=== PATIENT | male | born 1980 | race African-American/Black ===

== ENCOUNTER 2018-12-25 06:13 | Inpatient (IN) | payer OTHER ==
[~2018-12-25] VITALS: Ht 182.9 cm; Wt 93.4 kg
[2018-12-25] VITALS (14 sets, daily range): BP systolic 110–154; BP diastolic 66–96
--- NOTE | 2018-12-25 05:49 | Anethesia Preoperative Eval ---
Anesthesia Pre-op PMH/ROS General Date of Evaluation: Dec 25, 2018 Anesthesiologist: Jay ASA Score: ASA 1 Mallampati Score Class I : Soft palate, uvula, fauces, pillars visible Class II: Soft palate, uvula, fauces visible Class III: Soft palate, base of uvula visible Class IV: Only hard plate visible Mallampati Classification: Class I Surgeon: Sara Diagnosis: Lumbar radiculopathy Surgical Procedure: Left microdiscectomy L5-S1 Anesthesia History: none Family History: no anesthesia problems Allergies: Coded Allergies: CODEINE (Verified Allergy, Intermediate, hives, 12/24/18) Medications: see eMAR Patient NPO?: Yes NPO Date: Dec 24, 2018 NPO Time: 22:00 Past Medical History Cardiovascular: Denies: HTN, CAD, [place], valve dz, arrhythmia, other Pulmonary: Denies: asthma, COPD, GUTIERREZ, other Gastrointestinal/Genitourinary: Denies: GERD, CRI, ESRD, other Neurologic/Psychiatric: Denies: dementia, CVA, depression/anxiety, TIA, other Endocrine: Denies: DM, hypothyroidism, steroids, other HEENT: Denies: cataract (L), cataract (R), glaucoma, [place] (L), [place] (R), other Hematology/Immune: Denies: anemia, DVT, bleeding disorder, other Musculoskeletal/Integumentary: Denies: OA, RA, DJD, DDD, edema, other PSxH Narrative: Denies Anesthesia Pre-op Phys. Exam Physician Exam see chart Constitutional: NAD Cardiovascular: RRR Respiratory: CTA Airway Exam Mallampati Score: Class II MO: full ROM: full Anesthesia Pre-op A/P Labs see chart Studies Pre-op Studies: EKG - sr Risk Assessment & Plan Assessment: ASA II Plan: GA Status Change Before Surgery: No Pre-Antibiotics Drug: Sulma Mills MD Dec 25, 2018 05:49
[~2018-12-25 06:13] MED LIST: DiphenhydrAMINE 50mg/ml Inj IVP PRN; LORazepam Inj 2mg/ml 1ml IV PRN; LR 1000ml 1,000 ML IVLG SCH; Midazolam 2mg/2ml Inj IVP PRN; ceFAZolin sod 2 GM in D5W 55 ML IVPB ONE; fentaNYL 100 mcg/2 mL IV PRN
[2018-12-25] MEDS ORDERED: Midazolam 2mg/2ml Inj ONE (06:16)
[2018-12-25] MEDS ORDERED: fentaNYL 100 mcg/2 mL IV ONE (06:16)
[2018-12-25] MEDS ORDERED: Propofol 200mg/20ml IV ONE (06:16)
[2018-12-25] MEDS ORDERED: Lidocaine 1% MPF 10mg/ml 5ml ONE (06:16)
[2018-12-25] MEDS ORDERED: Gelfoam Size TOPIC ONE (06:28)
[2018-12-25] MEDS ORDERED: Thrombin 5000 units TOPIC ONE ×2 (06:28→08:08)
[2018-12-25] MEDS ORDERED: Bacitracin 50000 Units Vial ONE (06:28)
[2018-12-25] MEDS ORDERED: Bupivacaine w/Epi 0.5% 30ml Vial INJ ONE (06:28)
--- NOTE | 2018-12-25 06:41 | Pre-Procedure Note/Attestation ---
Pre-Procedure Note/Attestation Complete Prior to Procedure Planned Procedure: left Procedure Narrative: left l5s1 microdiscectomy hemilaminotomy foraminotomy Indications for Procedure Pre-Operative Diagnosis: Left L5S1 herniation Attestation I attest that I discussed the nature of the procedure; its benefits; risks and complications; and alternatives (and the risks and benefits of such alternatives ), prior to the procedure, with the patient (or the patient's legal account retention representative). I attest that, if there was a reasonable possibility of needing a blood transfusion, the patient (or the patient's legal account retention representative) was given the [facility] standardized written summary, pursuant to the Alexandre Gardi Blood Safety Act ([place] Health and Safety Code # 1645, as amended). I attest that I re-evaluated the patient just prior to the surgery and that there has been no change in the patient's H&P, except as documented below: Renny Ruiz MD Dec 25, 2018 06:41
--- NOTE | 2018-12-25 06:42 | Brief Operative Note ---
Immediate Post Operative Note Operative Note Chief Complaint: back pain and radiculopathy Pre-op Diagnosis: Left L5S1 herniation Procedure: left l5s1 microdiscectomy hemilaminotomy foraminotomy Post-op Diagnosis: same as pre-op Findings: consistent w/pre-op dx studies Surgeon: Sara Technical Support Coordinator: Glen Anesthesia: general Specimen: none Complications: none Condition: stable Fluids: IVF Estimated Blood Loss: minimal Drains: none Implant(s) used?: Renny Dang MD Dec 25, 2018 06:42
[2018-12-25] MEDS ORDERED: Norco 5mg/325mg tab ORAL PRN (06:45)
[2018-12-25] MEDS ORDERED: Milk of Magnesia 30ml Ud ORAL PRN (06:45)
[2018-12-25] MEDS ORDERED: Morphine Sulfate 2mg/ml Inj(IV/IM USE ONLY) IV PRN (06:45)
[2018-12-25] MEDS ORDERED: Chloraseptic Spray 20mL Bottle ORAL PRN (06:45)
[2018-12-25] MEDS ORDERED: HYDROcodone/Acetamin 7.5/325 tab ORAL PRN (06:45)
[2018-12-25] MEDS ORDERED: Metoclopramide 10mg/2ml Inj IVP PRN (06:45)
[2018-12-25] MEDS ORDERED: Naloxone 0.4mg/ml Inj IVP PRN (06:45)
[2018-12-25] MEDS ORDERED: Morphine Sulfate 4mg/ml Inj (IV USE ONLY) IV PRN (06:45)
[2018-12-25] MEDS ORDERED: Propofol 1,000mg/ 100ml btl IV ONE (07:00)
[2018-12-25] MEDS ORDERED: LR 1000ml ONE (07:00)
[2018-12-25] MEDS ORDERED: Sterile Water Irrig 1000ml IRRIG ONE (07:00)
[2018-12-25] MEDS ORDERED: CEPHALEXIN500 MG ORAL (07:38)
[2018-12-25] MEDS ORDERED: MULTIVITAMINS1 EAC2 ORAL (07:39)
[2018-12-25] MEDS ORDERED: Vancomycin 1gm vial IVPB ONE (07:59)
[2018-12-25] MEDS ORDERED: NS Irrig 1000ml IRRIG ONE (08:07)
[2018-12-25] MEDS ORDERED: Ropivacaine 5mg/ml Vial 30ml INJ ONE (08:29)
[2018-12-25] MEDS ORDERED: Neosporin Oint Ud Pkt TOPIC ONE (08:45)
--- NOTE | 2018-12-25 09:05 | NUR ---
CASE MANAGEMENT:REVIEW 38 YR OLD MALE HERE FOR ELECTIVE SURGERY SI: BACK PAIN AND RADICULOPATHY 97.8 58 18 124/79 97% ON RA IS: TO SURGERY FOR: MICRODISCECTOMY HEMILAMINOTOMY FORAMINOTOMY IV ANCEF Q8HRS IV DECADRON Q6HRS : CURRENTLY IN SURGERY INTERQUAL CRITERIA MET
--- NOTE | 2018-12-25 09:09 | Immediate Post-Op Evaluation ---
Immediate Post-Op Evalulation Immediate Post-Op Evalulation Procedure: Left microdicectomy L5-S1 Date of Evaluation: Dec 25, 2018 Time of Evaluation: 09:10 IV Fluids: 700 Blood Products: 0 Estimated Blood Loss: 25 Urinary Output: 0 Blood Pressure Systolic: 112 Blood Pressure Diastolic: 71 Pulse Rate: 60 Respiratory Rate: 18 O2 Sat by Pulse Oximetry: 100 Temperature (Fahrenheit): 97.1 Pain Score (1-10): 0 Nausea: No Vomiting: No Complications 0 Patient Status: awake, reacts, patent, none Hydration Status: adequate Drug: Ancef 2g Given Within 1 Hr of Incision: Yes Time Given: 07:15 Sulma Goff MD Dec 25, 2018 09:09
--- NOTE | 2018-12-25 11:50 | NUR ---
NURSE NOTES: RN RECEIVED PT FROM BERNARDO VELOZ RN. STABLE CONDITION. VSS. PT URINATED USING URINAL 1,000CC. IN NO APPARENT DISTRESS AT THIS TIME. PT IS DISORIENTED BUT OPENS EYES SPONTANEOUSLY TO VOICE. ABLE TO FOLLOW COMMANDS. GIRLFRIEND AT BEDSIDE. BED IN LOWEST POSITION WITH BEDSIDE RAILS X2 RAISED. CALL LIGHT WITHIN REACH. WILL CONTINUE TO MONITOR.
--- NOTE | 2018-12-25 12:34 | Diagnostic Imaging Report ---
INDICATION: Pain, intraoperative TECHNIQUE: Intraoperative imaging Fluoroscopy time: 4.1 seconds Total dose: 0.11864 mGym2 Total number of images: One COMPARISON: None FINDINGS: Intraoperative image demonstrates surgical tool projected at the posterior aspect of what is presumably the L5-S1 disc IMPRESSION: Intraoperative imaging, as described
[2018-12-25] MEDS: Dexamethasone 4mg/ml vial IVP SCH ×2 (12:58→17:25)
[2018-12-25] MEDS: NS w/KCl 20mEq 1,000 ML IV SCH ×2 (12:58→21:15)
[2018-12-25] MEDS: Morphine Sulfate 4mg/ml Inj (IV USE ONLY) IV PRN ×2 (14:09→17:25)
[2018-12-25] MEDS: HYDROmorphone 1mg/ml Carpuject IVP PRN ×2 (15:11→19:51)
[2018-12-25] MEDS: ceFAZolin sod 1 GM in D5W 55 ML IV SCH ×2 (15:11→21:15)
[2018-12-25] MEDS: DiphenhydrAMINE 50mg/ml Inj IVP PRN ×2 (16:33→21:25)
[2018-12-25] MEDS: Docusate 100mg cap ORAL SCH (17:25)
--- NOTE | 2018-12-25 18:00 | NUR ---
NURSE NOTES: PT RE-EDUCATED ON NOT TWISTING AND TURNING BODY WHEN REPOSITIONING. NEEDS RN ASSIST WHEN DOING LOG ROLL. PT VERBALIZED UNDERSTANDING OF TEACHING. PT TOLERATING LUNCH, ASKS TO BE UPGRADED TO REGULAR DIET. PT EXPERIENCING ITCHING WITH DILAUDID IVP. DR HILL MADE AWARE AND RECEIVED ORDER FOR PRN BENADRYL 25MG IVP AND OK TO ADVANCE TO REGULAR DIET. BED IN LOWEST POSITION WITH BEDSIDE RAILS X2 RAISED. PT LYING IN SUPINE POSITION, ICE PACK APPLIED TO SURGICAL SITE. WILL CONTINUE TO MONITOR.
--- NOTE | 2018-12-25 18:53 | 48 Hour Post Anesthesia Eval ---
Post Anesthesia Evaluation Procedure: Left microdicectomy L5-S1 Date of Evaluation: Dec 25, 2018 Time of Evaluation: 18:52 Blood Pressure Systolic: 140 0: 82 Pulse Rate: 59 Respiratory Rate: 20 Temperature (Fahrenheit): 97.6 O2 Sat by Pulse Oximetry: 99 Airway: patent Nausea: No Vomiting: No Pain Intensity: 3 Hydration Status: adequate Cardiopulmonary Status: Stable Mental Status/LOC: patient returned to baseline Follow-up Care/Observations: 0 Post-Anesthesia Complications: 0 Follow-up care needed: N/A Moshe Wells MD Dec 25, 2018 18:53
--- NOTE | 2018-12-25 20:07 | NUR ---
HAND-OFF: Report given to John Paul TANG RN.
--- NOTE | 2018-12-25 21:00 | Operative Note - Dictated ---
DATE OF OPERATION: 12/25/2018 SURGEON: Renny Ruiz MD, Orthopaedic Spine Surgeon. TUBE MACHINE OPERATOR SURGEON: Gabo Carroll M.D. ANESTHESIA: General endotracheal anesthesia. PREOPERATIVE DIAGNOSES: 1. Intractable back pain. 2. Intractable leg pain. 3. Worsening radiculopathy. 4. Weakness. 5. Herniated nucleus pulposus, L5-S1 herniation. 6. Neural foraminal stenosis, L5-S1. POSTOPERATIVE DIAGNOSES: 1. Intractable back pain. 2. Intractable leg pain. 3. Worsening radiculopathy. 4. Weakness. 5. Herniated nucleus pulposus, L5-S1 herniation. 6. Neural foraminal stenosis, L5-S1. PROCEDURES PERFORMED: 1. Left-sided L5-S1 microdiscectomy. 2. L5-S1 hemilaminotomy, foraminotomy, and medial facetectomy. 3. L5-S1 neural foraminotomy 4. Use of intraoperative microscope. 5. Supervision and interpretation of intraoperative fluoroscopy. 6. Supervision and interpretation of somatosensory-evoked potential and free-running EMG monitoring. ESTIMATED BLOOD LOSS: Less than 100 mL. COMPLICATIONS: None. INDICATIONS FOR THE PROCEDURE: Jared presents for intractable back pain and radiculopathy. The patient tried and failed a prolonged course of conservative management, including but not limited to chiropractic therapy, physical therapy, nonsteroidal anti-inflammatory drugs, medication, ice packs as well as epidural injection. Despite these therapies, the patient still developed recalcitrant pain and elected for definitive management in the form of left-sided L5-S1 microdiscectomy; L5-S1 hemilaminotomy, foraminotomy, and medial facetectomy We had a long discussion with him regarding definitive surgical treatment options. Jared has two issues at hand one is the testicular pain and the other is the radicular pains and back pains. The patient's MRI demonstrated herniated nucleus pulposus, L5-S1 herniation and neural foraminal stenosis, L5-S1, and as a result, I felt this was the cause of his radiculopathy and back pains and not necessarily his testicular pains so as a stage one procedure I felt that he would benefit from the discectomy as well as neural foraminotomy at this level. He understands that he may need more procedures for his testicular pains at a later date. We had a long discussion with the patient regarding the risks, alternatives, and benefits of surgery. Our description of the risks included a discussion in person as well as a signed consent which detailed all pertinent risks and the procedure itself. Briefly, our discussion included but was not limited to infection, bleeding, pseudarthrosis, spinal cord injury, neurovascular injury, dural tear, CSF leak, neuropathy, paralysis, permanent weakness/drop foot, paresthesias blindness, palsy, and weakness. The patient understood there may be a need for revision surgery or additional procedures. Approach-related complications including dysphonia, dysphagia, blindness, permanent vocal cord and neural injury, hematoma, swallowing and breathing difficulty. Medical complications including liver, kidney, shock, and cardiopulmonary failure. Anesthesia complications including , swelling. Damage to the musculature, larynx (voice injury or loss),esophagus (throat), trachea, blood vessels and muscles (muscular sprain) and lungs (pneumothorax) during this surgical procedure. Injury to deeper structures may be temporary or permanent. The patient understood these and elected to proceed. A written and verbal consent was given. We discussed the pros and cons of all the alternatives. We discussed the uncertainties associated with the decision. Afterwards, I assessed the patient's understanding and explored their preferences. All questions were answered and no guarantees were given. Medical clearance was obtained prior to surgery. INTRAOPERATIVE FINDINGS: There was a rather large disc herniation noted on the left foraminal interspace at L5-S1 which was seen through a clear tear in the posterior longitudinal ligament. A fragment was protruding outside the PLL. This was carefully mobilized and peeled off the corresponding neural elements using a combination of arthroscopic pituitary, narrow pituitary and there was acute tear in the disc meaning that it was not calcified and/or hardened as a contrary to disc herniation. DESCRIPTION OF PROCEDURE: Under the benefit of general endotracheal anesthesia and with the assistance of the entire operative team, the patient was moved from the [facility] onto the operative table in the prone position on a Magnus frame. The head was secured and positioned appropriately. Bilateral arms were secured with Gel pads and foam and all bony prominences were padded. The bilateral lower extremity SCD and LUDY hose were placed for DVT prophylaxis. A surgical timeout was called which corroborated our planned procedure. Preoperative antibiotics were administered within 30 minutes of the incision for prophylaxis. Decadron was given for preoperative steroids. Using lateral radiography, the operative levels were delineated. An incision was marked based on our interpretation of lateral radiography and afterwards the body was prepped and draped in the usual sterile manner. The family was notified that we were ready to commence surgery and were called in the waiting room hourly for updates. An incision was based on our lateral fluoroscopic image to center the incision at the L5-S1 interspace. The wound was prepped and draped in the usual sterile fashion. Using a scalpel, a midline incision was taken down through the skin and subcutaneous tissues until the overlying hemilaminae of L5-S1 were visualized. Next, using meticulous hemostasis, hemilamotomies were dissected and retractors were placed. Using a MostLikely dental, we confirmed placement at the L5-S1 interspace. We next turned our attention to our decompression. A standard hemilaminotomy, foraminotomy, and medial facetectomy was performed at each level in standard fashion using a Midas-Arjun type AM8 drill bit, straight and angled curettage, and [place] 4 rongeurs until the lateral thecal sac margin and traversing nerve root was visualized. All remainders of the ligamentum flavum and lateral bony margins were resected in total with angled curettage and [place] 4 rongeurs until the lateral thecal sac margin and traversing nerve root was visualized and decompressed. We next turned our attention toward our L5-S1 microdiscectomy on the left side. A [place] 4 was used to gently mobilize the thecal sac medially and this was held retracted with a bayonetted nerve root retractor. It was at this point that we noted a large broad-based disc protrusion with encroachment dorsally on the thecal sac neural foraminal contents. A bayonet and nerve root retractor was then placed carefully to retract the thecal sac and a discectomy was performed using a combination of a long handled 15 blade scalpel, downgoing and straight pituitaries, and downgoing curettage. Afterward the disc space was irrigated twice with 20 mL of antibiotic-impregnated saline. All loose and free-floating disc fragments were carefully resected with a narrow pituitary. Having been satisfied with our decompression after our discectomy of all neural elements, we next turned our attention to our neural foraminoplasty/foraminotomy. This was performed with a combination of kerrison rongeurs and pituitaries which allowed for re-creation of the neural foraminal arch at L5-S1. Afterwards hemostasis was obtained with 60 mL of antibiotic-impregnated saline followed by FloSeal and Gelfoam. After sponge and needle count were found to be correct, next we turned our attention to closure. Closure consisted of 1-0 Vicryl in standard interrupted fashion. Zosyn was placed deep to the fascia and superficial to the fascia for antibiotic prophylaxis. Skin closure was performed with 2-0 Vicryl in interrupted fashion followed by a running Monocryl for the skin. Final dressings consisted of Dermabond for the superficial skin, Telfa, and Tegaderm. The patient tolerated the procedure well. The patient was extubated after the conclusion of surgery without incident. We discussed the findings of the surgery with the family upon completion of the case. At this point, the patient will be transferred to the spine floor for further observation. Renny Ruiz M.D. DR: Catalino JOB#: [id number] CC: MELONY
[2018-12-25] MEDS: HYDROcodone/Acetamin 7.5/325 tab ORAL PRN (21:25)
--- NOTE | 2018-12-25 22:17 | NUR ---
NURSE NOTES: Patient in bed awake and oriented. VSS. 08/06 surgical pain noted. PRN Dilaudid given. PRN reglan given as well. Per patient he usually starts to itch when given Dilaudid and he wants to take it with Benadryl but it was not due yet. Per patient he stated its fine. Needs attended. Due meds given. Dressing is clean and dry. In stable condition.
--- NOTE | 2018-12-25 22:23 | NUR ---
NURSE NOTES: PRN Benadryl given for itching. No hives or skin redness. Will continue to monitor.
[2018-12-26] VITALS: BP 114/63
[2018-12-26] MEDS: Dexamethasone 4mg/ml vial IVP SCH ×2 (00:04→06:00)
[2018-12-26 04:00] VITALS: BP 108/63
[2018-12-26] MEDS: HYDROcodone/Acetamin 7.5/325 tab ORAL PRN ×2 (04:00→08:44)
[2018-12-26] MEDS: ceFAZolin sod 1 GM in D5W 55 ML IV SCH (06:49)
--- NOTE | 2018-12-26 07:55 | NUR ---
NURSE NOTES: Received report from Yayo Mcclure RN. Patient a/o x4 lying on the bed. c/o 5/10 pain on back surgical site. Soma was given. Back surgical site is dry and intact. IV patent. Bed in lowest position, call light within reach. Will continue to monitor.
[2018-12-26 08:00] VITALS: BP 124/85
[2018-12-26] MEDS: Docusate 100mg cap ORAL SCH (08:43)
[2018-12-26] MEDS: HYDROmorphone 1mg/ml Carpuject IVP PRN (10:22)
[2018-12-26] MEDS: DiphenhydrAMINE 50mg/ml Inj IVP PRN (10:22)
--- NOTE | 2018-12-26 10:22 | NUR ---
REHAB MED PT NOTE CONSULT RECEIVED, CHIARA COMPLTED, PATIENT WILL BENEFIT FROM SKILLED PT DURING STAY FOR RETURN TO [facility]. RECOMEND HOME AT [place]. SPINAL PRECAUTIONS REVIEWED, LOG ROLL SHOWN. PATIENT PREFERRED USE OF CRUTCHES FOR ADDITIONAL COMFORT WITH GAIT, NO LOSS OF BALANCE, SBA FOR ALL MOBILITY. PLAN OF CARE INITIATD. EPIFANIO GALLOWAY PT DPT Addendum: 12/26/18 at 1022 by EPIFANIO GALLOWAY PT Amended: Links added.
--- NOTE | 2018-12-26 10:43 | NUR ---
CASE MANAGEMENT:REVIEW 12/26/18 SI: POD #1 S/P MICRODISCECTOMY HEMILAMINOTOMY FORAMINOTOMY 97.6 64 20 124/85 98% ON RA IS: COLACE PO BID IV BENADRYL Q4 PRN NORCO PO Q3HRS PRN IV DILAUDID Q2HRS PRN : MED/SURG STATUS 3 EAST
[2018-12-26 12:00] VITALS: BP 127/83
--- NOTE | 2018-12-26 13:20 | NUR ---
NURSE NOTES: Patient stat last BM was [address] Ruiz notified. ordered ducolax suppository one time. Noted and carried out.
--- NOTE | 2018-12-26 14:00 | NUR ---
NURSE NOTES: Patient refused suppository and have BM right now.
--- NOTE | 2018-12-26 15:45 | Discharge Summary ---
DATE OF ADMISSION: 12/25/2018 DATE OF DISCHARGE: 12/26/2018 DATE OF ADMISSION: 12/25/2018 DATE OF DISCHARGE: 12/26/2018 PROCEDURE PERFORMED DURING ADMISSION: Microdiskectomy, lumbar 5-sacral 1, left sided. REASON FOR ADMISSION: Herniation, lumbar 5-sacral 1. HOSPITAL COURSE/TREATMENT RENDERED: DISCHARGE PHYSICAL EXAM: 1. Patient was ambulating with and without the assistance of physical therapy. 2. Prior to discharge home incision was clean and dry with minimal swelling. 3. Follows commands. 4. Alert and oriented. 5. Weber discontinued, voiding. 6. Incentive spirometer at bedside. 7. IVF hep locked. MOTOR: Demonstrates expected postoperative bulk and tone. Moves biceps, triceps, and deltoid musculature on command. Moves hip flexors, quadriceps, tibialis anterior, EHL, gastrocsoleus musculature on command as well. TREATMENT RENDERED: 1. Daily nursing care. 2. Physical Therapy. 3. Occupational Therapy. 4. Intravenous medications. 5. Oral medications. 6. Daily postoperative examinations by Spine surgery team. CONDITION OF PATIENT ON DISCHARGE: The condition on discharge is stable for discharge to home. DISCHARGE INSTRUCTIONS: Our specific instructions relating to physical activity, medications diet and follow-up care are detailed in our standard operative folder and were given to this patient prior to surgery. We will however summarize these briefly as stated below. Regarding physical activity we would like the patient to limit their flexion, extension and rotation. We also require a limitation on their bending lifting and twisting. All medication has been called in prior to surgery to their pharmacy of choice. They can resume their regular diet once tolerated. We would like them to shower and limit soaking the wound in a tub/Jacuzzi/the ocean for a period of one month or until the incision is completely healed. We will have them follow up in our office in three weeks time for their regularly scheduled appointment. They understand to call our office tomorrow to schedule the time for their three week followup appointment. The patient will notify us should they experience any increase in the severity of pain, redness/swelling/ or drainage from their incision. Renny Ruiz M.D. DR: DES JOB#: [id number] CC:
[2018-12-26 16:00] VITALS: BP 111/61
--- NOTE | 2018-12-26 16:30 | NUR ---
NURSE NOTES: Discharge instruction was given. Belongings checked with the patient. Removed IV line. Patient discharged accompanied by his girl friend in stable condition.
[2018-12-26] MEDS ORDERED: NS 275ml ONE (16:59)
[2018-12-26] MEDS ORDERED: NS Irrig 1000ml ONE (16:59)
== END 2018-12-26 17:00 | disposition home or self-care (01) | DRG 520 ==
LOC: SDSOVERFLO 06:13 → 3E 11:03
PROC: 01NB0ZZ Release Lumbar Nerve, Open Approach (ICD-10-PCS; principal; 2018-12-25 06:30)
PROC: 0SB40ZZ Excision of Lumbosacral Disc, Open Approach (ICD-10-PCS; principal; 2018-12-25 06:30)
DX: M51.17 Intervertebral disc disorders with radiculopathy, lumbosacral region (principal); M48.07 Spinal stenosis, lumbosacral region; E66.9 Obesity, unspecified
CPT/HCPCS: 36415; 72020; 76000; 86850; 86900; 86901; 87081; 94003; 94150; J2250; J2405; J2765

== ENCOUNTER 2019-02-05 11:00 | Emergency (ER) | payer SELFPAY ==
[~2019-02-05] VITALS: Ht 182.9 cm; Wt 93.0 kg
[~2019-02-05 11:00] MED LIST changes: +CEPHALEXIN500 MG ORAL; -DiphenhydrAMINE 50mg/ml Inj IVP PRN; -LORazepam Inj 2mg/ml 1ml IV PRN; -LR 1000ml 1,000 ML IVLG SCH; +MULTIVITAMINS1 EAC2 ORAL; -Midazolam 2mg/2ml Inj IVP PRN; -ceFAZolin sod 2 GM in D5W 55 ML IVPB ONE; -fentaNYL 100 mcg/2 mL IV PRN
--- NOTE | 2019-02-05 11:23 | NUR ---
ED Nurse Note: PT WALKED IN TO ER TODAY FROM HOME. AOX4. PT C/O HEADACHE, PAIN 10/10, LOWER BACK PAIN RADIATING TO BILATERAL HIPS, AND LEFT LEG PAIN X 6 DAYS AGO. PT ALSO C/O NUMBNES OF LEFT LEG X HAVING BACK SURGERY 11/2018. PT STATES HE WAS DRIVING LONG DISTANCE X 6 DAYS AGO AND THAT PAIN HAS BEEN BAD SINCE THEN. GAIT STEADY. PT DENIES DIZZINESS.
[2019-02-05 11:27] VITALS: BP 125/83
[2019-02-05] MEDS ORDERED: Metoclopramide 10mg/2ml Inj IVP ONE (11:30)
[2019-02-05] MEDS ORDERED: Gadavist 7.5mMol/7.5ml vial IV PRN (11:45)
[2019-02-05 11:59] LABS: EOSINOPHILS % (AUTO) 3.6 % (0.0-3.0); HEMATOCRIT 44.5 % (42.0-52.0); HEMOGLOBIN 15.6 G/DL (14.2-18.0); LYMPHOCYTES % (AUTO) 19.7 % (20.0-45.0); MEAN CORPUSCULAR VOLUME 92 FL (80-99); MONOCYTES % (AUTO) 10.4 % (1.0-10.0); NEUTROPHILS % (AUTO) 65.3 % (45.0-75.0); PLATELET COUNT 117 K/UL (150-450); RED BLOOD COUNT 4.84 M/UL (4.70-6.10); RED CELL DISTRIBUTION WIDTH 11.7 % (11.6-14.8); WHITE BLOOD COUNT 5.1 K/UL (4.8-10.8)
[2019-02-05 11:59] LABS: APPEARANCE,URINE CLEAR; BILIRUBIN, URINE NEGATIVE (NEGATIVE); GLUCOSE, URINE (UA) NEGATIVE (NEGATIVE); KETONES,URINE NEGATIVE (NEGATIVE); LEUKOCYTE ESTERASE ,URINE 1+ (NEGATIVE); NITRITE,URINE NEGATIVE (NEGATIVE); PH,URINE 7 (4.5-8.0); PROTEIN,URINE 1+ (NEGATIVE); UROBILINOGEN,URINE 1 MG/DL (0.0-1.0)
[2019-02-05] MEDS ORDERED: Solu-MEDROL 125mg Inj IVP ONE (12:00)
[2019-02-05] MEDS ORDERED: Morphine Sulfate 4mg/ml Inj (IV USE ONLY) IVP ONE ×2 (12:00→15:45)
[2019-02-05] MEDS ORDERED: DiphenhydrAMINE 50mg/ml Inj IVP ONE (12:00)
[2019-02-05 12:04] LABS: COLOR,URINE YELLOW
[2019-02-05 12:12] LABS: ANION GAP 9 mmol/L (5-15); BLOOD UREA NITROGEN 12 mg/dL (7-18); CALCIUM 9.1 MG/DL (8.5-10.1); CARBON DIOXIDE 28 MMOL/L (21-32); CHLORIDE 105 MMOL/L (98-107); SODIUM 142 MMOL/L (136-145)
[2019-02-05 12:16] LABS: ALANINE AMINOTRANSFERASE 73 U/L (12-78); ALBUMIN 3.8 G/DL (3.4-5.0); ALBUMIN/GLOBULIN RATIO 0.9 (1.0-2.7); ALKALINE PHOSPHATASE 73 U/L (46-116); ASPARTATE AMINO TRANSFERASE 32 U/L (15-37); BILIRUBIN,TOTAL 0.5 MG/DL (0.2-1.0)
--- NOTE | 2019-02-05 12:22 | NUR ---
ED Nurse Note: PT TO MRI VIA ANDREW.
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
--- NOTE | 2019-02-05 16:02 | Diagnostic Imaging Report ---
Indication: Severe headache, history of recent lumbar spine surgery Technique: sagittal T1 fast spin echo, axial T1 and T2 FLAIR PROPELLER,, sagittal T2 FLAIR PROPELLER, axial T2 FS PROPELLER, T2* GRE, axial diffusion weighted images, post contrast axial and coronal T1 FLAIR PROPELLER images. ADC and exponential ADC maps generated Comparison: none Findings: . No abnormal areas of restricted diffusion to suggest acute infarction. No acute hemorrhage or edema. No mass effect nor midline shift. No abnormal contrast enhancement. Normal size ventricles and extra axial CSF spaces. There is a left maxillary sinus mucous retention cyst incidentally noted. . Impression: Negative Incidental finding of left maxillary sinus mucous retention cyst
--- NOTE | 2019-02-05 16:09 | Diagnostic Imaging Report ---
Indication: Headache, whole-body pain, status post recent spine surgery Technique: Sagittal T1 FLAIR, sagittal T2 FRFSE, sagittal STIR, axial T2 FRFSE, axial 3-D COSMIC ASPIR, pre and postcontrast axial and sagittal T1 FSE images of the cervical spine Comparison: none Findings: There is some image degradation due to motion artifact. Bony alignment is normal. Vertebral marrow signal is normal. The vertebral body heights are preserved. The disc heights are preserved. The intrinsic cord signal is normal. No significant disc bulge or protrusion, spinal stenosis, or neural foraminal stenosis is demonstrated. No unusual contrast enhancement is demonstrated The included extraspinal soft tissues are unremarkable Impression: Negative
--- NOTE | 2019-02-05 16:17 | Diagnostic Imaging Report ---
Indication: Headache, back and body pain status post spinal surgery Technique: Sagittal T1 FLAIR PROPELLER, sagittal T2 PROPELLER, sagittal STIR, axial T1 FLAIR PROPELLER, axial T2 PROPELLER, pre and postcontrast axial and sagittal T1 fat-saturated images of the thoracic spine Comparison: none Findings: The bony alignment is normal. Vertebral body heights are preserved. The disc spaces are preserved. Vertebral marrow signal is normal. Vertebral disc signal is normal. Intrinsic cord signal is normal. There is prominent posterior epidural fat. No significant disc bulge or protrusion, spinal stenosis, or neural foraminal stenosis is demonstrated. No unusual contrast enhancement is demonstrated. There is incidental finding of multiple left renal cysts. The remaining extraspinal soft tissues are unremarkable. Impression: Essentially unremarkable exam Incidental finding of left renal cysts
--- NOTE | 2019-02-05 16:39 | Diagnostic Imaging Report ---
Indication: Back pain and headache, status post recent spinal surgery Technique: Sagittal T1, sagittal T2 PROPELLER, sagittal STIR PROPELLER, axial T2 FRFSE, axial T1, axial T2 PROPELLER with disc cuts,. Pre and postcontrast fat saturated sagittal and axial T1-weighted images Comparison: none Findings: Posterior to L5, there is enhancement of the subcutaneous fat and of the musculature surrounding the L5 spinous process, particularly to the left of midline. The enhancement extends through what appears to be a left-sided L5 laminotomy defect, and into the left side of the epidural space at and below the level of the L5-S1 disc. The enhancing epidural fat is only mildly thickened and only minimally if at all compresses or displaces the spinal canal. The enhancement does surround the left S1 nerve root. No focal nonenhancing area to suggest abscess is demonstrated. The T2 images also do not show any focal fluid collections, either epidural or paraspinal. No abnormal psoas muscle enhancement is demonstrated. There is posterior disc protrusion at L5-S1, with the disc protruding approximately 5 mm beyond the posterior border of the vertebral body. There is minimal narrowing of the disc at this level, and the disc demonstrate loss of STIR signal, unlike the other lumbar discs. No evidence of intradiscal fluid. There is no evidence of disc enhancement or enhancement of the adjacent vertebral bodies. There is a small high intensity zone within the protruding disc. The disc abnormality does not result in any evidence of spinal canal stenosis and there is no neural foraminal compromise. There is minimal increased T1 and T2, decreased STIR signal at the L5 inferior endplate, presumably reflecting mild Modic type 2 degenerative changes. The bony alignment is normal. The vertebral body heights are preserved. The disc spaces are otherwise preserved. The vertebral marrow signal is normal other than the inferior L5 changes described above. The conus medullaris terminates at the L1 level. Normal distribution of the nerve roots. At the other levels, no significant disc bulge or protrusion, spinal stenosis, or neural foraminal stenosis. The included extra spinal soft tissues are remarkable for the presence of left renal cysts. Impression: There is evidence of prior surgery, with a laminotomy defect involving the left L5 lamina. There is soft tissue edema and enhancement along an incision posterior to L5, along the paraspinous musculature at and below L5, with enhancement extending into the laminectomy defect and occupying the left lateral and anterior epidural space at and just below the L5-S1 disc. Whether edema and enhancement is due to routine post surgical inflammatory changes or represents an element of infection is uncertain. However, there is no evidence of any organized fluid collection to suggest abscess, either epidural or within the paraspinous musculature. There is also no evidence of psoas inflammation. The inflammation surrounds the left S1 nerve root, but there is no evidence of spinal canal or nerve root compression related to this. No evidence of discitis or osteomyelitis Mild L5 disc degeneration, with posterior central protrusion of the disc, small high intensity zone, and adjacent L5 inferior endplate Modic type II changes Incidental finding left renal cysts
[2019-02-05] MEDS ORDERED: Ketorolac 30mg Inj IV ONE (16:45)
--- NOTE | 2019-02-05 17:45 | NUR ---
ED Nurse Note: PT PROVIDED WITH DINNER TRAY.
--- NOTE | 2019-02-05 18:05 | NUR ---
ED Nurse Note: US AT BEDSIDE.
[2019-02-05 19:06] VITALS: BP 120/80
--- NOTE | 2019-02-05 19:07 | NUR ---
ED Nurse Note: PT LAYING PEACEFULLY IN BED IN NAD. AOX4. DISCHARGE PAPERWORK EXPLAINED TO PT. PT VERBALIZES UNDERSTANDING AND ALL QUESTIONS ANSWERED. DISCHARGE PAPERWORK GIVEN TO PT, IV AND ID WRISTBAND REMOVED. PT WALKED OUT OF ER WITH STEADY GAIT AND ALL BELONGINGS.
--- NOTE | 2019-02-06 02:45 | History and Physical Report ---
DATE OF ADMISSION: 02/05/2019 NOTE: "POOR AUDIO QUALITY" CHIEF COMPLAINT: Lower left-sided testicle pain and headaches with neck pain. HISTORY OF PRESENT ILLNESS: The patient is a 38-year-old male who has a history of prior lumbar hemilaminotomy and microdiscectomy performed at [facility] on December 25, 2018, at L5-S1, left-sided. He currently reports noted pain that is significant, increase of his pain, and presents to emergency room for workup and previously postsurgical and noted a complete resolution of his back pain, resolution of his lower extremity radicular symptoms, however, he described persistent left-sided testicular pain. Now, he describes pains which have returned. He also noted abnormal sensation of his hands with numbness and tingling in all of his fingers. Upon further discussion, the patient has recently traveled by a long airplane drive to [place] and after he [place], he of the pain. Upon further discussion, while in [place], for four days in a row, he traveled 6 hours each day together with his son, who recently celebrated birthday. After the multiple-day stress, he developed a resurgence of present in his early postoperative stage. He currently describes the following symptoms. Headaches from the posterior aspect of the skull into the posterior orbit and posterior eye. Difficulty with vision in regard to wearing glasses and/or contacts, which gave him trouble with his vision and the headache began. Neck pain which he describes the pain . He also describes resolution of the low back pain still which was present in early postoperative stage, however, severe after the surgery. He has also noted an aggravation of his left-sided lower extremity radiculopathy. He also noted an aggravation of his left-sided testicular pain which before had resolved with the epidural injection, however, now it is more of a constant nature. He also described pain along the S1 distribution in his posterior thigh, posterior calf, his buttocks, and plantar aspect of his foot. He also noticed a definitive significant increase of his sensitivity to certain foods and appetite. He has had some nausea of note lately and has been vomiting three times . PAST MEDICAL HISTORY: Recent lumbar microdiscectomy at L5-S1 in November. PAST SURGICAL HISTORY: Microdiscectomy done by Dr. Ruiz at L5-S1, left-sided. PHYSICAL EXAMINATION: He has of vision in the hospital bed. He has just completed the ultrasound of his lower extremities. He has sensation fairly intact in almost of the along the anterior, medial, posterior aspect of the thighs and dorsum and plantar surface of the foot. Motor strength 5/5 throughout the extensor hallucis longus, peroneus musculature, tibialis anterior, gastrocsoleus, hamstring musculature as well as quadriceps. He was noted to have no pain with straight leg raise, elevation. Negative Homans sign and again no pain with plantar or dorsiflexion of the foot. He is completely comfortable at rest and no pain in or around his lower extremity and nontender incision, which is clean, dry, and intact with no swelling. Motor intact of the upper extremities with biceps, triceps, deltoid rated 5/5, throughout the lower extremities, sensation intact to . IMPRESSION AND PLAN: This is a 38-year-old male with prior microdiscectomy in November of L5-S1, who presents with new-onset resurgence of radicular symptoms following a recent trip and long distance travel. Today, the patient had an MRI of the cervical spine, thoracic spine, brain, and lumbar spine. The MRI report is stated by Radiology, however, my impression of the MRI of the brain, there is question of some plaque formation near the ventricle of the axial scans, however, I do not see any tracking along the ventricles perpendicular off the limbs, which is concerned at times for multiple sclerosis. On the cervical MRI, the MRI is of poor quality and there may be evidence of some scratchy artifact the cord itself with of the multiple sclerosis. I discussed this with the patient that I think at this point that symptoms of the upper extremity and lower extremity may be related to neurologic condition. With that, I would recommend a neurologist. He will try to help accommodate this with recommendation. His MRI of lumbar spine demonstrates postsurgical changes with an L5-S1 herniation in comparison with a prior MRI, which was significantly smaller in size. The disk itself has decreased in height. There is a small area of the disk protruding posteriorly and along the left neural foramina. I discussed this with the patient it may be attributable to reherniation versus postsurgical changes only after surgery which have been underlying. His left testicular pain at this time is decreased with medication given in the emergency room. I would recommend an epidural injection which was given by Dr. Paulino Whiteside again at the upper lumbar level of L1-L2, which in the past had significantly decreased his testicular pain. He is currently comfortable. He has no headaches, has no , has no leg radiculopathy whatsoever. He was therefore cleared to be discharged home and follow up after therapy appointment later this month on the . I gave him a prescription for Percocet 5/325 to be taken as needed. He . He has been instructed to take Benadryl while on Percocet to avoid any allergic reaction. Renny Ruiz M.D. DR: Catalino JOB#: [id number] CC:
--- NOTE | 2019-02-06 17:27 | Cardiology Report ---
APPROVED REPORT EKG Measurement Heart [id number] Normal sinus rhythm Normal ECG
== END 2019-02-05 19:08 | disposition home or self-care (01) ==
LOC: EMR 11:50
DX: R51 Headache (principal); N28.1 Cyst of kidney, acquired; M54.9 Dorsalgia, unspecified; Z98.890 Other specified postprocedural states; Z88.6 Allergy status to analgesic agent; Z88.5 Allergy status to narcotic agent
CPT/HCPCS: 36415; 70553; 72156; 72157; 72158; 80053; 81003; 85025; 85610; 85730; 86850; 86900; 86901; 93005; 93970; 96361; 96374; 96375; 96376; 99284; A9585; J1200; J1885; J2270; J2765; J2930

== ENCOUNTER 2020-07-22 08:25 | Day surgery (SDC) | payer OTHER ==
[~2020-07-22] VITALS: Ht 182.9 cm; Wt 86.6 kg
[2020-07-22] VITALS (8 sets, daily range): BP systolic 98–116; BP diastolic 58–74
--- NOTE | 2020-07-22 07:37 | Pre-Procedure Note/Attestation ---
Pre-Procedure Note/Attestation Complete Prior to Procedure Planned Procedure: right Procedure Narrative: knee diagnostic arthroscpy, possible menisectomy, synovectomy Indications for Procedure Pre-Operative Diagnosis: right knee internal derangment Attestation I attest that I discussed the nature of the procedure; its benefits; risks and complications; and alternatives (and the risks and benefits of such alternatives), prior to the procedure, with the patient (or the patient's legal manufacturers service representative). I attest that, if there was a reasonable possibility of needing a blood transfusion, the patient (or the patient's legal manufacturers service representative) was given the [facility] standardized written summary, pursuant to the Alexandre Josué Blood Safety Act ([place] Health and Safety Code # 1645, as amended). I attest that I re-evaluated the patient just prior to the surgery and that there has been no change in the patient's H&P, except as documented below: Gabo Carroll MD Jul 22, 2020 07:37
--- NOTE | 2020-07-22 07:37 | Operative Note - PDOC ---
Operative Note Operative Note Pre-op Diagnosis: right knee internal derangment Procedure: see op report Post-op Diagnosis: same as pre-op plus Operative Findings: consistent w/pre-op dx studies Anesthesia: MAC Specimen: none Complications: none Condition: stable Estimated Blood Loss: none Implant(s) used?: No Gabo Carroll MD Jul 22, 2020 07:37
[~2020-07-22 08:25] MED LIST changes: +CYCLOBENZAPRINE10 MG ORAL; +GABAPENTIN100 MG ORAL; +MELOXICAM15 MG PO; +ceFAZolin 1gm IVPB IVPB ONE; +celeBREX 200mg Cap **SURGERY PATIENTS ONLY ORAL ONE; +oxyCONTIN 20mg tab ORAL ONE
[2020-07-22] MEDS ORDERED: oxyCONTIN 20mg tab ORAL ONE (08:37)
[2020-07-22] MEDS ORDERED: celeBREX 200mg Cap **SURGERY PATIENTS ONLY ORAL ONE (08:37)
[2020-07-22] MEDS ORDERED: fentaNYL 100 mcg/2 mL IV ONE (09:41)
[2020-07-22] MEDS ORDERED: Midazolam 2mg/2ml Inj ONE (09:41)
[2020-07-22] MEDS ORDERED: Lidocaine 1% MPF 10mg/ml 5ml ONE (09:44)
[2020-07-22] MEDS ORDERED: Ketorolac 30mg Inj ONE ×2 (10:10→12:32)
[2020-07-22] MEDS ORDERED: Kenalog-40 1ml Vial ONE (10:10)
[2020-07-22] MEDS ORDERED: Duramorph PF 5mg/10ml amp ONE (10:10)
[2020-07-22] MEDS ORDERED: Bupivacaine 0.25% Inj 30ml INJ ONE (10:10)
[2020-07-22] MEDS ORDERED: Lidocaine 1% 10mg/ml/Epi 0.005mg/ml 30ml vial INJ ONE (10:11)
--- NOTE | 2020-07-22 10:39 | Anethesia Preoperative Eval ---
Anesthesia Pre-op PMH/ROS General Date of Evaluation: Jul 22, 2020 Time of Evaluation: 10:36 Anesthesiologist: Elizabeth ASA Score: ASA 2 Mallampati Score Class I : Soft palate, uvula, fauces, pillars visible Class II: Soft palate, uvula, fauces visible Class III: Soft palate, base of uvula visible Class IV: Only hard plate visible Mallampati Classification: Class II Surgeon: Glen Diagnosis: R knee pain Surgical Procedure: R knee cope Anesthesia History: none Family History: no anesthesia problems Allergies: Coded Allergies: CODEINE (Verified Allergy, Intermediate, hives, 12/24/18) Uncoded Allergies: RED MEAT (Adverse Reaction, Unknown, ANAPHYLACTIC SHOCK, 12/25/18) Medications: see eMAR Patient NPO?: Yes Past Medical History Cardiovascular: Denies: HTN, CAD, DC, valve dz, arrhythmia, other Pulmonary: Denies: asthma, COPD, GUTIERREZ, other Gastrointestinal/Genitourinary: Reports: GERD; Denies: CRI, ESRD, other Neurologic/Psychiatric: Reports: other - chronic pain; Denies: dementia, CVA, depression/anxiety, TIA Endocrine: Denies: DM, hypothyroidism, steroids, other HEENT: Denies: cataract (L), cataract (R), glaucoma, [place] (L), [place] (R), other Hematology/Immune: Denies: anemia, DVT, bleeding disorder, other Musculoskeletal/Integumentary: Denies: OA, RA, DJD, DDD, edema, other PMH Narrative: as above PSxH Narrative: Lumbar discectomy Anesthesia Pre-op Phys. Exam Physician Exam Last Vital Signs Date Time Temp Pulse Resp B/P (MAP) Pulse Ox O2 Delivery O2 Flow Rate FiO2 07/22/20 08:55 97.2 46 18 113/74 99 Room Air Constitutional: NAD Neurologic: CN 2-12 intact Cardiovascular: RRR, no M/R/G Respiratory: CTA Gastrointestinal: S/NT/ND Airway Exam Mallampati Score: Class II MO: full Neck: flexible ROM: full Teeth: intact Dentures: no upper, no lower Anesthesia Pre-op A/P Labs see leroy Studies Pre-op Studies: EKG - SR Risk Assessment & Plan Assessment: ASA 2 Plan: GA with LMA Status Change Before Surgery: No Pre-Antibiotics Drug: Ancef 2gr Given Within 1 Hr of Incision: Yes Time Given: 10:56 Yinka Johnson MD Jul 22, 2020 10:39
[2020-07-22] MEDS ORDERED: DiphenhydrAMINE 50mg/ml Inj IVP PRN (10:45)
[2020-07-22] MEDS ORDERED: Meperidine 25mg/0.5ml Inj (FOR RIGORS ONLY) IV PRN (10:45)
[2020-07-22] MEDS ORDERED: LR 1000ml 1,000 ML IVLG SCH (10:45)
[2020-07-22] MEDS ORDERED: Ketorolac 30mg Inj IV PRN (10:45)
[2020-07-22] MEDS ORDERED: NS Irrig 4000ml IRRIG ONE (11:30)
[2020-07-22] MEDS ORDERED: NS 275ml ONE (11:30)
[2020-07-22] MEDS ORDERED: LR 1000ml ONE (11:30)
--- NOTE | 2020-07-22 12:49 | Immediate Post-Op Evaluation ---
Immediate Post-Op Evalulation Immediate Post-Op Evalulation Procedure: R knee arthroscopy, meniscectomy Date of Evaluation: Jul 22, 2020 Time of Evaluation: 12:48 IV Fluids: 800 Blood Products: none4 Estimated Blood Loss: min Urinary Output: none Blood Pressure Systolic: 118 Blood Pressure Diastolic: 76 Pulse Rate: 58 Respiratory Rate: 18 O2 Sat by Pulse Oximetry: 99 Temperature (Fahrenheit): 97.6 Pain Score (1-10): 1 Nausea: No Vomiting: No Complications none Patient Status: awake, patent, none Hydration Status: adequate Yinka Johnson MD Jul 22, 2020 12:49
--- NOTE | 2020-07-22 13:25 | 48 Hour Post Anesthesia Eval ---
Post Anesthesia Evaluation Procedure: R knee arthroscopy, meniscectomy Date of Evaluation: Jul 22, 2020 Time of Evaluation: 13:23 Blood Pressure Systolic: 118 0: 77 Pulse Rate: 62 Respiratory Rate: 18 Temperature (Fahrenheit): 97.6 O2 Sat by Pulse Oximetry: 99 Airway: patent Nausea: No Vomiting: No Pain Intensity: 1 Hydration Status: adequate Cardiopulmonary Status: stable Mental Status/LOC: patient returned to baseline Follow-up Care/Observations: n/a Post-Anesthesia Complications: none Follow-up care needed: ready to discharge Yinka Johnson MD Jul 22, 2020 13:25
[2020-07-22] MEDS ORDERED: D5 1/2NS 1,000 ML IV SCH (15:00)
--- NOTE | 2020-07-22 16:44 | Operative Note - Dictated ---
DATE OF OPERATION: 07/22/2020 PREOPERATIVE DIAGNOSIS: Right knee MCL sprain with secondary internal derangement. POSTOPERATIVE DIAGNOSES: 1. Right knee MCL sprain. 2. Right knee hypertrophic fat pad/ligamentum mucosum. PROCEDURES: 1. Right knee diagnostic arthroscopy. 2. Synovectomy of the medial, lateral, and patellofemoral compartment. SURGEON: Gabo Carroll MD. ANESTHESIA: general. INDICATION FOR PROCEDURE: The patient is a pleasant gentleman, who has had significant direct trauma to the knee. He had evidence of MCL sprain, continued to have anterior knee pain and mechanical symptoms, elected to undergo right knee arthroscopy, possible synovectomy, chondroplasty. Risks, limitations, expectations, and complications were discussed in detail. All questions addressed. DESCRIPTION OF PROCEDURE: After informed consent was obtained, the patient was brought to the operating room. The patient was placed under anesthesia. Right leg was prepped and draped in a sterile manner. Time-out performed. Inferolateral stab incision was then made. Trocar was introduced into the knee joint. Systematic tour of the knee was performed. There was hypertrophic synovial tissue in the patellofemoral compartment. No chondral damage in the patellofemoral compartment. Medial gutter was free from the loose bodies. Medial compartment was entered. Medial working portal was established. The meniscus was probed, noted to be intact. No chondral damage in medial compartment, the ligamentum mucosum as well as fat pad hypertrophic and therefore synovectomy and excision of the ligamentum mucosum was performed to better visualize the ACL and lateral compartment. The ACL was probed, noted to be intact. Lateral compartment was entered, freed from meniscal chondral damage. At this point, the camera was repositioned in the patellofemoral compartment. Excision of the fat pad was completed. At this point, the instruments were removed. Portal sites were closed with 3-0 Monocryl sutures. Steri-Strips and a sterile dressing were applied. ESTIMATED BLOOD LOSS: Minimal. COMPLICATIONS: None. SPECIMENS: None. IMPLANTS: None. Gabo Carroll M.D. DR: KIRTI JOB#: [id number] CC: MELONY
== END 2020-07-22 14:35 | disposition home or self-care (01) ==
LOC: SUR 08:25
DX: S83.411A Sprain of medial collateral ligament of right knee, initial encounter (principal); M79.4 Hypertrophy of (infrapatellar) fat pad; Z88.6 Allergy status to analgesic agent; K21.9 Gastro-esophageal reflux disease without esophagitis; X58.XXXA Exposure to other specified factors, initial encounter; Y92.9 Unspecified place or not applicable
CPT/HCPCS: 29876; 94003; J0690; J1885; J2250; J2704; J3010; J3301; J3490; J7050; J7120; U0002; 94150

== ENCOUNTER 2020-08-09 21:32 | Emergency (ER) | payer OTHER ==
[~2020-08-09] VITALS: Ht 182.9 cm; Wt 81.6 kg
[~2020-08-09 21:32] MED LIST changes: -ceFAZolin 1gm IVPB IVPB ONE; -celeBREX 200mg Cap **SURGERY PATIENTS ONLY ORAL ONE; -oxyCONTIN 20mg tab ORAL ONE
--- NOTE | 2020-08-09 21:45 | NUR ---
ED Nurse Note: Patient walked into the ED from home with crutches with c/o right knee pain. Patient had knee surgery 07/[address] Carroll. Pain is 9/10 and post op site is swollen. No discharge/bleeding noted. Patient denies fever and chills, N&V, CP/SOB/. Patient is AAOx4. Patient is taking oral steroids and pain meds at home.
--- NOTE | 2020-08-09 21:54 | NUR ---
ED Nurse Note: ERMD at bedside
--- NOTE | 2020-08-09 22:09 | Emergency Room Report ---
History of Present Illness General Chief Complaint: Lower Extremity Injury Source: Patient Present Illness HPI Patient is a 39-year-old male presents after increased knee swelling. Reports having increased pain to the left knee. Had gradual onset of swelling. Had recent arthroscopic surgery. Denies any fever. No recent trauma. Denies any calf pain. Had some recent travel but denies any fever or cough. Had not been having any other locations of pain. Denies other symptoms. Allergies: Coded Allergies: CODEINE (Verified Allergy, Intermediate, hives, 12/24/18) Uncoded Allergies: RED MEAT (Adverse Reaction, Unknown, ANAPHYLACTIC SHOCK, 12/25/18) COVID-19 Screening Contact w/high risk pt: No Experienced COVID-19 symptoms?: No COVID-19 Testing performed LIABILITY CLAIMS REPRESENTATIVE: Yes COVID-19 Screening: Negative COVID-19 COVID-19 Testing Source: prior to sx on 07/22 Patient History Past Medical History: see triage record Reviewed Nursing Documentation: PMH: Agreed; PSxH: Agreed Nursing Documentation-PMH Past Medical History: No Stated History Hx Cardiac Problems: No Hx Cancer: No Hx Gastrointestinal Problems: No Hx Neurological Problems: No Review of Systems All Other Systems: negative except mentioned in HPI Physical Exam Vital Signs Date Time Temp Pulse Resp B/P (MAP) Pulse Ox O2 Delivery O2 Flow Rate FiO2 08/09/20 21:33 98.8 88 18 138/90 (106) 99 Room Air Sp02 EP Interpretation: reviewed, normal General Appearance: normal inspection, well appearing, no apparent distress, alert Head: atraumatic ENT: normal ENT inspection, hearing grossly normal, normal voice Neck: normal inspection, full range of motion, supple, no bony tend Respiratory: normal inspection, lungs clear, normal breath sounds, no respiratory distress, no retraction, no wheezing Cardiovascular #1: regular rate, rhythm, no edema Gastrointestinal: normal inspection, normal bowel sounds, non tender, soft, no guarding, no hernia Genitourinary: no CVA tenderness Musculoskeletal: normal inspection, back normal, other - decreased ROM to right knee with effusion Neurologic: alert, oriented x3, responsive, speech normal, normal inspection Psychiatric: normal inspection, judgement/insight normal, mood/affect normal Medical Decision Making Diagnostic Impression: Primary Impression: Synovitis ER Course Patient presented for Right knee pain and swelling. Differential diagnosis include but not limited to septic joint, hemarthrosis, synovitis, gouty arthritis among others. Because of complexity of patient's case laboratory tests were ordered. Patient was noted to have recent orthopedic procedure and had recent ER visit at another hospital where he had a DVT ultrasound performed. Knee appears to be swollen with some effusion. Patient's knee was noted to have limited range of motion. Dr. Evgeny Carroll was contacted and he recommended joint aspiration for possible septic joint. Patient was consented. Patient was explained the risk benefits alternatives of procedure he indicated understanding and all questions were answered. Patient was to proceed with procedure. Patient's knee was aspirated with an 18-gauge needle after sterile prep and drape. Anesthesia with 5 cc of 0.5% Marcaine. Prepped with Betadine. Aspirated approximately 60 cc of initially bloody thin fluid. Patient tolerated this well, estimated blood loss less than 5 cc. Sterile dressing was applied.Patient cell count of synovial fluid showed less than 100,000 nucleated cells. Gram stain showed no organisms. After discussion with Dr. Carroll patient will be discharged home. Patient was to follow-up with Dr. Carroll for recheck. He is to return if worse. This medical record is generated with [employer] roundhouse supervisor software. There may be some roundhouse supervisor discrepancies related to use of this software Labs Test 08/09/20 22:10 08/09/20 23:20 White Blood Count 6.8 K/UL (4.8-10.8) Red Blood Count 4.94 M/UL (4.70-6.10) Hemoglobin 16.3 G/DL (14.2-18.0) Hematocrit 47.5 % (42.0-52.0) Mean Corpuscular Volume 96 FL (80-99) Mean Corpuscular Hemoglobin 32.9 PG (27.0-31.0) Mean Corpuscular Hemoglobin Concent 34.2 G/DL (32.0-36.0) Red Cell Distribution Width 11.6 % (11.6-14.8) Platelet Count 219 K/UL (150-450) Mean Platelet Volume 7.6 FL (6.5-10.1) Neutrophils (%) (Auto) 89.7 % (45.0-75.0) Lymphocytes (%) (Auto) 7.0 % (20.0-45.0) Monocytes (%) (Auto) 2.2 % (1.0-10.0) Eosinophils (%) (Auto) 0.1 % (0.0-3.0) Basophils (%) (Auto) 0.9 % (0.0-2.0) Prothrombin Time 11.4 SEC (9.30-11.50) Prothromb Time International Ratio 1.0 (0.9-1.1) Activated Partial Thromboplast Time 29 SEC (23-33) Sodium Level 135 MMOL/L (136-145) Potassium Level 4.5 MMOL/L (3.5-5.1) Chloride Level 99 MMOL/L (98-107) Carbon Dioxide Level 30 MMOL/L (21-32) Anion Gap 6 mmol/L (5-15) Blood Urea Nitrogen 18 mg/dL (7-18) Creatinine 1.3 MG/DL (0.55-1.30) Estimat Glomerular Filtration Rate > 60 mL/min (>60) Glucose Level 106 MG/DL (74-106) Uric Acid 4.7 MG/DL (2.6-7.2) Calcium Level 9.0 MG/DL (8.5-10.1) Total Bilirubin 0.4 MG/DL (0.2-1.0) Aspartate Amino Transf (AST/SGOT) 52 U/L (15-37) Alanine Aminotransferase (ALT/SGPT) 80 U/L (12-78) Alkaline Phosphatase 98 U/L (46-116) C-Reactive Protein, Quantitative 8.3 mg/dL (0.00-0.90) Total Protein 8.3 G/DL (6.4-8.2) Albumin 3.7 G/DL (3.4-5.0) Globulin 4.6 g/dL Albumin/Globulin Ratio 0.8 (1.0-2.7) Last Vital Signs Date Time Temp Pulse Resp B/P (MAP) Pulse Ox O2 Delivery O2 Flow Rate FiO2 08/09/20 21:33 98.8 88 18 138/90 (106) 99 Room Air Status: improved Disposition: HOME, SELF-CARE Condition: Stable Scripts Hydrocodone Bit/Acetaminophen 5-325* (NORCO 5-325 TABLET*) 1 Each Tablet 1 TAB ORAL Q6H PRN for FOR PAIN, #12 TAB 0 Refills Prov: Narayan Bowman MD 08/10/20 Referrals: Gabo Carroll MD (PCP) Narayan Bowman MD Aug 09, 2020 22:09
[2020-08-09] MEDS ORDERED: Bupivacaine 0.5% Inj 30 ml vial INJ ONE (22:15)
--- NOTE | 2020-08-09 22:16 | NUR ---
ED Nurse Note: Blood sent to lab
[2020-08-09 22:30] LABS: HEMATOCRIT 47.5 % (42.0-52.0); HEMOGLOBIN 16.3 G/DL (14.2-18.0); MEAN CORPUSCULAR VOLUME 96 FL (80-99); PLATELET COUNT 219 K/UL (150-450); RED BLOOD COUNT 4.94 M/UL (4.70-6.10); RED CELL DISTRIBUTION WIDTH 11.6 % (11.6-14.8); WHITE BLOOD COUNT 6.8 K/UL (4.8-10.8)
[2020-08-09 22:31] LABS: NEUTROPHILS % (AUTO) 89.7 % (45.0-75.0)
[2020-08-09 22:32] LABS: BASOPHILS % (AUTO) 0.9 % (0.0-2.0); EOSINOPHILS % (AUTO) 0.1 % (0.0-3.0); MONOCYTES % (AUTO) 2.2 % (1.0-10.0)
[2020-08-09 22:35] LABS: ANION GAP 6 mmol/L (5-15); BLOOD UREA NITROGEN 18 mg/dL (7-18); CARBON DIOXIDE 30 MMOL/L (21-32); CHLORIDE 99 MMOL/L (98-107); CREATININE 1.3 MG/DL (0.55-1.30); POTASSIUM 4.5 MMOL/L (3.5-5.1); SODIUM 135 MMOL/L (136-145)
[2020-08-09 22:39] LABS: ALANINE AMINOTRANSFERASE 80 U/L (12-78); ALBUMIN 3.7 G/DL (3.4-5.0); ALBUMIN/GLOBULIN RATIO 0.8 (1.0-2.7); ALKALINE PHOSPHATASE 98 U/L (46-116); ASPARTATE AMINO TRANSFERASE 52 U/L (15-37); BILIRUBIN,TOTAL 0.4 MG/DL (0.2-1.0)
[2020-08-09] MEDS ORDERED: Morphine Sulfate 4mg/ml Inj (IV USE ONLY) ONE (22:43)
[2020-08-09] MEDS ORDERED: DiphenhydrAMINE 50mg/ml Inj ONE (22:44)
[2020-08-09] MEDS ORDERED: DiphenhydrAMINE 50mg/ml Inj IVP ONE (22:45)
[2020-08-09] MEDS ORDERED: Morphine Sulfate 4mg/ml Inj (IV USE ONLY) IVP ONE (22:45)
--- NOTE | 2020-08-09 23:15 | NUR ---
ED Nurse Note: Right knee aspiration done by ERMD at bedside with consent. Specimen sent to lab for analysis.
[2020-08-10] MEDS ORDERED: Ketorolac 30mg Inj IV ONE (00:30)
[2020-08-10] MEDS ORDERED: NORCO 5-325 TA1 EAC1 ORAL (01:04)
[2020-08-10] MEDS ORDERED: DiphenhydrAMINE 50mg/ml Inj IVP ONE (01:15)
--- NOTE | 2020-08-10 01:27 | NUR ---
ER DISCHARGE NOTE: Patient is cleared to be discharged per ERMD, pt is aox4, on room air, with stable vital signs. pt was given dc and prescription instructions, pt was able to verbalize understanding, pt id band and iv site removed without complications. pt is able to ambulate with crutches and was assisted to private vehicle accompanied by girlfriend. pt took all belongings.
[2020-08-10 01:33] VITALS: BP 138/90
== END 2020-08-10 01:35 | disposition home or self-care (01) ==
LOC: EMR 22:00
DX: M65.9 Synovitis and tenosynovitis, unspecified (principal); Z88.6 Allergy status to analgesic agent; Z91.018 Allergy to other foods
CPT/HCPCS: 10160; 36415; 80053; 84550; 85025; 85610; 85651; 85730; 86140; 87070; 87075; 87205; 89050; 96374; 96375; 96376; J1200; J1885; J2270; S0020; Z7502; 99284

== ENCOUNTER 2020-08-17 21:06 | Emergency (ER) | payer OTHER ==
[~2020-08-17] VITALS: Ht 182.9 cm; Wt 84.8 kg
[~2020-08-17 21:06] MED LIST changes: +NORCO 5-325 TA1 EAC1 ORAL
[2020-08-17 22:50] VITALS: BP 126/77
--- NOTE | 2020-08-17 23:06 | Emergency Room Report ---
History of Present Illness General Chief Complaint: Lower Extremity Injury Source: Patient (Fide Zaidi DO) Present Illness HPI Patient states that a couple months ago he underwent arthroscopy of his knee right knee. He has had recurrent joint effusions since that time. He is being followed by Dr. Carroll in orthopedics. He was sent in by Dr. Carroll because he has pain in his right leg and it is being requested to rule out a DVT. The patient is swelling again in the knee and has severe pain. He is also requesting drainage of the knee. The knee was last drained by Dr. Carroll 1 week ago. He denies fever or chills. He has no other complaints. (Fide Zaidi DO) Allergies: Coded Allergies: CODEINE (Verified Allergy, Intermediate, hives, 12/24/18) Uncoded Allergies: RED MEAT (Adverse Reaction, Unknown, ANAPHYLACTIC SHOCK, 12/25/18) COVID-19 Screening Contact w/high risk pt: No Experienced COVID-19 symptoms?: No COVID-19 Testing performed MANAGER BAR: Yes - 3 weeks ago COVID-19 Screening: Negative COVID-19 COVID-19 Testing Source[place] [facility] [place] (Fide Zaidi DO) Patient History Past Medical History: none, see triage record Past Surgical History: other - Back surgery, arthroscopy Social History: Denies: smoking, alcohol use, drug use Reviewed Nursing Documentation: PMH: Agreed; PSxH: Agreed (Fide Zaidi DO) Nursing Documentation-PMH Past Medical History: No Stated History Hx Cardiac Problems: No Hx Cancer: No Hx Gastrointestinal Problems: No Hx Neurological Problems: No (Fide Zaidi DO) Review of Systems All Other Systems: negative except mentioned in HPI (Fide Zaidi ) Physical Exam Vital Signs Date Time Temp Pulse Resp B/P (MAP) Pulse Ox O2 Delivery O2 Flow Rate FiO2 08/17/20 21:09 98.6 79 20 117/78 (91) 96 Room Air Sp02 EP Interpretation: reviewed, normal General Appearance: no apparent distress, alert, GCS 15, non-toxic Head: normocephalic, atraumatic Eyes: bilateral eye normal inspection ENT: hearing grossly normal, normal voice Neck: normal inspection Respiratory: no respiratory distress, no retraction, no accessory muscle use, speaking full sentences Rectal: deferred Musculoskeletal: back normal, normal range of motion, calf tenderness, gait/station normal, tender, swelling - +joint effusion of R. knee joint. Neurologic: alert, motor strength/tone normal, oriented x3, sensory intact, responsive, speech normal Psychiatric: judgement/insight normal, memory normal, mood/affect normal, no suicidal/homicidal ideation Skin: no rash, normal color (Fide Zaidi DO) Procedures Additional Procedure Procedure Narrative Procedure: Arthrocentesis Indication: Knee effusion Description: I Guido wrap the thigh to the proximal knee. I placed the knee and of 35 degree position with blanket underneath the knee. Area cleaned with Betadine. Local acetic and 1% lidocaine. I did a medial approach with an 18- gauge needle. I aspirated about 75 cc of synovial fluid. Patient tolerated procedure without any problem. No complication. (Rakesh Vargas MD) Medical Decision Making Diagnostic Impression: Primary Impression: Effusion of knee joint right ER Course This patient has a joint effusion of the right knee. This appears to be a postoperative recurrent effusion. There is no evidence of infection based on physical exam. There is no warmth or erythema. The patient underwent aspiration of the joint [address] Carroll of orthopedics. He presents to rule out DVT. Ultrasound of the right lower extremity shows no evidence of DVT. I will have the patient follow-up with Dr. Carroll for treatment of his joint effusion of the right knee. Patient was instructed to use the compression and brace that he already has from Dr. Carroll. No emergency medical conditions identified. This patient is turned over to Dr. Vargas who will do an arthrocentesis as requested by Dr. Carroll. Anticipate follow-up with Dr. Carroll for further evaluation and treatment. (Fide Zaidi DO) ER Course Signed out to me. He presents with effusion of the knee joint with pain. Ultrasound negative for DVT. Will discharge home. (Rakesh Vargas MD) CT/MRI/US Diagnostic Results CT/MRI/US Diagnostic Results : Imaging Test Ordered: RLE US Impression No DVT (Fide Zaidi DO) Last Vital Signs Date Time Temp Pulse Resp B/P (MAP) Pulse Ox O2 Delivery O2 Flow Rate FiO2 08/17/20 21:09 98.6 79 20 117/78 (91) 96 Room Air Status: improved (Fide Zaidi DO) Status: improved (Rakesh Vargas MD) Disposition: HOME, SELF-CARE Condition: Improved Referrals: [facility],REFERRING (PCP) Additional Instructions: Ice pack to the area. Elevate knee. Follow-up with Dr. Carroll as scheduled. Return if symptoms worsen. Fide Zaidi DO Aug 17, 2020 23:06 Rakesh Vargas MD Aug 18, 2020 00:00
--- NOTE | 2020-08-17 23:10 | Diagnostic Imaging Report ---
EXAM: US Duplex Right Lower Extremity Veins CLINICAL HISTORY: DVT TECHNIQUE: Real-time duplex ultrasound scan of the right lower extremity veins integrating B-mode two-dimensional vascular structure, Doppler spectral analysis, color flow Doppler imaging and compression. COMPARISON: No relevant prior studies available. FINDINGS: Deep veins: Unremarkable. No DVT in the visualized common femoral, femoral, proximal deep femoral or popliteal veins. The veins demonstrate normal color flow, are normally compressible, with normal phasic flow and/or augmentation response. Soft tissues: No acute findings. No popliteal cyst. IMPRESSION: No evidence of deep venous thrombosis.
[2020-08-17] MEDS ORDERED: Ketorolac 60mg Inj IM ONE (23:15)
[2020-08-17] MEDS ORDERED: HYDROcodone/Acetamin 5/325 tab ORAL ONE (23:15)
[2020-08-17] MEDS ORDERED: Lidocaine 1% Plain 30 ml INJ ONE ×2 (23:26→23:30)
[2020-08-18] MEDS ORDERED: Morphine Sulfate 10mg/ml Inj IM ONE (00:15)
[2020-08-18 00:34] VITALS: BP 117/78
== END 2020-08-18 00:34 | disposition home or self-care (01) ==
LOC: EMR 21:36
DX: M25.461 Effusion, right knee (principal); Z88.5 Allergy status to narcotic agent; Z91.018 Allergy to other foods
CPT/HCPCS: 20610; 87070; 87205; 93971; 96372; J2001; J2270; Z7502; 99284

== ENCOUNTER 2020-08-19 21:27 | Emergency (ER) | payer OTHER ==
[~2020-08-19] VITALS: Ht 182.9 cm; Wt 84.4 kg
--- NOTE | 2020-08-19 21:35 | NUR ---
ED Nurse Note: Pt ambulated to ED from home c/o R knee swelling s/p surgery on 07/25. Pt was seen 3 days ago for the same reason and had a tap done by [facility]. Pt states that it swelled back up 12 hrs later. reports 10/10 pain unrelieved by pain medication. R knee is visibly swollen, skin is warm to touch, denies fever at home.
--- NOTE | 2020-08-19 22:29 | NUR ---
ED Nurse Note: xray at bedside
[2020-08-19] MEDS ORDERED: fentaNYL 100 mcg/2 mL IV ONE (22:30)
[2020-08-19] MEDS ORDERED: DiphenhydrAMINE 50mg/ml Inj IVP ONE (22:30)
--- NOTE | 2020-08-19 22:41 | Emergency Room Report ---
History of Present Illness General Chief Complaint: Lower Extremity Injury Source: Patient Present Illness HPI Patient is a 39-year-old male status postRight knee diagnostic arthroscopy and Synovectomy of the medial, lateral, and patellofemoral compartment on 07/22/2020 who presents to the ER complaining of right knee swelling. Patient has been seen here on August 09 and again 2 days ago and by his orthopedist and has had his knee effusion drained for same complaint. Patient states that he has pain and swelling. He denies any fever or chills. He denies any nausea or vomiting. He denies any redness to the skin. Latest arthroscopy from 2 days ago demonstrates WBCs with no organisms. Patient has had elevated ESR and CRP. Patient spoke with his orthopedist who said that he needs to come to the emergency room. Patient denies any new trauma.. 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 COVID-19 Screening: Negative COVID-19 COVID-19 [place] [facility] [place] Reviewed Nursing Documentation: PMH: Agreed; PSxH: Agreed Nursing Documentation-PMH Hx Cardiac Problems: No Hx Cancer: No Hx Gastrointestinal Problems: No Hx Neurological Problems: No Review of Systems All Other Systems: negative except mentioned in HPI Physical Exam Vital Signs Date Time Temp Pulse Resp B/P (MAP) Pulse Ox O2 Delivery O2 Flow Rate FiO2 08/19/20 21:31 98.2 88 19 118/78 (91) 98 Room Air Sp02 EP Interpretation: reviewed, normal General Appearance: no apparent distress, alert, GCS 15, non-toxic Head: normocephalic, atraumatic Eyes: bilateral eye normal inspection, bilateral eye PERRL ENT: hearing grossly normal, normal pharynx, no angioedema, normal voice Neck: full range of motion, supple/symm/no masses Respiratory: chest non-tender, lungs clear, normal breath sounds, speaking full sentences Cardiovascular #1: regular rate, rhythm, no edema Gastrointestinal: normal bowel sounds, non tender, soft, non-distended, no guarding, no rebound Rectal: deferred Genitourinary: normal inspection, no CVA tenderness Musculoskeletal: other - Right knee diffuse edema with no erythema and minimal warmth to touch. 2+ pedal pulses. Range of motion limited secondary to swelling and pain but patient able to move his extremity. He is ambulating with a crutch. Neurologic: cost recorder III-XII nml as tested, oriented x3 Psychiatric: no suicidal/homicidal ideation Skin: no rash Medical Decision Making Diagnostic Impression: Primary Impression: Effusion of knee joint right Additional Impression: Synovitis ER Course Upon arrival I spoke with Dr. Simon the patient's orthopedist. We reviewed his arthrocentesis results from 2 days ago. He states that he believes the patient needs a washout. Patient will be preop. Patient states that every time he has had an arthrocentesis performed that the swelling comes back 12 hours later this is occurred the past 3 times. I do not believe that another arthrocentesis is indicated at this time as the 1 from 2 days ago demonstrated no organisms and I believe the risk of constant arthrocentesis would be harmful to the patient as it can introduce infections. Patient has no elevated white blood cell count. Patient's afebrile. Patient had arthrocentesis 2 days which demonstrated no organisms. Will hold on antibiotics. Patient has mildly elevated CRP which is unchanged. 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 Patient admitted for further treatment and evaluation and washout. Laboratory Tests Test 08/19/20 22:15 08/19/20 22:30 White Blood Count 7.8 K/UL (4.8-10.8) Red Blood Count 4.41 M/UL (4.70-6.10) L Hemoglobin 14.6 G/DL (14.2-18.0) Hematocrit 42.1 % (42.0-52.0) Mean Corpuscular Volume 95 FL (80-99) Mean Corpuscular Hemoglobin 33.1 PG (27.0-31.0) H Mean Corpuscular Hemoglobin Concent 34.6 G/DL (32.0-36.0) Red Cell Distribution Width 11.4 % (11.6-14.8) L Platelet Count 232 K/UL (150-450) Mean Platelet Volume 8.4 FL (6.5-10.1) Neutrophils (%) (Auto) 73.3 % (45.0-75.0) Lymphocytes (%) (Auto) 15.7 % (20.0-45.0) L Monocytes (%) (Auto) 8.6 % (1.0-10.0) Eosinophils (%) (Auto) 1.1 % (0.0-3.0) Basophils (%) (Auto) 1.3 % (0.0-2.0) Erythrocyte Sedimentation Rate Pending Prothrombin Time 11.3 SEC (9.30-11.50) Prothrombin Time INR 1.0 (0.9-1.1) Activated Partial Thromboplast Time 29 SEC (23-33) Sodium Level 137 MMOL/L (136-145) Potassium Level 3.5 MMOL/L (3.5-5.1) Chloride Level 100 MMOL/L (98-107) Carbon Dioxide Level 31 MMOL/L (21-32) Anion Gap 6 mmol/L (5-15) Blood Urea Nitrogen 13 mg/dL (7-18) Creatinine 1.1 MG/DL (0.55-1.30) Estimated Glomerular Filtration Rate > 60 mL/min (>60) Glucose Level 85 MG/DL (74-106) Lactic Acid Level 1.50 mmol/L (0.4-2.0) Calcium Level 8.3 MG/DL (8.5-10.1) L Magnesium Level 1.9 MG/DL (1.8-2.4) Total Bilirubin 0.3 MG/DL (0.2-1.0) Aspartate Amino Transferase (AST) 51 U/L (15-37) H Alanine Aminotransferase (ALT) 77 U/L (12-78) Alkaline Phosphatase 94 U/L (46-116) Total Creatine Kinase 109 U/L (26-308) C-Reactive Protein, Quantitative 16.3 mg/dL (0.00-0.90) H Total Protein 6.8 G/DL (6.4-8.2) Albumin 3.0 G/DL (3.4-5.0) L Globulin 3.8 g/dL Albumin/Globulin Ratio 0.8 (1.0-2.7) L Microbiology Date/Time Source Procedure Growth Status 08/19/20 22:30 Nasopharynx SARS-CoV-2 RdRp Gene Assay - Final Complete EKG Diagnostic Results Troponin ordered: No - EKG ordered for preop EKG Time: 22:22 EP Interpretation: Chana Shane MD Rate: normal Rhythm: NSR - [address] Segments: no acute changes ASA given to the pt in ED: No Chest X-Ray Diagnostic Results Chest X-Ray Diagnostic Results : Chest X-Ray Ordered: Yes # of Views/Limited/Complete: 1 View Indication: Other - Preop EP Interpretation: Yes Interpretation: no consolidation, no effusion, no pneumothorax, no acute cardiopulmonary disease Impression: No acute disease Electronically Signed by: Chana Shane MD Last Vital Signs Date Time Temp Pulse Resp B/P (MAP) Pulse Ox O2 Delivery O2 Flow Rate FiO2 08/19/20 21:31 98.2 88 19 118/78 (91) 98 Room Air Disposition: ADMITTED INPATIENT Condition: Critical Physician Consult: Dr. Austin at 1155 am Referrals: Gabo Carroll MD (PCP) Additional Instructions: Please note that this report is being documented using [employer] technology. This can lead to erroneous entry secondary to incorrect interpretation by the dictating instrument. Chnaa Shane M.D. Aug 19, 2020 22:41
--- NOTE | 2020-08-19 22:51 | Diagnostic Imaging Report ---
EXAM: XR Chest, 1 View CLINICAL HISTORY: PREOP TECHNIQUE: Frontal view of the chest. COMPARISON: No relevant prior studies available. FINDINGS: Lungs: Unremarkable. No consolidation. Pleural space: Unremarkable. No pneumothorax. Heart: Unremarkable. No cardiomegaly. Mediastinum: 2.5 cm partially calcified nodule overlying the right hilar region. Otherwise unremarkable. Bones/joints: Unremarkable. IMPRESSION: 1. No acute cardiopulmonary disease. 2. 2.5 cm partially calcified right hilar nodule.
--- NOTE | 2020-08-19 22:55 | NUR ---
ED Nurse Note: US at bedside
[2020-08-19 23:00] VITALS: BP 121/81
[2020-08-19 23:04] LABS: BASOPHILS % (AUTO) 1.3 % (0.0-2.0); EOSINOPHILS % (AUTO) 1.1 % (0.0-3.0); HEMATOCRIT 42.1 % (42.0-52.0); HEMOGLOBIN 14.6 G/DL (14.2-18.0); LYMPHOCYTES % (AUTO) 15.7 % (20.0-45.0); MEAN CORPUSCULAR VOLUME 95 FL (80-99); MONOCYTES % (AUTO) 8.6 % (1.0-10.0); NEUTROPHILS % (AUTO) 73.3 % (45.0-75.0); PLATELET COUNT 232 K/UL (150-450); RED BLOOD COUNT 4.41 M/UL (4.70-6.10); RED CELL DISTRIBUTION WIDTH 11.4 % (11.6-14.8); WHITE BLOOD COUNT 7.8 K/UL (4.8-10.8)
[2020-08-19 23:13] LABS: ANION GAP 6 mmol/L (5-15); BLOOD UREA NITROGEN 13 mg/dL (7-18); CALCIUM 8.3 MG/DL (8.5-10.1); CARBON DIOXIDE 31 MMOL/L (21-32); CHLORIDE 100 MMOL/L (98-107); CREATININE 1.1 MG/DL (0.55-1.30); POTASSIUM 3.5 MMOL/L (3.5-5.1); SODIUM 137 MMOL/L (136-145)
[2020-08-19 23:17] LABS: ALANINE AMINOTRANSFERASE 77 U/L (12-78); ALBUMIN/GLOBULIN RATIO 0.8 (1.0-2.7); ALKALINE PHOSPHATASE 94 U/L (46-116); ASPARTATE AMINO TRANSFERASE 51 U/L (15-37); BILIRUBIN,TOTAL 0.3 MG/DL (0.2-1.0); CREATINE KINASE 109 U/L (26-308)
[2020-08-19] MEDS ORDERED: Ketorolac 30mg Inj IV ONE (23:30)
--- NOTE | 2020-08-19 23:30 | NUR ---
ED Nurse Note: Pt resting in bed with eyes closed, non-labored breathing. IV fluids infusing per order. will continue to monitor.
--- NOTE | 2020-08-19 23:43 | Diagnostic Imaging Report ---
EXAM: US Duplex Right Lower Extremity Veins CLINICAL HISTORY: PAIN TECHNIQUE: Real-time duplex ultrasound scan of the right lower extremity veins integrating B-mode two-dimensional vascular structure, Doppler spectral analysis, color flow Doppler imaging and compression. COMPARISON: No relevant prior studies available. FINDINGS: Deep veins: Unremarkable. No DVT in the visualized common femoral, femoral, proximal deep femoral or popliteal veins. The veins demonstrate normal color flow, are normally compressible, with normal phasic flow and/or augmentation response. Superficial veins: Unremarkable. No thrombus in the visualized great saphenous vein. Soft tissues: No acute findings. No popliteal cyst. Other findings: Cystic structure within the right popliteal fossa, measuring up to 4.7 cm. Internal debris is present. IMPRESSION: 1. No deep venous thrombosis. 2. 4.7 cm popliteal fossa cyst.
[2020-08-20 01:00] VITALS: BP 121/70
--- NOTE | 2020-08-20 01:30 | NUR ---
AMA: SEE AMA FORM.
[2020-08-20] MEDS ORDERED: TRAMADOL HCL50 MG ORAL (12:59)
--- NOTE | 2020-08-21 13:13 | NUR ---
CASE MANAGEMENT: Faxed clinical info (face sheet / ER MD notes / lab and imaging reports) to [employer] @ [phone] / [phone].
== END 2020-08-20 01:24 | disposition left against medical advice (07) ==
LOC: EMR 21:49 → UNDOADMIN 23:15 → 3E 23:15 → EDBEDREQ 08-20 00:45 → EMR 08-20 01:24 → UNDODISIN 08-20 01:30
DX: M65.9 Synovitis and tenosynovitis, unspecified (principal); M25.461 Effusion, right knee; Z88.6 Allergy status to analgesic agent; Z91.018 Allergy to other foods; Z98.890 Other specified postprocedural states; R91.1 Solitary pulmonary nodule
CPT/HCPCS: 36415; 71045; 80053; 82550; 83605; 83735; 85025; 85610; 85651; 85730; 86140; 86850; 86900; 86901; 87040; 93005; 93971; 96361; 96374; 96375; J1200; J1885; J2405; J3010; U0002; Z7502; 99285

== ENCOUNTER 2020-08-20 11:17 | Inpatient (IN) | payer OTHER ==
[2020-08-20] VITALS (12 sets, daily range): BP systolic 107–137; BP diastolic 65–104
[~2020-08-20] VITALS: Ht 182.9 cm; Wt 84.7 kg
--- NOTE | 2020-08-20 11:24 | Emergency Room Report ---
History of Present Illness General Chief Complaint: Knee swelling Source: Patient Present Illness HPI Disclaimer: Please note that this report is being documented using [employer] technology. This can lead to erroneous entry secondary to incorrect interpretation by the dictating instrument. HPI: 39-year-old male with recent right knee arthroscopy and synovectomy on 07/22/2020 presents to the ED complaining of right knee swelling. Seen in the emergency department multiple times with recurrent right knee effusion. Recent arthrocentesis have shown increased white cells but no organisms. Patient presents for admission and knee washout by his surgeon, Dr. Carroll. Denies new injury. No other symptoms reported. PMH: Reviewed PSH: Arthroscopic synovectomy Allergies: Reviewed Social Hx: Reviewed Allergies: Coded Allergies: CODEINE (Verified Allergy, Intermediate, hives, 12/24/18) Uncoded Allergies: RED MEAT (Adverse Reaction, Unknown, ANAPHYLACTIC SHOCK, 12/25/18) COVID-19 Screening Contact w/high risk pt: No Experienced COVID-19 symptoms?: No Nursing Documentation-PMH Hx Cardiac Problems: No Hx Cancer: No Hx Gastrointestinal Problems: No Hx Neurological Problems: No Review of Systems All Other Systems: negative except mentioned in HPI Physical Exam Vital Signs Date Time Temp Pulse Resp B/P (MAP) Pulse Ox O2 Delivery O2 Flow Rate FiO2 08/20/20 11:29 99.1 78 22 124/84 (97) 95 Room Air General: Awake and alert, no acute distress HEENT: NC/AT. EOMI. Resp: Normal work of breathing Skin: Intact. No abrasions, laceration or rash over the exposed skin MSK: Normal tone and bulk. Moving all extremities. Swelling over the right knee more centered around the medial aspect. Kept an Guido bandage. No significant overlying cellulitis warmth or bleeding or discharge. Ambulating with the use of the crutches. Neuro: Awake and alert. Mentating appropriately Medical Decision Making Diagnostic Impression: Primary Impression: Effusion of knee joint right ER Course 39-year-old male presents for evaluation of right knee effusion. Recent arthrocentesis shows increased white cells but no organisms. His surgeon, Dr. Carroll will take him for knee washout today. Labs obtained last night show normal white count of 7.8, hemoglobin 14.6 chemistry within normal limits coag studies with INR 1.0 Covid from last night was negative. Patient be kept n.p.o. and transferred to the OR once it is ready. He will be admitted to panel physician, Dr. Gatito Nieves 08/19/20 22:15 08/19/20 22:30 White Blood Count 7.8 K/UL (4.8-10.8) Red Blood Count 4.41 M/UL (4.70-6.10) L Hemoglobin 14.6 G/DL (14.2-18.0) Hematocrit 42.1 % (42.0-52.0) Mean Corpuscular Volume 95 FL (80-99) Mean Corpuscular Hemoglobin 33.1 PG (27.0-31.0) H Mean Corpuscular Hemoglobin Concent 34.6 G/DL (32.0-36.0) Red Cell Distribution Width 11.4 % (11.6-14.8) L Platelet Count 232 K/UL (150-450) Mean Platelet Volume 8.4 FL (6.5-10.1) Neutrophils (%) (Auto) 73.3 % (45.0-75.0) Lymphocytes (%) (Auto) 15.7 % (20.0-45.0) L Monocytes (%) (Auto) 8.6 % (1.0-10.0) Eosinophils (%) (Auto) 1.1 % (0.0-3.0) Basophils (%) (Auto) 1.3 % (0.0-2.0) Erythrocyte Sedimentation Rate Pending Prothrombin Time 11.3 SEC (9.30-11.50) Prothrombin Time INR 1.0 (0.9-1.1) Activated Partial Thromboplast Time 29 SEC (23-33) Sodium Level 137 MMOL/L (136-145) Potassium Level 3.5 MMOL/L (3.5-5.1) Chloride Level 100 MMOL/L (98-107) Carbon Dioxide Level 31 MMOL/L (21-32) Anion Gap 6 mmol/L (5-15) Blood Urea Nitrogen 13 mg/dL (7-18) Creatinine 1.1 MG/DL (0.55-1.30) Estimated Glomerular Filtration Rate > 60 mL/min (>60) Glucose Level 85 MG/DL (74-106) Lactic Acid Level 1.50 mmol/L (0.4-2.0) Calcium Level 8.3 MG/DL (8.5-10.1) L Magnesium Level 1.9 MG/DL (1.8-2.4) Total Bilirubin 0.3 MG/DL (0.2-1.0) Aspartate Amino Transferase (AST) 51 U/L (15-37) H Alanine Aminotransferase (ALT) 77 U/L (12-78) Alkaline Phosphatase 94 U/L (46-116) Total Creatine Kinase 109 U/L (26-308) C-Reactive Protein, Quantitative 16.3 mg/dL (0.00-0.90) H Total Protein 6.8 G/DL (6.4-8.2) Albumin 3.0 G/DL (3.4-5.0) L Globulin 3.8 g/dL Albumin/Globulin Ratio 0.8 (1.0-2.7) L Microbiology Date/Time Source Procedure Growth Status 08/19/20 22:30 Nasopharynx SARS-CoV-2 RdRp Gene Assay - Final Complete Disposition: ADMITTED INPATIENT Condition: Stable Jalen Jacome MD Aug 20, 2020 11:24
[2020-08-20] MEDS ORDERED: Morphine Sulfate 4mg/ml Inj (IV USE ONLY) IVP ONE (11:45)
[2020-08-20] MEDS ORDERED: TRAMADOL HCL50 MG ORAL (12:59)
[2020-08-20] MEDS ORDERED: DiphenhydrAMINE 50mg/ml Inj IVP ONE (13:45)
[2020-08-20] MEDS ORDERED: Lidocaine 1% 10mg/ml/EPI 0.01mg/ml 30ml INJ ONE (13:52)
[2020-08-20] MEDS ORDERED: Kenalog-40 1ml Vial ONE (13:52)
[2020-08-20] MEDS ORDERED: Bupivacaine 0.25% Inj 30ml INJ ONE (13:52)
[2020-08-20] MEDS ORDERED: Ketorolac 30mg Inj ONE (13:52)
[2020-08-20] MEDS ORDERED: NeoSporin Gu Irrig 1ml Amp IRRIG ONE (13:53)
[2020-08-20] MEDS ORDERED: Bacitracin 50000 Units Vial ONE (13:53)
[2020-08-20] MEDS ORDERED: LR 1000ml ONE (14:00)
[2020-08-20] MEDS ORDERED: Sodium Chloride 10ml vial INJ ONE (14:12)
[2020-08-20] MEDS ORDERED: Lidocaine 1% MPF 10mg/ml 5ml ONE (14:12)
[2020-08-20] MEDS ORDERED: fentaNYL 100 mcg/2 mL IV ONE (14:15)
--- NOTE | 2020-08-20 14:15 | Pre-Procedure Note/Attestation ---
Pre-Procedure Note/Attestation Complete Prior to Procedure Planned Procedure: right Procedure Narrative: arthroscopic knee incision and drainage Indications for Procedure Pre-Operative Diagnosis: right knee septic joint Attestation I attest that I discussed the nature of the procedure; its benefits; risks and complications; and alternatives (and the risks and benefits of such alternatives ), prior to the procedure, with the patient (or the patient's legal inventory representative). I attest that, if there was a reasonable possibility of needing a blood transfusion, the patient (or the patient's legal inventory representative) was given the [facility] standardized written summary, pursuant to the Alexandre Goodridge Blood Safety Act ([place] Health and Safety Code # 1645, as amended). I attest that I re-evaluated the patient just prior to the surgery and that there has been no change in the patient's H&P, except as documented below: Gabo Carroll MD Aug 20, 2020 14:15
--- NOTE | 2020-08-20 14:16 | Operative Note - PDOC ---
Operative Note Operative Note Pre-op Diagnosis: right knee septic joint Procedure: see op report Post-op Diagnosis: same as pre-op plus Operative Findings: consistent w/pre-op dx studies Anesthesia: MAC Specimen: none Complications: none Condition: stable Estimated Blood Loss: none Implant(s) used?: No Gabo Carroll MD Aug 20, 2020 14:16
--- NOTE | 2020-08-20 14:24 | Anethesia Preoperative Eval ---
Anesthesia Pre-op PMH/ROS General Date of Evaluation: Aug 20, 2020 Time of Evaluation: 13:51 Anesthesiologist: Russell ASA Score: ASA 2 - Emergency Mallampati Score Class I : Soft palate, uvula, fauces, pillars visible Class II: Soft palate, uvula, fauces visible Class III: Soft palate, base of uvula visible Class IV: Only hard plate visible Mallampati Classification: Class I Surgeon: Carroll Diagnosis: R Knee Cellulitis Surgical Procedure: R Knee I&D Anesthesia History: none Family History: no anesthesia problems Allergies: Coded Allergies: CODEINE (Verified Allergy, Intermediate, hives, 12/24/18) Uncoded Allergies: RED MEAT (Adverse Reaction, Unknown, ANAPHYLACTIC SHOCK, 12/25/18) Medications: see eMAR Patient NPO?: Yes Past Medical History PSxH Narrative: Back SX Anesthesia Pre-op Phys. Exam Physician Exam Last Vital Signs Date Time Temp Pulse Resp B/P (MAP) Pulse Ox O2 Delivery O2 Flow Rate FiO2 08/20/20 12:27 99.1 08/20/20 12:17 22 124/84 95 Room Air 08/20/20 11:29 78 Constitutional: NAD Neurologic: CN 2-12 intact Cardiovascular: RRR Respiratory: CTA Gastrointestinal: S/NT/ND Airway Exam Mallampati Score: Class I MO: full ROM: full Teeth: missing, intact Anesthesia Pre-op A/P Risk Assessment & Plan Assessment: ASA 2E Plan: GA, SED Status Change Before Surgery: No Pre-Antibiotics Dru Grams Ancef IV Given Within 1 Hr of Incision: Yes Time Given: 14:31 Moshe Wells MD Aug 20, 2020 14:24
[2020-08-20] MEDS ORDERED: Metoclopramide 10mg/2ml Inj IVP PRN (14:30)
[2020-08-20] MEDS ORDERED: Midazolam 2mg/2ml Inj IVP PRN (14:30)
[2020-08-20] MEDS ORDERED: fentaNYL 100 mcg/2 mL IV PRN (14:30)
[2020-08-20] MEDS ORDERED: Ketorolac 30mg Inj IV PRN ×2 (14:30)
[2020-08-20] MEDS ORDERED: Hydromorphone 0.5mg/0.5ml inj SUBQ PRN (14:30)
[2020-08-20] MEDS ORDERED: Labetalol 5mg/ml 20ml vial IV PRN (14:30)
[2020-08-20] MEDS ORDERED: Atropine Sulfate 0.4mg/ml inj IVP PRN (14:30)
[2020-08-20] MEDS ORDERED: DiphenhydrAMINE 50mg/ml Inj IVP PRN (14:30)
[2020-08-20] MEDS ORDERED: LR 1000ml 1,000 ML IVLG SCH (14:30)
[2020-08-20] MEDS ORDERED: Meperidine 25mg/1ml Inj (FOR RIGORS ONLY) IV PRN (14:30)
[2020-08-20] MEDS ORDERED: LORazepam Inj 2mg/ml 1ml IV PRN (14:30)
--- NOTE | 2020-08-20 14:34 | 48 Hour Post Anesthesia Eval ---
Post Anesthesia Evaluation Procedure: R Knee Arthroscopy, I&D Date of Evaluation: Aug 20, 2020 Time of Evaluation: 17:46 Blood Pressure Systolic: 123 0: 72 Pulse Rate: 64 Respiratory Rate: 18 Temperature (Fahrenheit): 98 O2 Sat by Pulse Oximetry: 100 Airway: patent Nausea: No Vomiting: No Pain Intensity: 2 Hydration Status: adequate Cardiopulmonary Status: Stable Mental Status/LOC: patient returned to baseline Follow-up Care/Observations: 0 Post-Anesthesia Complications: 0 Follow-up care needed: N/A Moshe Wells MD Aug 20, 2020 14:34
--- NOTE | 2020-08-20 14:34 | Immediate Post-Op Evaluation ---
Immediate Post-Op Evalulation Immediate Post-Op Evalulation Procedure: R Knee Arthroscopy, I&D Date of Evaluation: Aug 20, 2020 Time of Evaluation: 15:40 IV Fluids: 800 LR Blood Products: 0 Estimated Blood Loss: 25 Urinary Output: 0 Blood Pressure Systolic: 127 Blood Pressure Diastolic: 104 Pulse Rate: 88 Respiratory Rate: 16 O2 Sat by Pulse Oximetry: 100 Temperature (Fahrenheit): 97.4 Pain Score (1-10): 2 Nausea: No Vomiting: No Complications 0 Patient Status: awake, reacts, patent, extubated, none Hydration Status: adequate Dru Grams Ancef IV Given Within 1 Hr of Incision: Yes Time Given: 14:31 Moshe Wells MD Aug 20, 2020 14:34
[2020-08-20] MEDS ORDERED: Acetaminophen (Non formulary) 100 ML IV ONE (15:00)
[2020-08-20] MEDS ORDERED: NS Irrig 4000ml IRRIG ONE (15:35)
[2020-08-20] MEDS: HYDROmorphone 1mg/ml Carpuject SUBQ PRN ×2 (17:31→21:41)
[2020-08-20] MEDS: Docusate 100mg cap ORAL SCH (17:36)
--- NOTE | 2020-08-20 18:30 | Consultation ---
DATE OF CONSULTATION: 08/20/2020 CHIEF COMPLAINT: Right knee pain. HISTORY OF PRESENT ILLNESS: The patient has had recurrent effusions, subsequently had a tap approximately 48 hours ago, which did not grow back anything, however, had significant wbc's. The patient had a recurrent effusion and pain. Given his recurrent effusions, it was felt that the patient may have a septic joint; and therefore, he was contacted to come back into the hospital to undergo incision and drainage. PAST MEDICAL HISTORY: Per intake chart. SURGICAL HISTORY: Per intake chart. MEDICATIONS: Per intake chart. ASSESSMENT: Right knee possible septic joint. DISCUSSION: At this point, his clinical course is concerning for recurrent effusions. He has had several taps. The most recent one did show elevated wbc's. Interestingly enough, none of the cultures are growing back anything. However, clinically, it behaves like a septic joint. Therefore, I think it is reasonable to consider incision and drainage. We will obtain an infectious disease consult postop. We will maintain him on vancomycin postoperatively. We are going to send off STD titers to see if this may be either gonorrhea or syphilis. Gabo Carroll M.D. DR: MAREK JOB#: [id number] CC:
[2020-08-20] MEDS ORDERED: Vancomycin 1.5 GM in NS 275 ML IVPB ONE (20:00)
[2020-08-20] MEDS: HYDROcodone/Acetamin 5/325 tab ORAL PRN (20:09)
[2020-08-20] MEDS: DiphenhydrAMINE 50mg/ml Inj IVP PRN (20:09)
--- NOTE | 2020-08-20 21:00 | Operative Note - Dictated ---
DATE OF OPERATION: 08/20/2020 PREOPERATIVE DIAGNOSIS: Right knee septic joint. POSTOPERATIVE DIAGNOSIS: Right knee septic joint. PROCEDURE: 1. Right knee arthroscopy and synovectomy, medial and lateral patellofemoral compartment. 2. Irrigation and debridement, right knee, 18 liters. SURGEON: Gbao Carroll M.D. ANESTHESIA: MAC. INDICATION FOR PROCEDURE: The patient is a pleasant gentleman who has had right knee arthroscopic procedure, subsequently developed recurrent effusions. There was concern that he may have a septic joint; therefore, elected to undergo right knee arthroscopy, synovectomy, and irrigation and debridement. He understood that he may require additional surgery if the infection is not cleared. He also understands the risk of further infection. DESCRIPTION OF PROCEDURE: After informed consent was obtained, the patient was brought to the operating room. The patient was placed under general anesthesia. Right knee was prepped and draped in a sterile manner. At this point, 18-gauge needle was then placed into the pouch and 40 mL of cloudy fluid was aspirated. At this point, the previous arthrotomy site was marked out. Camera was placed in the patellofemoral compartment. Complete synovectomy was performed. At this point, a combination of synovectomy of the medial compartment, intercondylar notch, lateral compartment, and patellofemoral compartment was performed along with irrigation and debridement with 12 liters. Once irrigation and debridement was completed, systematic tour of the knee was performed. Medial compartment was entered, no meniscal chondral damage. The ACL was intact. Lateral compartment was free of any meniscal chondral damage. At this point, complete synovectomy was confirmed again. At this point, the instruments were removed. Portal sites were closed with 3-0 Monocryl sutures. Steri-Strips and a sterile dressing were applied. ESTIMATED BLOOD LOSS: None. COMPLICATIONS: None. SPECIMENS: Right knee aspirate. Gabo Carroll M.D. DR: CALVIN JOB#: [id number] CC: MELONY
[2020-08-20] MEDS ORDERED: Albuterol 90mcg Inhaler 8gm INH PRN (23:30)
[2020-08-21] VITALS: BP 129/83
--- NOTE | 2020-08-21 02:30 | History and Physical Report ---
DATE OF ADMISSION: 08/20/2020 This is a 39-year-old male who came to the emergency room for having infected right knee. The patient had 2 surgeries about couple of years ago and also had a back surgery. The patient had irrigation of right knee joint and doing okay. He is still complaining of pain, has mild shortness of breath. The patient claims he has been smoking marijuana. PAST MEDICAL HISTORY: Back pain and knee surgery. ALLERGIES: NKA. MEDICATIONS: He is taking Tylenol, Flexeril, gabapentin, meloxicam, tramadol. PHYSICAL EXAMINATION: GENERAL: This is a male, currently comfortable in the bed. VITAL SIGNS: Blood pressure is 107/66, pulse 64, respirations 16, temperature 99.2. HEENT: AT/NC. EOMI, JACI. NECK: Supple. No JVD. CHEST: Bilateral decreased breath sounds. CARDIOVASCULAR: Regular rhythm. ABDOMEN: Soft. EXTREMITIES: Right knee swelling and mild tenderness on palpation. GENITOURINARY: Deferred. LABORATORY DATA: Pending. ASSESSMENT AND PLAN: Right knee infection, status post debridement, surgery, and irrigation. Continue antibiotic. Continue pain medication. Added Benadryl and DuoNeb. Evgeny Mederos M.D. DR: MAREK JOB#: [id number] CC:
[2020-08-21] MEDS: DiphenhydrAMINE 50mg/ml Inj IVP PRN ×3 (02:45→21:40)
[2020-08-21] MEDS: HYDROmorphone 1mg/ml Carpuject SUBQ PRN (02:45)
[2020-08-21 04:00] VITALS: BP 121/73
[2020-08-21] MEDS: HYDROcodone/Acetamin 5/325 tab ORAL PRN ×2 (04:05→14:15)
[2020-08-21 08:00] VITALS: BP 124/73
[2020-08-21] MEDS: Vancomycin 1gm/D5W 275ml IVPB SCH ×4 (08:28→20:51)
[2020-08-21] MEDS: Docusate 100mg cap ORAL SCH ×3 (08:29→18:18)
[2020-08-21] MEDS: HYDROmorphone 1mg/ml Carpuject IVP PRN ×2 (11:13→21:40)
--- NOTE | 2020-08-21 11:41 | General Progress Note ---
Subjective Date patient seen: Aug 21, 2020 Constitutional: Reports: no symptoms HEENT: Reports: no symptoms Cardiovascular: Reports: no symptoms Respiratory: Reports: wheezing Gastrointestinal/Abdominal: Reports: no symptoms Genitourinary: Reports: no symptoms Neurologic/Psychiatric: Reports: no symptoms Endocrine: Reports: no symptoms Hematologic/Lymphatic: Reports: no symptoms, anemia, easy bleeding, easy bruising, other Allergies: Coded Allergies: CODEINE (Verified Allergy, Intermediate, hives, 12/24/18) Uncoded Allergies: RED MEAT (Adverse Reaction, Unknown, ANAPHYLACTIC SHOCK, 12/25/18) Objective Last 24 Hour Vital Signs Date Time Temp Pulse Resp B/P (MAP) Pulse Ox O2 Delivery O2 Flow Rate FiO2 08/21/20 08:00 98.3 68 18 124/73 (90) 96 08/21/20 04:00 97.6 63 18 121/73 (89) 96 08/21/20 00:00 97.9 67 18 129/83 (98) 95 08/20/20 21:00 Room Air 08/20/20 20:00 97.5 68 17 131/75 (93) 98 08/20/20 18:10 99.2 64 16 107/66 (80) 98 08/20/20 17:19 Room Air 08/20/20 17:10 97.4 61 20 121/77 (92) 99 08/20/20 16:40 98.2 70 20 120/70 (87) 96 08/20/20 16:38 97.5 08/20/20 16:25 97.5 71 20 124/65 99 Room Air 08/20/20 16:10 67 16 122/71 99 Room Air 08/20/20 15:55 66 12 119/73 100 Simple Mask 6 08/20/20 15:45 65 12 120/73 100 Simple Mask 6 08/20/20 15:35 67 16 124/76 100 Simple Mask 6 08/20/20 15:30 68 13 117/74 100 Simple Mask 6 08/20/20 15:25 64 18 100 08/20/20 15:24 97.4 76 15 137/104 100 Simple Mask 6 08/20/20 14:00 99.1 84 21 126/86 99 Room Air 08/20/20 12:27 99.1 08/20/20 12:17 99.1 22 124/84 95 Room Air Intake and Output 08/20/20 08/21/20 19:00 07:00 Intake Total 1600 ml 700 ml Output Total 425 ml 1200 ml Balance 1175 ml -500 ml Intake Oral 600 ml 700 ml IV Total 1000 ml Output Urine Total 400 ml 1200 ml Estimated Blood Loss 25 ml # Voids 4 Laboratory Tests 08/20/20 14:32: Miscellaneous Test [Pending] Height (Feet): 6 Height (Inches): 0.00 Weight (Pounds): 185 Assessment/Plan Status: stable Assessment/Plan: 1 infected knee 2 sob [address] loco is on the case id eval cont abx cont pt/ot Alvin Mederos MD Aug 21, 2020 11:41
[2020-08-21 11:48] VITALS: BP 123/67
[2020-08-21 16:00] VITALS: BP 121/72
[2020-08-21] MEDS: Ketorolac 30mg Inj IV SCH (18:18)
[2020-08-21 20:00] VITALS: BP 115/69
[2020-08-22] MEDS: Ketorolac 30mg Inj IV SCH ×2 (01:28→08:34)
[2020-08-22 04:00] VITALS: BP 109/54
[2020-08-22 07:33] LABS: ANION GAP 5 mmol/L (5-15); BLOOD UREA NITROGEN 13 mg/dL (7-18); CALCIUM 8.5 MG/DL (8.5-10.1); CARBON DIOXIDE 32 MMOL/L (21-32); CHLORIDE 104 MMOL/L (98-107); CREATININE 1.2 MG/DL (0.55-1.30); SODIUM 141 MMOL/L (136-145)
[2020-08-22 07:52] LABS: EOSINOPHILS % (AUTO) 1.5 % (0.0-3.0); HEMATOCRIT 37.4 % (42.0-52.0); HEMOGLOBIN 13.2 G/DL (14.2-18.0); LYMPHOCYTES % (AUTO) 24.5 % (20.0-45.0); MEAN CORPUSCULAR VOLUME 94 FL (80-99); MONOCYTES % (AUTO) 11.9 % (1.0-10.0); NEUTROPHILS % (AUTO) 61.1 % (45.0-75.0); PLATELET COUNT 200 K/UL (150-450); RED BLOOD COUNT 3.97 M/UL (4.70-6.10); RED CELL DISTRIBUTION WIDTH 11.4 % (11.6-14.8); WHITE BLOOD COUNT 5.1 K/UL (4.8-10.8)
[2020-08-22] MEDS: Vancomycin 1gm/D5W 275ml IVPB SCH ×2 (08:21)
[2020-08-22] MEDS: Docusate 100mg cap ORAL SCH ×3 (08:33→16:51)
[2020-08-22] MEDS: HYDROcodone/Acetamin 5/325 tab ORAL PRN ×2 (10:35→19:59)
[2020-08-22 12:00] VITALS: BP 120/71
--- NOTE | 2020-08-22 12:00 | Consultation ---
DATE OF CONSULTATION: 08/22/2020 INFECTIOUS DISEASES CONSULTATION CONSULTING PHYSICIAN: Cheryl Guerra MD. REFERRING PHYSICIAN: Evgeny Mederos MD. REASON FOR CONSULTATION: Right knee infection. HISTORY OF PRESENTING ILLNESS: This is a 39-year-old gentleman, who had a fall from the stairs and had injury to the right knee that subsequently got infected. Now, he comes in with pain. He underwent irrigation of the right knee joint and an Infectious Diseases consultation has been obtained for antibiotics. He underwent right knee arthroscopy, synovectomy, irrigation and debridement. PAST MEDICAL HISTORY: He had a fall from the stairs and subsequently underwent surgery. SOCIAL HISTORY: He smokes marijuana. He drinks alcohol. No history of smoking cigarettes. FAMILY HISTORY: Noncontributory. REVIEW OF SYSTEMS: RESPIRATORY: No fever, chills, cough, shortness of breath or chest pain. CARDIAC: No chest pain. No palpitation. No dizziness. No syncope. GASTROINTESTINAL: No nausea. No vomiting. No abdominal pain. No diarrhea. MUSCULOSKELETAL: He complains of right knee pain. MEDICATIONS: As an inpatient, he is on Restoril, Dilaudid, IV vancomycin, albuterol, Benadryl, docusate, Zofran, [place], Dilaudid. ALLERGIES: 1. Codeine. 2. Red meat. PHYSICAL EXAMINATION: VITAL SIGNS: Temperature of 98, T-max of 99.2, pulse of 60, respiratory rate 19, blood pressure 109/54, O2 saturation of 96%. HEENT: Pupils equally reactive to light and accommodation. Mouth appears clean without thrush. NECK: Supple. No adenopathy. No JVD. CARDIOVASCULAR: Regular rate and rhythm. No murmurs. LUNGS: Clear to auscultation bilaterally. No crackles. No wheezes. ABDOMEN: Soft, nontender. No organomegaly EXTREMITIES: No cyanosis, no clubbing, no edema. Right leg is in dressing. LABORATORY AND DIAGNOSTIC DATA: White count 5.9, hemoglobin 13.2, hematocrit 37.4, MCV 94, platelet count of 200, neutrophils of 61%. Sodium 141, potassium 4, chloride 104, bicarb 32, BUN 13, creatinine 1.2, glucose 88, calcium 8.5. RPR pending. Right knee cultures are negative. A 08/19/2020 chest x-ray was unremarkable. ASSESSMENT: This is a 39-year-old gentleman, who sustained a fall and subsequently had a right knee infection and now has, 1. Right knee septic arthritis. He has undergone arthroscopy with synovectomy and debridement. Cultures are pending. 2. Status post fall down a flight of stairs. PLAN: 1. Continue IV vancomycin for now. 2. We will follow up cultures and adjust antibiotics accordingly I would like to thank, Dr. Mederos for this consultation. Cheryl Guerra M.D. DR: CALLY JOB#: [id number] CC: Evgeny Mederos MD.; Fax#: [phone]
[2020-08-22 16:00] VITALS: BP 123/77
[2020-08-22] MEDS: DiphenhydrAMINE 50mg/ml Inj IVP PRN ×2 (16:51→22:44)
[2020-08-22] MEDS: HYDROmorphone 1mg/ml Carpuject IVP PRN ×2 (16:52→22:44)
--- NOTE | 2020-08-22 17:36 | General Progress Note ---
Subjective Date patient seen: Aug 22, 2020 Allergies: Coded Allergies: CODEINE (Verified Allergy, Intermediate, hives, 12/24/18) Uncoded Allergies: RED MEAT (Adverse Reaction, Unknown, ANAPHYLACTIC SHOCK, 12/25/18) Subjective doing better Objective Last 24 Hour Vital Signs Date Time Temp Pulse Resp B/P (MAP) Pulse Ox O2 Delivery O2 Flow Rate FiO2 08/22/20 16:00 98.1 64 16 123/77 (92) 97 08/22/20 12:00 97.8 72 16 120/71 (87) 98 08/22/20 09:00 Room Air 08/22/20 04:00 98.0 60 19 109/54 (72) 96 08/21/20 21:00 Room Air 08/21/20 20:00 98.0 68 18 115/69 (84) 98 Intake and Output 08/21/20 08/22/20 19:00 07:00 Intake Total 2200 ml 600 ml Output Total 700 ml Balance 2200 ml -100 ml Intake Oral 2200 ml 600 ml Output Urine Total 700 ml # Voids 4 3 Laboratory Tests 08/22/20 06:55: White Blood Count 5.1, Red Blood Count 3.97L, Hemoglobin 13.2L, Hematocrit 37.4L , Mean Corpuscular Volume 94, Mean Corpuscular Hemoglobin 33.1H, Mean Corpuscular Hemoglobin Concent 35.1, Red Cell Distribution Width 11.4L, Platelet Count 200, Mean Platelet Volume 6.5, Neutrophils (%) (Auto) 61.1, Lymphocytes (%) (Auto) 24.5, Monocytes (%) (Auto) 11.9H, Eosinophils (%) (Auto) 1.5, Basophils (%) (Auto) 1.0, Sodium Level 141, Potassium Level 4.0, Chloride Level 104, Carbon Dioxide Level 32, Anion Gap 5, Blood Urea Nitrogen 13, Creatinine 1.2, Estimat Glomerular Filtration Rate > 60, Glucose Level 88, Calcium Level 8.5, Vancomycin Level Trough 9.5 Height (Feet): 6 Height (Inches): 0.00 Weight (Pounds): 185 General Appearance: alert EENT: normal ENT inspection Neck: normal alignment Cardiovascular: normal rate Respiratory/Chest: lungs clear Abdomen: non tender, soft Extremities: other - rt knee swelling better , decrease rom Assessment/Plan Status: stable Assessment/Plan: 1 infected knee 2 sob [address] loco is on the case id eval cont abx cont pt/ot Alvin Mederos MD Aug 22, 2020 17:36
[2020-08-22] MEDS: Vancomycin 1.25gm Premix q24h IVPB SCH (19:30)
[2020-08-22 19:42] VITALS: BP 118/73
[2020-08-22 23:02] VITALS: BP 118/73
[2020-08-23] MEDS: DiphenhydrAMINE 50mg/ml Inj IVP PRN ×2 (06:16→18:22)
[2020-08-23] MEDS: HYDROmorphone 1mg/ml Carpuject IVP PRN ×3 (06:17→23:00)
[2020-08-23 08:00] VITALS: BP 116/68
[2020-08-23] MEDS: Vancomycin 1.25gm Premix q24h IVPB SCH ×2 (09:26→20:46)
[2020-08-23] MEDS: Docusate 100mg cap ORAL SCH ×3 (09:27→17:26)
[2020-08-23] MEDS: HYDROcodone/Acetamin 5/325 tab ORAL PRN ×2 (09:36→20:47)
[2020-08-23] MEDS ORDERED: Heparin1,000 units/500ml Premix(Conc:2 units/ml) IV PRN (10:45)
[2020-08-23] MEDS ORDERED: Lidocaine 1% Plain 30 ml INJ PRN (10:45)
--- NOTE | 2020-08-23 11:21 | Infectious Diseases Prog Note ---
Assessment/Plan Assessment/Plan antibiotics : vancomycin iv A 1. right knee septic arthritis with gram negative rods patient went into swimming pool after last surgery 2. s/p arthroscopy, synovectomy, i and d 3. s/p fall down a flight of stairs P 1. continue iv vancomycin 2. start cefepime 3. PICC line 4. will follow up cultures Subjective Constitutional: Denies: fever, chills Respiratory: Denies: shortness of breath, dry cough Gastrointestinal/Abdominal: Denies: nausea, vomiting, diarrhea Musculoskeletal: Reports: pain - decreased in right knee Allergies: Coded Allergies: CODEINE (Verified Allergy, Intermediate, hives, 12/24/18) Uncoded Allergies: RED MEAT (Adverse Reaction, Unknown, ANAPHYLACTIC SHOCK, 12/25/18) Objective Last 24 Hour Vital Signs Date Time Temp Pulse Resp B/P (MAP) Pulse Ox O2 Delivery O2 Flow Rate FiO2 08/23/20 10:06 97.2 08/22/20 23:02 97.2 71 16 118/73 (88) 98 08/22/20 21:00 Room Air 08/22/20 20:29 98.4 08/22/20 19:42 98.4 68 18 118/73 (88) 98 08/22/20 16:00 98.1 64 16 123/77 (92) 97 08/22/20 12:00 97.8 72 16 120/71 (87) 98 Height (Feet): 6 Height (Inches): 0.00 Weight (Pounds): 185 Respiratory/Chest: lungs clear Cardiovascular: normal rate, regular rhythm, no gallop/murmur Abdomen: soft, non tender Extremities: no edema, other - right knee in bandages Microbiology Date/Time Source Procedure Growth Status 08/20/20 14:32 Knee Right Gram Stain - Final Resulted 08/20/20 14:32 Aerobic Culture - Preliminary Gram Negative Bacillus 1 Resulted 08/20/20 14:32 Knee Right Anaerobic Culture - Preliminary NO GROWTH AFTER 24 HOURS Resulted Current Medications Medications (Trade) Dose Ordered Sig/Annabel Route PRN Reason Start Time Stop Time Status Last Admin Dose Admin Acetaminophen/ Hydrocodone Bitart ([place] 5/325) 1 tab Q4H PRN ORAL For Pain 08/20/20 14:30 08/27/20 14:29 08/23/20 09:36 Albuterol Sulfate (Proventil MDI) 2 puff Q4H PRN INH Shortness of Breath 08/20/20 23:30 11/18/20 23:29 Chlorhexidine Gluconate (Lisa-Hex 2%) 1 applic DAILY@2000 TOPIC 08/24/20 20:00 08/24/20 23:59 Diphenhydramine HCl (Benadryl) 25 mg Q6H PRN IVP Itching- lesser 08/20/20 23:30 09/19/20 23:29 08/23/20 06:16 Diphenhydramine HCl (Benadryl) 50 mg Q6H PRN IVP Itching 08/20/20 18:30 09/19/20 18:29 08/22/20 16:51 Docusate Sodium (Colace) 100 mg THREE TIMES A DAY ORAL 08/20/20 18:00 09/19/20 17:59 08/23/20 09:27 Heparin Sodium/ Sodium Chloride (Heparin 1000 units/500ml Premix) 1,000 unit PRN PRN IV Radiology Procedure 08/23/20 10:45 08/24/20 23:59 Hydromorphone HCl (Dilaudid) 0.5 mg Q4H PRN SUBQ Mild Pain (Pain Scale 1-3) 08/20/20 14:30 08/27/20 14:29 Hydromorphone HCl (Dilaudid) 1 mg Q3H PRN IVP Moderate Pain (Pain Scale 4-6) 08/21/20 10:45 08/27/20 14:29 08/23/20 06:17 Lidocaine HCl (Xylocaine 1% 30ml) 30 ml PRN PRN INJ Radiology Procedure 08/23/20 10:45 08/24/20 23:59 Ondansetron HCl (Zofran) 4 mg Q6H PRN IVP Nausea & Vomiting 08/20/20 14:30 09/19/20 14:29 08/22/20 19:29 Temazepam (RestoriL) 15 mg HSPRN PRN ORAL Insomnia 08/21/20 21:00 08/27/20 20:59 08/23/20 01:02 Vancomycin HCl 250 ml @ 166.667 mls/hr Q12H IVPB 08/22/20 20:00 08/27/20 19:59 08/23/20 09:26 Vancomycin HCl (Vanco pharmacy to dose) 1 ea DAILY PRN MISC Per rx protocol 08/20/20 14:30 09/19/20 14:29 Cheryl Guerra MD Aug 23, 2020 11:20
[2020-08-23 12:00] VITALS: BP 111/76
[2020-08-23] MEDS: Cefepime HCl 2 GM in D5W 55 ML IVPB SCH ×2 (13:56→20:47)
--- NOTE | 2020-08-23 15:55 | General Progress Note ---
Subjective Allergies: Coded Allergies: CODEINE (Verified Allergy, Intermediate, hives, 12/24/18) Uncoded Allergies: RED MEAT (Adverse Reaction, Unknown, ANAPHYLACTIC SHOCK, 12/25/18) Subjective doing better Objective Last 24 Hour Vital Signs Date Time Temp Pulse Resp B/P (MAP) Pulse Ox O2 Delivery O2 Flow Rate FiO2 08/23/20 12:00 98.4 85 16 111/76 (88) 99 08/23/20 10:06 97.2 08/23/20 09:00 Room Air 08/23/20 08:00 98.2 80 16 116/68 (84) 98 08/22/20 23:02 97.2 71 16 118/73 (88) 98 08/22/20 21:00 Room Air 08/22/20 20:29 98.4 08/22/20 19:42 98.4 68 18 118/73 (88) 98 08/22/20 16:00 98.1 64 16 123/77 (92) 97 Intake and Output 08/22/20 08/23/20 19:00 07:00 Intake Total 1275 ml 1600 ml Balance 1275 ml 1600 ml Intake Oral 1000 ml 1600 ml IV Total 275 ml # Voids 2 4 # Bowel Movements 1 Height (Feet): 6 Height (Inches): 0.00 Weight (Pounds): 185 General Appearance: alert Neck: supple Cardiovascular: regular rhythm, regularly irregular Respiratory/Chest: lungs clear Abdomen: non tender, soft Extremities: other - rt knee srgery Assessment/Plan Status: stable Assessment/Plan: 1 infected knee 2 sob [address] loco is on the case id eval cont abx cont pt/ot Alvin Mederos MD Aug 23, 2020 15:55
--- NOTE | 2020-08-23 15:56 | General Progress Note ---
Subjective Allergies: Coded Allergies: CODEINE (Verified Allergy, Intermediate, hives, 12/24/18) Uncoded Allergies: RED MEAT (Adverse Reaction, Unknown, ANAPHYLACTIC SHOCK, 12/25/18) Subjective doing better Objective Last 24 Hour Vital Signs Date Time Temp Pulse Resp B/P (MAP) Pulse Ox O2 Delivery O2 Flow Rate FiO2 08/23/20 12:00 98.4 85 16 111/76 (88) 99 08/23/20 10:06 97.2 08/23/20 09:00 Room Air 08/23/20 08:00 98.2 80 16 116/68 (84) 98 08/22/20 23:02 97.2 71 16 118/73 (88) 98 08/22/20 21:00 Room Air 08/22/20 20:29 98.4 08/22/20 19:42 98.4 68 18 118/73 (88) 98 08/22/20 16:00 98.1 64 16 123/77 (92) 97 Intake and Output 08/22/20 08/23/20 19:00 07:00 Intake Total 1275 ml 1600 ml Balance 1275 ml 1600 ml Intake Oral 1000 ml 1600 ml IV Total 275 ml # Voids 2 4 # Bowel Movements 1 Height (Feet): 6 Height (Inches): 0.00 Weight (Pounds): 185 Assessment/Plan Status: stable Assessment/Plan: 1 infected knee 2 sob 3 marijuna consumption bert loco is on the case id eval cont abx cont pt/ot dc plan tomorrow with iv abx per id fu with Alvin Hernández MD Aug 23, 2020 15:56
[2020-08-23 16:00] VITALS: BP 119/71
[2020-08-23] MEDS ORDERED: MEN'S ONE DAIL1 EACH PO (19:06)
[2020-08-23] MEDS ORDERED: LORATADINE10 M1 PO (19:06)
[2020-08-23] MEDS ORDERED: GLUCOSAMINE1000 M1 PO (19:06)
[2020-08-23] MEDS ORDERED: MELATONIN 5 MG1 EAC1 ORAL (19:06)
[2020-08-23] MEDS ORDERED: TURMERIC 500 M1 EAC1 PO (19:06)
[2020-08-23 21:00] VITALS: BP 110/62
[2020-08-24 04:00] VITALS: BP 117/69
[2020-08-24] MEDS: DiphenhydrAMINE 50mg/ml Inj IVP PRN ×3 (06:16→21:35)
[2020-08-24] MEDS: HYDROcodone/Acetamin 5/325 tab ORAL PRN (06:16)
[2020-08-24 08:00] VITALS: BP 113/63
[2020-08-24] MEDS: Docusate 100mg cap ORAL SCH ×3 (08:13→17:28)
[2020-08-24] MEDS: HYDROmorphone 1mg/ml Carpuject IVP PRN ×4 (08:14→20:05)
--- NOTE | 2020-08-24 08:39 | Consultation ---
History of Present Illness General Date patient seen: Aug 24, 2020 Chief Complaint: Present Illness Allergies: Coded Allergies: CODEINE (Verified Allergy, Intermediate, hives, 12/24/18) Uncoded Allergies: RED MEAT (Adverse Reaction, Unknown, ANAPHYLACTIC SHOCK, 12/25/18) Medication History Scheduled Meloxicam* (Meloxicam*), 15 MG PO DAILY, (Reported) Multivitamin With Minerals (Men's One Daily), 1 EACH PO DAILY, (Reported) Scheduled PRN Loratadine (Claritin*), 10 MG PO DAILY PRN for allergies, (Reported) Melatonin (Melatonin 5 Mg Tablet), 1 TAB ORAL BEDTIME PRN for Insomnia, (Reported) Miscellaneous Medications Glucosamine Sulfate 2KCL (Glucosamine), 1,000 MG PO, (Reported) Turmeric/Turmeric Root Extract (Turmeric 500 mg Capsule), 1 EACH PO, (Reported) Discontinued Medications Cyclobenzaprine Hcl* (Flexeril*), 5 MG ORAL DAILY, (Reported) Discontinued Reason: Therapy completed Gabapentin* (Gabapentin*), 100 MG ORAL BID, (Reported) Discontinued Reason: Therapy completed Hydrocodone Bit/Acetaminophen 5-325* (Corbin 5-325 Tablet*), 1 TAB ORAL Q6H PRN for FOR PAIN Discontinued Reason: Therapy completed Tramadol Hcl* (Ultram*), 50 MG ORAL Q6H PRN for For Pain, (Reported) Discontinued Reason: Therapy completed Patient History Healthcare decision maker Resuscitation status Advanced Directive on File Physical Exam Last 24 Hour Vital Signs Date Time Temp Pulse Resp B/P (MAP) Pulse Ox O2 Delivery O2 Flow Rate FiO2 08/24/20 04:00 98.7 79 17 117/69 (85) 100 08/23/20 21:00 Room Air 08/23/20 21:00 99.3 78 18 110/62 (78) 96 08/23/20 17:56 99.3 08/23/20 16:00 99.3 74 16 119/71 (87) 97 08/23/20 12:00 98.4 85 16 111/76 (88) 99 08/23/20 10:06 97.2 08/23/20 09:00 Room Air Intake and Output 08/23/20 08/24/20 19:00 07:00 Intake Total 1800 ml 700 ml Output Total 2200 ml 1200 ml Balance -400 ml -500 ml Intake Oral 1800 ml 700 ml Output Urine Total 2200 ml 1200 ml # Voids 5 5 # Bowel Movements 1 Laboratory Tests Test 08/24/20 06:54 Vancomycin Level Trough 10.5 ug/mL (5.0-12.0) Height (Feet): 6 Height (Inches): 0.00 Weight (Pounds): 185 Medications Current Medications Medications (Trade) Dose Ordered Sig/Annabel Route PRN Reason Start Time Stop Time Status Last Admin Dose Admin Acetaminophen/ Hydrocodone Bitart ([place]bin 5/325) 1 tab Q4H PRN ORAL For Pain 08/20/20 14:30 08/27/20 14:29 08/24/20 06:16 Albuterol Sulfate (Proventil MDI) 2 puff Q4H PRN INH Shortness of Breath 08/20/20 23:30 11/18/20 23:29 Cefepime HCl 2 gm/ Dextrose 55 ml @ 110 mls/hr EVERY 12 HOURS IVPB 08/23/20 13:00 08/30/20 12:59 08/23/20 20:47 Chlorhexidine Gluconate (Lisa-Hex 2%) 1 applic DAILY@2000 TOPIC 08/24/20 20:00 08/24/20 23:59 Diphenhydramine HCl (Benadryl) 25 mg Q6H PRN IVP Itching- lesser 08/20/20 23:30 09/19/20 23:29 08/24/20 06:16 Diphenhydramine HCl (Benadryl) 50 mg Q6H PRN IVP Itching 08/20/20 18:30 09/19/20 18:29 08/22/20 16:51 Docusate Sodium (Colace) 100 mg THREE TIMES A DAY ORAL 08/20/20 18:00 09/19/20 17:59 08/24/20 08:13 Heparin Sodium/ Sodium Chloride (Heparin 1000 units/500ml Premix) 1,000 unit PRN PRN IV Radiology Procedure 08/23/20 10:45 08/24/20 23:59 Hydromorphone HCl (Dilaudid) 0.5 mg Q4H PRN SUBQ Mild Pain (Pain Scale 1-3) 08/20/20 14:30 08/27/20 14:29 Hydromorphone HCl (Dilaudid) 1 mg Q3H PRN IVP Moderate Pain (Pain Scale 4-6) 08/21/20 10:45 08/27/20 14:29 08/24/20 08:14 Lidocaine HCl (Xylocaine 1% 30ml) 30 ml PRN PRN INJ Radiology Procedure 08/23/20 10:45 08/24/20 23:59 Ondansetron HCl (Zofran) 4 mg Q6H PRN IVP Nausea & Vomiting 08/20/20 14:30 09/19/20 14:29 08/22/20 19:29 Temazepam (RestoriL) 15 mg HSPRN PRN ORAL Insomnia 08/21/20 21:00 08/27/20 20:59 08/23/20 01:02 Vancomycin HCl 250 ml @ 166.667 mls/hr Q12H IVPB 08/22/20 20:00 08/27/20 19:59 08/23/20 20:46 Vancomycin HCl (Vanco pharmacy to dose) 1 ea DAILY PRN MISC Per rx protocol 08/20/20 14:30 09/19/20 14:29 Assessment/Plan Assessment/Plan: (1) Right knee pain (2) Septic joint s/p arthroscopy and I+D seen dictated Unruly Matias Aug 24, 2020 08:39
[2020-08-24] MEDS: Vancomycin 1.25gm Premix q24h IVPB SCH (08:52)
--- NOTE | 2020-08-24 09:28 | General Progress Note ---
Subjective Allergies: Coded Allergies: CODEINE (Verified Allergy, Intermediate, hives, 12/24/18) Uncoded Allergies: RED MEAT (Adverse Reaction, Unknown, ANAPHYLACTIC SHOCK, 12/25/18) Subjective doing better Objective Last 24 Hour Vital Signs Date Time Temp Pulse Resp B/P (MAP) Pulse Ox O2 Delivery O2 Flow Rate FiO2 08/24/20 08:00 98.2 77 20 113/63 (80) 97 08/24/20 04:00 98.7 79 17 117/69 (85) 100 08/23/20 21:00 Room Air 08/23/20 21:00 99.3 78 18 110/62 (78) 96 08/23/20 17:56 99.3 08/23/20 16:00 99.3 74 16 119/71 (87) 97 08/23/20 12:00 98.4 85 16 111/76 (88) 99 08/23/20 10:06 97.2 Intake and Output 08/23/20 08/24/20 19:00 07:00 Intake Total 1800 ml 700 ml Output Total 2200 ml 1200 ml Balance -400 ml -500 ml Intake Oral 1800 ml 700 ml Output Urine Total 2200 ml 1200 ml # Voids 5 5 # Bowel Movements 1 Laboratory Tests 08/24/20 06:54: Vancomycin Level Trough 10.5 Height (Feet): 6 Height (Inches): 0.00 Weight (Pounds): 185 Assessment/Plan Status: stable Assessment/Plan: 1 infected knee 2 sob 3 marijuna consumption bert loco is on the case id eval cont abx cont pt/ot dc plan tomorrow with iv abx per id fu with Alvin Hernández MD Aug 24, 2020 09:28
[2020-08-24] MEDS ORDERED: Methocarbamol 500mg tab ORAL PRN (09:30)
--- NOTE | 2020-08-24 09:30 | General Progress Note ---
Subjective Allergies: Coded Allergies: CODEINE (Verified Allergy, Intermediate, hives, 12/24/18) Uncoded Allergies: RED MEAT (Adverse Reaction, Unknown, ANAPHYLACTIC SHOCK, 12/25/18) Subjective doing better Objective Last 24 Hour Vital Signs Date Time Temp Pulse Resp B/P (MAP) Pulse Ox O2 Delivery O2 Flow Rate FiO2 08/24/20 08:00 98.2 77 20 113/63 (80) 97 08/24/20 04:00 98.7 79 17 117/69 (85) 100 08/23/20 21:00 Room Air 08/23/20 21:00 99.3 78 18 110/62 (78) 96 08/23/20 17:56 99.3 08/23/20 16:00 99.3 74 16 119/71 (87) 97 08/23/20 12:00 98.4 85 16 111/76 (88) 99 08/23/20 10:06 97.2 Intake and Output 08/23/20 08/24/20 19:00 07:00 Intake Total 1800 ml 700 ml Output Total 2200 ml 1200 ml Balance -400 ml -500 ml Intake Oral 1800 ml 700 ml Output Urine Total 2200 ml 1200 ml # Voids 5 5 # Bowel Movements 1 Laboratory Tests 08/24/20 06:54: Vancomycin Level Trough 10.5 Height (Feet): 6 Height (Inches): 0.00 Weight (Pounds): 185 Extremities: other - more swelling rt knee , wound clean Assessment/Plan Status: stable Assessment/Plan: 1 infected knee 2 sob [address] loco is on the case id eval cont abx cont pt/ot hold dc for swelling of rt knee Alvin Mederos MD Aug 24, 2020 09:30
[2020-08-24] MEDS: Cefepime HCl 2 GM in D5W 55 ML IVPB SCH ×2 (10:45→20:03)
--- NOTE | 2020-08-24 11:14 | Infectious Diseases Prog Note ---
Assessment/Plan Assessment/Plan antibiotics : vancomycin iv, cefepime A 1. right knee septic arthritis with pseudomonas patient went into swimming pool after last surgery 2. s/p arthroscopy, synovectomy, i and d 3. s/p fall down a flight of stairs P 1. d/c iv vancomycin 2. continue cefepime 26 more days 3. PICC line pending 4. will follow up cultures Subjective Constitutional: Denies: fever, chills Respiratory: Denies: shortness of breath, dry cough Gastrointestinal/Abdominal: Reports: nausea; Denies: vomiting, diarrhea Musculoskeletal: Reports: pain - in right leg Allergies: Coded Allergies: CODEINE (Verified Allergy, Intermediate, hives, 12/24/18) Uncoded Allergies: RED MEAT (Adverse Reaction, Unknown, ANAPHYLACTIC SHOCK, 12/25/18) Objective Last 24 Hour Vital Signs Date Time Temp Pulse Resp B/P (MAP) Pulse Ox O2 Delivery O2 Flow Rate FiO2 08/24/20 08:44 98.7 08/24/20 08:00 98.2 77 20 113/63 (80) 97 08/24/20 04:00 98.7 79 17 117/69 (85) 100 08/23/20 21:00 Room Air 08/23/20 21:00 99.3 78 18 110/62 (78) 96 08/23/20 17:56 99.3 08/23/20 16:00 99.3 74 16 119/71 (87) 97 08/23/20 12:00 98.4 85 16 111/76 (88) 99 Height (Feet): 6 Height (Inches): 0.00 Weight (Pounds): 185 Respiratory/Chest: lungs clear Cardiovascular: normal rate, regular rhythm, no gallop/murmur Abdomen: soft, non tender Extremities: no edema, other - right leg in bandages Laboratory Tests Test 08/24/20 06:54 Vancomycin Level Trough 10.5 ug/mL (5.0-12.0) Current Medications Medications (Trade) Dose Ordered Sig/Annabel Route PRN Reason Start Time Stop Time Status Last Admin Dose Admin Albuterol Sulfate (Proventil MDI) 2 puff Q4H PRN INH Shortness of Breath 08/20/20 23:30 11/18/20 23:29 Cefepime HCl 2 gm/ Dextrose 55 ml @ 110 mls/hr EVERY 12 HOURS IVPB 08/23/20 13:00 08/30/20 12:59 08/24/20 10:45 Chlorhexidine Gluconate (Lisa-Hex 2%) 1 applic DAILY@2000 TOPIC 08/24/20 20:00 08/24/20 23:59 Diphenhydramine HCl (Benadryl) 25 mg Q6H PRN IVP Itching- lesser 08/20/20 23:30 09/19/20 23:29 08/24/20 06:16 Diphenhydramine HCl (Benadryl) 50 mg Q6H PRN IVP Itching 08/20/20 18:30 09/19/20 18:29 08/22/20 16:51 Docusate Sodium (Colace) 100 mg THREE TIMES A DAY ORAL 08/20/20 18:00 09/19/20 17:59 08/24/20 08:13 Gabapentin (Neurontin) 300 mg TID ORAL 08/24/20 13:00 09/23/20 12:59 Heparin Sodium/ Sodium Chloride (Heparin 1000 units/500ml Premix) 1,000 unit PRN PRN IV Radiology Procedure 08/23/20 10:45 08/24/20 23:59 Hydromorphone HCl (Dilaudid) 1 mg Q3H PRN IVP Severe Pain (Pain Scale 7-10) 08/21/20 10:45 08/27/20 14:29 08/24/20 08:14 Lidocaine HCl (Xylocaine 1% 30ml) 30 ml PRN PRN INJ Radiology Procedure 08/23/20 10:45 08/24/20 23:59 Methocarbamol (Robaxin) 500 mg Q8H PRN ORAL Muscle Spasm 08/24/20 09:30 09/23/20 09:29 Ondansetron HCl (Zofran) 4 mg Q6H PRN IVP Nausea & Vomiting 08/20/20 14:30 09/19/20 14:29 08/22/20 19:29 Oxycodone/ Acetaminophen (Percocet 5-325) 1 tab Q4H PRN ORAL Moderate Pain (Pain Scale 4-6) 08/24/20 10:16 08/31/20 10:15 Temazepam (RestoriL) 15 mg HSPRN PRN ORAL Insomnia 08/21/20 21:00 08/27/20 20:59 08/23/20 01:02 Vancomycin HCl 250 ml @ 166.667 mls/hr Q12H IVPB 08/22/20 20:00 08/27/20 19:59 08/24/20 08:52 Vancomycin HCl (Vanco pharmacy to dose) 1 ea DAILY PRN MISC Per rx protocol 08/20/20 14:30 09/19/20 14:29 Cheryl Guerra MD Aug 24, 2020 11:14
[2020-08-24 12:00] VITALS: BP 113/76
--- NOTE | 2020-08-24 15:00 | Pre-Procedure Note/Attestation ---
Pre-Procedure Note/Attestation Complete Prior to Procedure Planned Procedure: not applicable Procedure Narrative: PICC Indications for Procedure Pre-Operative Diagnosis: needs IV access Attestation I attest that I discussed the nature of the procedure; its benefits; risks and complications; and alternatives (and the risks and benefits of such alternatives), prior to the procedure, with the patient (or the patient's legal desk representative). I attest that, if there was a reasonable possibility of needing a blood graves sfusion, the patient (or the patient's legal desk representative) was given the [facility] standardized written summary, pursuant to the Alexandre Josué Blood Safety Act ([place] Health and Safety Code # 1645, as amended). I attest that I re-evaluated the patient just prior to the surgery and that there has been no change in the patient's H&P, except as documented below: Anatoliy Wells MD Aug 24, 2020 15:00
--- NOTE | 2020-08-24 15:01 | Brief Operative Note ---
Immediate Post Operative Note Operative Note Pre-op Diagnosis: needs IV access Procedure: PICC Post-op Diagnosis: same as pre-op Surgeon: Harshad WELLS Specimen: none Complications: none Fluids: none Implant(s) used?: No Anatoliy Wells MD Aug 24, 2020 15:01
[2020-08-24 16:00] VITALS: BP 123/75
--- NOTE | 2020-08-24 16:47 | Diagnostic Imaging Report ---
Indications: Needs long-term IV access Technique: Ultrasound confirms patent compressible left basilic vein. Total sterile technique, including sterile probe cover and sterile gel, hat, mask, sterile gown, large sterile drape, and preparation with 2% chlorhexidine utilized. Local anesthesia with 1% lidocaine. Under real-time ultrasound guidance, puncture distal vein using 21-gauge needle, documented and archived, passage 0.018 guidewire under direct fluoroscopy, which was used to determine appropriate catheter length, exchange for 4 Angolan peel-away sheath. 4 Angolan Bard dual-lumen power PICC cut to 45 cm. It was inserted through the peel-away sheath. Peel-away sheath and guidewire removed. Catheter fixed to the skin. Both catheter ports aspirated and flushed. Patient tolerated procedure well, without immediate complication. Digital radiograph documents satisfactory catheter tip position, at the cavoatrial junction. Total fluoroscopy time 18.9 seconds. Total dose area product [id number] Total number of images: 1 Impression: Successful placement of left arm PICC under sonographic and fluoroscopic guidance, as described above.
[2020-08-24 20:00] VITALS: BP 134/79
[2020-08-24] MEDS ORDERED: Dyna-Hex 2% Top Sol 2oz TOPIC SCH (20:00)
--- NOTE | 2020-08-24 20:21 | Diagnostic Imaging Report ---
EXAM: US Duplex Bilateral Lower Extremities Veins CLINICAL HISTORY: DVT TECHNIQUE: Real-time duplex ultrasound scan of the bilateral lower extremity veins integrating B-mode two-dimensional vascular structure, Doppler spectral analysis, color flow Doppler imaging and compression. COMPARISON: 08/19/2020 FINDINGS: Right deep veins: Unremarkable. No DVT in the right common femoral, femoral, proximal deep femoral or popliteal veins. The veins demonstrate normal color flow, are normally compressible, with normal phasic flow and/or augmentation response. Right superficial veins: Unremarkable. Left deep veins: Unremarkable. No DVT in the left common femoral, femoral, proximal deep femoral or popliteal veins. The veins demonstrate normal color flow, are normally compressible, with normal phasic flow and/or augmentation response. Left superficial veins: Unremarkable. Soft tissues: No acute findings. IMPRESSION: No DVT within the lower extremities.
[2020-08-24] MEDS: oxyCODONE HCL/Acetaminophen 5/325mg ORAL PRN (23:08)
[2020-08-24 23:49] VITALS: BP 110/80
[2020-08-25] MEDS: oxyCODONE HCL/Acetaminophen 5/325mg ORAL PRN ×4 (03:59→21:57)
[2020-08-25 04:00] VITALS: BP 110/78
[2020-08-25 04:20] LABS: BASOPHILS % (AUTO) 1.3 % (0.0-2.0); EOSINOPHILS % (AUTO) 2.3 % (0.0-3.0); HEMATOCRIT 40.3 % (42.0-52.0); HEMOGLOBIN 14.4 G/DL (14.2-18.0); LYMPHOCYTES % (AUTO) 13.7 % (20.0-45.0); MEAN CORPUSCULAR VOLUME 94 FL (80-99); MONOCYTES % (AUTO) 10.6 % (1.0-10.0); NEUTROPHILS % (AUTO) 72.1 % (45.0-75.0); PLATELET COUNT 195 K/UL (150-450); RED BLOOD COUNT 4.27 M/UL (4.70-6.10); RED CELL DISTRIBUTION WIDTH 11.1 % (11.6-14.8); WHITE BLOOD COUNT 8.4 K/UL (4.8-10.8)
[2020-08-25 04:37] LABS: ANION GAP 7 mmol/L (5-15); BLOOD UREA NITROGEN 10 mg/dL (7-18); CARBON DIOXIDE 31 MMOL/L (21-32); CHLORIDE 99 MMOL/L (98-107); CREATININE 1.1 MG/DL (0.55-1.30); POTASSIUM 4.4 MMOL/L (3.5-5.1); SODIUM 136 MMOL/L (136-145)
[2020-08-25 08:00] VITALS: BP 111/77
[2020-08-25] MEDS: Cefepime HCl 2 GM in D5W 55 ML IVPB SCH ×2 (08:28→20:35)
[2020-08-25] MEDS: Docusate 100mg cap ORAL SCH ×3 (08:28→17:12)
[2020-08-25] MEDS: HYDROmorphone 1mg/ml Carpuject IVP PRN ×5 (08:33→23:50)
--- NOTE | 2020-08-25 09:00 | Consultation ---
DATE OF CONSULTATION: 08/24/2020 PAIN MANAGEMENT CONSULTATION CONSULTING PHYSICIAN: Kyler Pryor MD. REFERRING PHYSICIAN: Evgeny Mederos MD PHYSICIAN ANIMAL EVISCERATOR: DIANNA Farah CHIEF COMPLAINT: Right knee pain. HISTORY OF PRESENT ILLNESS: This is a 40-year-old man who has been seen on the Med\Surg floor of [facility] for initial pain management consultation. Patient has been having right knee pain since on off and on, which has become constant, acute on chronic pain, rating at 8/10 to 9/10 at its worst and reduced to 5/10 on current medication. Described the pain as burning, sharp pain, throbbing. Increased with movement. Reports that had an injury where he fell and was recently admitted and found to have a septic knee. Underwent arthroscopy and I and D with Dr. Carroll, the orthopedic surgeon. However, has continued swelling and pain, awaiting followup to discuss with the orthopedic surgeon. At this time, patient complained of pain. Started on Dilaudid 1 mg IV every 3 hours as needed for severe pain. Patient reports it does radiate We were consulted, so the patient will have adequate pain control while here in the hospital. PAST MEDICAL HISTORY: Denies PAST SURGICAL HISTORY: Low back surgery. SOCIAL HISTORY: Denies smoking tobacco, drinking alcohol, or IV drug abuse. Does smoke marijuana. ALLERGIES: Patient claims codeine. MEDICATIONS: Meloxicam, Claritin, melatonin, Flexeril, Neurontin, [place], tramadol. REVIEW OF SYSTEMS: Denies rash, fever, chills, sweating, dizziness, drowsiness, blurred vision, sore throat, or change in weight. No shortness of breath, chest pain, or palpitation. No nausea, vomiting, diarrhea, or blood in the stool or urine. No dysuria. PHYSICAL EXAMINATION: GENERAL: Alert, awake, and oriented. VITAL SIGNS: Blood pressure 117/69, heart rate 77, oxygen saturation 100%, respiratory rate is 18, temperature is 97 degrees Fahrenheit. HEENT: PERRLA. NECK: Range of motion is full in all directions. No tenderness to paracervical muscles. No adenopathy. LUNGS: Decreased breath sounds bilaterally. HEART: S1 and S2 regular. ABDOMEN: Soft, nontender. BACK: Range of motion is full on flexion and extension. EXTREMITIES: Upper extremity range of motion is full in all directions. No cyanosis. No clubbing. No edema. Sensory is intact. Lower extremity range of motion of the right knee is reduced. Tenderness to palpation is slightly noted. ASSESSMENT AND PLAN: This is a 40-year-old male with right knee pain, septic joint, status post arthroscopy and I and D. The patient will be continued on Dilaudid 1 mg IV every 3 hours as needed for severe pain. Start the patient on Percocet 5/325 one tablet every 4 hours as needed for moderate pain, Neurontin 300 mg tablets two tablets daily, robaxin 500mg every 8 hours as needed for muscle spasm. The patient was discussed with Dr. Pryor and he concurred. We will follow the patient. Thank you very much for the courtesy of this consultation. Kyler Pryor M.D. DIANNA Farah DR: JUAN JOB#: [id number] CC: MELONY
--- NOTE | 2020-08-25 09:13 | General Progress Note ---
Subjective Date patient seen: Aug 25, 2020 Time patient seen: 09:30 - am Allergies: Coded Allergies: CODEINE (Verified Allergy, Intermediate, hives, 12/24/18) Uncoded Allergies: RED MEAT (Adverse Reaction, Unknown, ANAPHYLACTIC SHOCK, 12/25/18) Subjective HISTORY OF PRESENT ILLNESS: This is a 40-year-old man who has been seen on the Med\Surg floor of [facility]. Patient is in bed and showing no signs of pain or distress. Pain has been better tolerated with the addition of Neurontin and robaxin. Using the Dilaudid as needed. REVIEW OF SYSTEMS: Denies rash, fever, chills, sweating, dizziness, drowsiness, blurred vision, sore throat, or change in weight. No shortness of breath, chest pain, or palpitation. No nausea, vomiting, diarrhea, or blood in the stool or urine. No dysuria. Objective Last 24 Hour Vital Signs Date Time Temp Pulse Resp B/P (MAP) Pulse Ox O2 Delivery O2 Flow Rate FiO2 08/25/20 04:00 99.0 88 16 110/78 (89) 97 08/24/20 23:49 99.6 83 17 110/80 (90) 97 08/24/20 21:00 Room Air 08/24/20 20:00 99.6 87 16 134/79 (97) 97 08/24/20 16:19 98.7 08/24/20 16:00 98.6 87 17 123/75 (91) 96 08/24/20 12:04 98.7 08/24/20 12:00 98.2 80 18 113/76 (88) 98 Intake and Output 08/24/20 08/25/20 19:00 07:00 Intake Total 1100 ml 800 ml Output Total 950 ml 1700 ml Balance 150 ml -900 ml Intake Oral 1100 ml 800 ml Output Urine Total 950 ml 1700 ml # Voids 4 4 Laboratory Tests 08/25/20 04:00: White Blood Count 8.4, Red Blood Count 4.27L, Hemoglobin 14.4, Hematocrit 40.3L, Mean Corpuscular Volume 94, Mean Corpuscular Hemoglobin 33.7H, Mean Corpuscular Hemoglobin Concent 35.8, Red Cell Distribution Width 11.1L, Platelet Count 195, Mean Platelet Volume 6.7, Neutrophils (%) (Auto) 72.1, Lymphocytes (%) (Auto) 13.7L, Monocytes (%) (Auto) 10.6H, Eosinophils (%) (Auto) 2.3, Basophils (%) (Auto) 1.3, Sodium Level 136, Potassium Level 4.4, Chloride Level 99, Carbon Dioxide Level 31, Anion Gap 7, Blood Urea Nitrogen 10, Creatinine 1.1, Estimat Glomerular Filtration Rate > 60, Glucose Level 99, Calcium Level 9.0 Height (Feet): 6 Height (Inches): 0.00 Weight (Pounds): 185 Objective PHYSICAL EXAMINATION: GENERAL: Alert, awake, and oriented. LUNGS: Decreased breath sounds bilaterally. HEART: S1 and S2 regular. ABDOMEN: Soft, nontender. EXTREMITIES: Lower extremity range of motion of the right knee is reduced. Tenderness to palpation is slightly noted. NEURO: No changes. Assessment/Plan Assessment/Plan: (1) Right knee pain (2) Septic joint s/p arthroscopy and I+D Patient will be continued on Dilaudid, Percocet, Neurontin and Robaxin. D/w Dr. Pryor and he concurred. Unruly Matias Aug 25, 2020 09:13
--- NOTE | 2020-08-25 09:33 | General Progress Note ---
Subjective Allergies: Coded Allergies: CODEINE (Verified Allergy, Intermediate, hives, 12/24/18) Uncoded Allergies: RED MEAT (Adverse Reaction, Unknown, ANAPHYLACTIC SHOCK, 12/25/18) Subjective doing better pain kneelt with swelling possible id Objective Last 24 Hour Vital Signs Date Time Temp Pulse Resp B/P (MAP) Pulse Ox O2 Delivery O2 Flow Rate FiO2 08/25/20 04:00 99.0 88 16 110/78 (89) 97 08/24/20 23:49 99.6 83 17 110/80 (90) 97 08/24/20 21:00 Room Air 08/24/20 20:00 99.6 87 16 134/79 (97) 97 08/24/20 16:19 98.7 08/24/20 16:00 98.6 87 17 123/75 (91) 96 08/24/20 12:04 98.7 08/24/20 12:00 98.2 80 18 113/76 (88) 98 Intake and Output 08/24/20 08/25/20 19:00 07:00 Intake Total 1100 ml 800 ml Output Total 950 ml 1700 ml Balance 150 ml -900 ml Intake Oral 1100 ml 800 ml Output Urine Total 950 ml 1700 ml # Voids 4 4 Laboratory Tests 08/25/20 04:00: White Blood Count 8.4, Red Blood Count 4.27L, Hemoglobin 14.4, Hematocrit 40.3L, Mean Corpuscular Volume 94, Mean Corpuscular Hemoglobin 33.7H, Mean Corpuscular Hemoglobin Concent 35.8, Red Cell Distribution Width 11.1L, Platelet Count 195, Mean Platelet Volume 6.7, Neutrophils (%) (Auto) 72.1, Lymphocytes (%) (Auto) 13.7L, Monocytes (%) (Auto) 10.6H, Eosinophils (%) (Auto) 2.3, Basophils (%) (Auto) 1.3, Sodium Level 136, Potassium Level 4.4, Chloride Level 99, Carbon Dioxide Level 31, Anion Gap 7, Blood Urea Nitrogen 10, Creatinine 1.1, Estimat Glomerular Filtration Rate > 60, Glucose Level 99, Calcium Level 9.0 Height (Feet): 6 Height (Inches): 0.00 Weight (Pounds): 185 General Appearance: alert Cardiovascular: normal rate Respiratory/Chest: lungs clear Abdomen: non tender, soft Extremities: other - synovitis rt knee Assessment/Plan Assessment/Plan: 1 infected knee 2 sob [address] loco is on the case id eval cont abx cont pt/ot hold dc for swelling of rt knee Alvin Mederos MD Aug 25, 2020 09:33
--- NOTE | 2020-08-25 09:34 | General Progress Note ---
Subjective Allergies: Coded Allergies: CODEINE (Verified Allergy, Intermediate, hives, 12/24/18) Uncoded Allergies: RED MEAT (Adverse Reaction, Unknown, ANAPHYLACTIC SHOCK, 12/25/18) Subjective doing better pain kneelt with swelling possible id Objective Last 24 Hour Vital Signs Date Time Temp Pulse Resp B/P (MAP) Pulse Ox O2 Delivery O2 Flow Rate FiO2 08/25/20 04:00 99.0 88 16 110/78 (89) 97 08/24/20 23:49 99.6 83 17 110/80 (90) 97 08/24/20 21:00 Room Air 08/24/20 20:00 99.6 87 16 134/79 (97) 97 08/24/20 16:19 98.7 08/24/20 16:00 98.6 87 17 123/75 (91) 96 08/24/20 12:04 98.7 08/24/20 12:00 98.2 80 18 113/76 (88) 98 Intake and Output 08/24/20 08/25/20 19:00 07:00 Intake Total 1100 ml 800 ml Output Total 950 ml 1700 ml Balance 150 ml -900 ml Intake Oral 1100 ml 800 ml Output Urine Total 950 ml 1700 ml # Voids 4 4 Laboratory Tests 08/25/20 04:00: White Blood Count 8.4, Red Blood Count 4.27L, Hemoglobin 14.4, Hematocrit 40.3L, Mean Corpuscular Volume 94, Mean Corpuscular Hemoglobin 33.7H, Mean Corpuscular Hemoglobin Concent 35.8, Red Cell Distribution Width 11.1L, Platelet Count 195, Mean Platelet Volume 6.7, Neutrophils (%) (Auto) 72.1, Lymphocytes (%) (Auto) 13.7L, Monocytes (%) (Auto) 10.6H, Eosinophils (%) (Auto) 2.3, Basophils (%) (Auto) 1.3, Sodium Level 136, Potassium Level 4.4, Chloride Level 99, Carbon Dioxide Level 31, Anion Gap 7, Blood Urea Nitrogen 10, Creatinine 1.1, Estimat Glomerular Filtration Rate > 60, Glucose Level 99, Calcium Level 9.0 Height (Feet): 6 Height (Inches): 0.00 Weight (Pounds): 185 Assessment/Plan Assessment/Plan: 1 infected knee 2 sob [address] loco is on the case id eval cont abx cont pt/ot possible id tomorrow dw pain management Alvin Mederos MD Aug 25, 2020 09:34
[2020-08-25 12:00] VITALS: BP 115/72
[2020-08-25] MEDS: DiphenhydrAMINE 50mg/ml Inj IVP PRN ×2 (12:51→21:47)
--- NOTE | 2020-08-25 15:10 | Diagnostic Imaging Report ---
Indication: Shortness of breath Technique: One view of the chest Comparison: 08/19/2020 Findings: Speckled calcifications are again demonstrated in the right hilar node versus perihilar nodule. The lungs and pleural spaces are clear. The heart size is normal. Impression: No acute process Right hilar node or perihilar nodule with speckled calcifications again demonstrated. While likely postinflammatory or a hamartoma, consider further evaluation with CT scanning
[2020-08-25 16:00] VITALS: BP 112/72
[2020-08-25 20:00] VITALS: BP 114/81
[2020-08-26] VITALS (15 sets, daily range): BP systolic 115–135; BP diastolic 70–95
[2020-08-26] MEDS: oxyCODONE HCL/Acetaminophen 5/325mg ORAL PRN ×2 (03:50→17:43)
[2020-08-26] MEDS: DiphenhydrAMINE 50mg/ml Inj IVP PRN ×3 (03:57→23:16)
[2020-08-26] MEDS: HYDROmorphone 1mg/ml Carpuject IVP PRN ×3 (06:45→21:32)
[2020-08-26] MEDS: Docusate 100mg cap ORAL SCH ×2 (09:00→18:00)
[2020-08-26] MEDS: Cefepime HCl 2 GM in D5W 55 ML IVPB SCH ×2 (09:21→20:16)
--- NOTE | 2020-08-26 09:25 | General Progress Note ---
Subjective Date patient seen: Aug 26, 2020 Time patient seen: 08:30 - am Allergies: Coded Allergies: CODEINE (Verified Allergy, Intermediate, hives, 12/24/18) Uncoded Allergies: RED MEAT (Adverse Reaction, Unknown, ANAPHYLACTIC SHOCK, 12/25/18) Subjective HISTORY OF PRESENT ILLNESS: This is a 40-year-old man who has been seen on the Med\Surg floor of [facility]. Patient in bed and reports that the pain has been better tolerated on the Percocet and Dilaudid. Scheduled for I+D today. REVIEW OF SYSTEMS: Denies rash, fever, chills, sweating, dizziness, drowsiness, blurred vision, sore throat, or change in weight. No shortness of breath, chest pain, or palpitation. No nausea, vomiting, diarrhea, or blood in the stool or urine. No dysuria. Objective Last 24 Hour Vital Signs Date Time Temp Pulse Resp B/P (MAP) Pulse Ox O2 Delivery O2 Flow Rate FiO2 08/26/20 04:00 98.0 91 18 129/82 (98) 96 08/26/20 00:00 98.2 85 18 115/86 (96) 98 08/25/20 21:00 Room Air 08/25/20 20:00 99.1 82 18 114/81 (92) 99 08/25/20 16:00 98.8 94 17 112/72 (85) 98 08/25/20 12:00 97.8 92 18 115/72 (86) 99 Intake and Output 08/25/20 08/26/20 19:00 07:00 Intake Total 800 ml Output Total 1500 ml Balance -700 ml Intake Oral 800 ml Output Urine Total 1500 ml # Voids 5 4 Height (Feet): 6 Height (Inches): 0.00 Weight (Pounds): 185 Objective PHYSICAL EXAMINATION: GENERAL: Alert, awake, and oriented. LUNGS: Decreased breath sounds bilaterally. HEART: S1 and S2 regular. ABDOMEN: Soft, nontender. EXTREMITIES: Lower extremity range of motion of the right knee is reduced. Tenderness to palpation is slightly noted. NEURO: No changes. Assessment/Plan Assessment/Plan: (1) Right knee pain (2) Septic joint s/p arthroscopy and I+D Patient will be continued on Dilaudid, Percocet, Neurontin and Robaxin. Rx for Percocet 7.5/325mg 20 tabs and Narcan nasal spray was written for patient in anticipation for discharge. D/w Dr. Pryor and he concurred. Unruly Matias Aug 26, 2020 09:25
--- NOTE | 2020-08-26 10:57 | Infectious Diseases Prog Note ---
Assessment/Plan Assessment/Plan antibiotics : cefepime A 1. right knee septic arthritis with pseudomonas patient went into swimming pool after last surgery 2. s/p arthroscopy, synovectomy, i and d 3. s/p fall down a flight of stairs P 1. continue cefepime 2. will follow up cultures 3. surgery planned today Subjective Constitutional: Denies: fever, chills Respiratory: Reports: shortness of breath; Denies: dry cough Gastrointestinal/Abdominal: Reports: nausea, vomiting; Denies: diarrhea Musculoskeletal: Reports: pain Allergies: Coded Allergies: CODEINE (Verified Allergy, Intermediate, hives, 12/24/18) Uncoded Allergies: RED MEAT (Adverse Reaction, Unknown, ANAPHYLACTIC SHOCK, 12/25/18) Objective Last 24 Hour Vital Signs Date Time Temp Pulse Resp B/P (MAP) Pulse Ox O2 Delivery O2 Flow Rate FiO2 08/26/20 08:00 98.2 83 18 118/74 (89) 100 08/26/20 04:00 98.0 91 18 129/82 (98) 96 08/26/20 00:00 98.2 85 18 115/86 (96) 98 08/25/20 21:00 Room Air 08/25/20 20:00 99.1 82 18 114/81 (92) 99 08/25/20 16:00 98.8 94 17 112/72 (85) 98 08/25/20 12:00 97.8 92 18 115/72 (86) 99 Height (Feet): 6 Height (Inches): 0.00 Weight (Pounds): 185 Respiratory/Chest: lungs clear Cardiovascular: normal rate, regular rhythm, no gallop/murmur Abdomen: soft, non tender Extremities: no edema, other - right knee swelling, left arm PICC Current Medications Medications (Trade) Dose Ordered Sig/Annabel Route PRN Reason Start Time Stop Time Status Last Admin Dose Admin Albuterol Sulfate (Proventil MDI) 2 puff Q4H PRN INH Shortness of Breath 08/20/20 23:30 11/18/20 23:29 Cefepime HCl 2 gm/ Dextrose 55 ml @ 110 mls/hr EVERY 12 HOURS IVPB 08/23/20 13:00 08/30/20 12:59 08/26/20 09:21 Diphenhydramine HCl (Benadryl) 25 mg Q6H PRN IVP Itching- lesser 08/20/20 23:30 09/19/20 23:29 08/24/20 21:35 Diphenhydramine HCl (Benadryl) 50 mg Q6H PRN IVP Itching 08/20/20 18:30 09/19/20 18:29 08/26/20 03:57 Docusate Sodium (Colace) 100 mg THREE TIMES A DAY ORAL 08/20/20 18:00 09/19/20 17:59 08/25/20 17:12 Gabapentin (Neurontin) 300 mg TID ORAL 08/24/20 13:00 09/23/20 12:59 08/25/20 17:12 Hydromorphone HCl (Dilaudid) 1 mg Q3H PRN IVP Severe Pain (Pain Scale 7-10) 08/21/20 10:45 08/27/20 14:29 08/26/20 10:12 Methocarbamol (Robaxin) 500 mg Q8H PRN ORAL Muscle Spasm 08/24/20 09:30 09/23/20 09:29 08/24/20 17:28 Ondansetron HCl (Zofran) 4 mg Q6H PRN IVP Nausea & Vomiting 08/20/20 14:30 09/19/20 14:29 08/26/20 03:58 Oxycodone/ Acetaminophen (Percocet 5-325) 1 tab Q4H PRN ORAL Moderate Pain (Pain Scale 4-6) 08/24/20 10:16 08/31/20 10:15 08/26/20 03:50 Temazepam (RestoriL) 15 mg HSPRN PRN ORAL Insomnia 08/21/20 21:00 08/27/20 20:59 08/26/20 01:07 Cheryl Guerra MD Aug 26, 2020 10:57
[2020-08-26] MEDS ORDERED: NeoSporin Gu Irrig 1ml Amp IRRIG ONE ×2 (13:03→13:49)
[2020-08-26] MEDS ORDERED: Bacitracin 50000 Units Vial ONE ×2 (13:03→13:49)
--- NOTE | 2020-08-26 13:38 | Operative Note - PDOC ---
Operative Note Operative Note Pre-op Diagnosis: right knee septic joint Procedure: see op report Post-op Diagnosis: same as pre-op Operative Findings: consistent w/pre-op dx studies Surgeon: Harshad OTT Anesthesia: MAC Specimen: none Complications: none Condition: stable Fluids: none Estimated Blood Loss: none Implant(s) used?: No Gabo Carroll MD Aug 26, 2020 13:38
--- NOTE | 2020-08-26 13:38 | Pre-Procedure Note/Attestation ---
Pre-Procedure Note/Attestation Complete Prior to Procedure Planned Procedure: right Procedure Narrative: knee arthrotomy and incison and drainage Indications for Procedure Pre-Operative Diagnosis: right knee septic joint Attestation I attest that I discussed the nature of the procedure; its benefits; risks and complications; and alternatives (and the risks and benefits of such alternative s), prior to the procedure, with the patient (or the patient's legal dealer compliance representative). I attest that, if there was a reasonable possibility of needing a blood transfusion, the patient (or the patient's legal dealer compliance representative) was given the [facility] standardized written summary, pursuant to the Alexandre Josué Blood Safety Act ([place] Health and Safety Code # 1645, as amended). I attest that I re-evaluated the patient just prior to the surgery and that there has been no change in the patient's H&P, except as documented below: Gabo Carroll MD Aug 26, 2020 13:38
[2020-08-26] MEDS ORDERED: Hydromorphone 0.5mg/0.5ml inj SUBQ PRN (13:45)
[2020-08-26] MEDS ORDERED: HYDROcodone/Acetamin 5/325 tab ORAL PRN (13:45)
[2020-08-26] MEDS ORDERED: Midazolam 2mg/2ml Inj ONE (13:58)
[2020-08-26] MEDS ORDERED: fentaNYL 100 mcg/2 mL IV ONE ×2 (13:58→14:26)
[2020-08-26] MEDS ORDERED: NS Irrig 3000ml IRRIG ONE ×3 (14:00→14:39)
[2020-08-26] MEDS ORDERED: Sterile Water Irrig 1000ml IRRIG ONE (14:00)
[2020-08-26] MEDS ORDERED: LR 1000ml ONE (14:00)
[2020-08-26] MEDS ORDERED: Lidocaine 1% MPF 10mg/ml 5ml ONE (14:18)
--- NOTE | 2020-08-26 14:35 | Anethesia Preoperative Eval ---
Anesthesia Pre-op PMH/ROS General Date of Evaluation: Aug 26, 2020 Time of Evaluation: 14:00 Anesthesiologist: ed ASA Score: ASA 2 Mallampati Score Class I : Soft palate, uvula, fauces, pillars visible Class II: Soft palate, uvula, fauces visible Class III: Soft palate, base of uvula visible Class IV: Only hard plate visible Mallampati Classification: Class I Surgeon: Glen Diagnosis: infected knee Surgical Procedure: Right Knee I&D Anesthesia History: none Social History: current smoker Family History: no anesthesia problems Allergies: Coded Allergies: CODEINE (Verified Allergy, Intermediate, hives, 12/24/18) Uncoded Allergies: RED MEAT (Adverse Reaction, Unknown, ANAPHYLACTIC SHOCK, 12/25/18) Medications: see eMAR Patient NPO?: Yes NPO Date: Aug 26, 2020 NPO Time: 00:01 Past Medical History Cardiovascular: Denies: HTN, CAD, [place], valve dz, arrhythmia, other Pulmonary: Denies: asthma, COPD, GUTIERREZ, other Gastrointestinal/Genitourinary: Denies: GERD, CRI, ESRD, other Neurologic/Psychiatric: Denies: dementia, CVA, depression/anxiety, TIA, other Endocrine: Denies: DM, hypothyroidism, steroids, other HEENT: Denies: cataract (L), cataract (R), glaucoma, YAVAPAI-PRESCOTT (L), YAVAPAI[place]PRESCOTT (R), other Hematology/Immune: Denies: anemia, DVT, bleeding disorder, other Musculoskeletal/Integumentary: Reports: OA; Denies: RA, DJD, DDD, edema, other Other: other - chronic pain PSxH Narrative: back sx, knee surgery Anesthesia Pre-op Phys. Exam Physician Exam Last Vital Signs Date Time Temp Pulse Resp B/P (MAP) Pulse Ox O2 Delivery O2 Flow Rate FiO2 08/26/20 08:00 98.2 83 18 118/74 (89) 100 08/25/20 21:00 Room Air 08/20/20 15:55 6 Constitutional: NAD Neurologic: CN 2-12 intact Cardiovascular: RRR Respiratory: CTA Gastrointestinal: S/NT/ND Airway Exam Mallampati Classification 2 Mallampati Score: Class II MO: full ROM: full Dentures: no upper, no lower Anesthesia Pre-op A/P Studies Pre-op Studies: EKG - sr Risk Assessment & Plan Assessment: no change Plan: general Status Change Before Surgery: No Pre-Antibiotics Drug: ancef Given Within 1 Hr of Incision: Yes Time Given: 14:15 Evangelina Bruno CRNA Aug 26, 2020 14:35
[2020-08-26] MEDS ORDERED: Ketorolac 30mg Inj ONE (14:36)
[2020-08-26] MEDS ORDERED: fentaNYL 100 mcg/2 mL IV PRN (14:45)
[2020-08-26] MEDS ORDERED: Metoclopramide 10mg/2ml Inj IVP PRN (14:45)
[2020-08-26] MEDS ORDERED: Hydromorphone 0.5mg/0.5ml inj IVP PRN (14:45)
[2020-08-26] MEDS ORDERED: DiphenhydrAMINE 50mg/ml Inj IVP PRN (14:45)
[2020-08-26] MEDS ORDERED: Hydrogen Peroxide 473ml Bottle TOPIC ONE (14:55)
--- NOTE | 2020-08-26 15:03 | General Progress Note ---
Subjective Allergies: Coded Allergies: CODEINE (Verified Allergy, Intermediate, hives, 12/24/18) Uncoded Allergies: RED MEAT (Adverse Reaction, Unknown, ANAPHYLACTIC SHOCK, 12/25/18) Subjective doing better pain kneelt with swelling incision drainge today Objective Last 24 Hour Vital Signs Date Time Temp Pulse Resp B/P (MAP) Pulse Ox O2 Delivery O2 Flow Rate FiO2 08/26/20 09:00 Room Air 08/26/20 08:00 98.2 83 18 118/74 (89) 100 08/26/20 04:00 98.0 91 18 129/82 (98) 96 08/26/20 00:00 98.2 85 18 115/86 (96) 98 08/25/20 21:00 Room Air 08/25/20 20:00 99.1 82 18 114/81 (92) 99 08/25/20 16:00 98.8 94 17 112/72 (85) 98 Intake and Output 08/25/20 08/26/20 19:00 07:00 Intake Total 800 ml Output Total 1500 ml Balance -700 ml Intake Oral 800 ml Output Urine Total 1500 ml # Voids 5 4 Height (Feet): 6 Height (Inches): 0.00 Weight (Pounds): 186 General Appearance: alert EENT: PERRL/EOMI Neck: supple Cardiovascular: regular rhythm Respiratory/Chest: normal breath sounds Abdomen: non tender, soft Assessment/Plan Assessment/Plan: 1 infected knee for id today 2 sob better [address] loco is on the case id eval cont abx cont pt/ot possible id tomorrow dw pain management Alvin Mederos MD Aug 26, 2020 15:03
--- NOTE | 2020-08-26 15:09 | Immediate Post-Op Evaluation ---
Immediate Post-Op Evalulation Immediate Post-Op Evalulation Procedure: R Knee Arthroscopy, I&D Date of Evaluation: Aug 26, 2020 Time of Evaluation: 15:08 IV Fluids: 500 Blood Pressure Systolic: 125 Blood Pressure Diastolic: 86 Pulse Rate: 87 Respiratory Rate: 14 O2 Sat by Pulse Oximetry: 98 Temperature (Fahrenheit): 97.5 Nausea: No Vomiting: No Complications none Patient Status: awake, reacts, patent Hydration Status: adequate Drug: ancef Given Within 1 Hr of Incision: Yes Time Given: 14:10 Evangelina Bruno CRNA Aug 26, 2020 15:09
[2020-08-26] MEDS ORDERED: Meperidine 25mg/1ml Inj (FOR RIGORS ONLY) IM PRN (15:15)
[2020-08-26] MEDS: Docusate Sod/Senna tab ORAL SCH (18:00)
[2020-08-26] MEDS: oxyCONTIN 20mg tab ORAL SCH (19:08)
--- NOTE | 2020-08-26 22:30 | Operative Note - Dictated ---
DATE OF OPERATION: 08/20/2020 PREOPERATIVE DIAGNOSIS: Recurrent right knee infection. POSTOPERATIVE DIAGNOSIS: Recurrent right knee infection. PROCEDURES: 1. Right knee arthrotomy, synovectomy, medial and lateral gutter. 2. Irrigation and debridement, 12 liters of bacitracin irrigation. SURGEON: Gabo Carroll M.D. ANESTHESIA: General. INDICATION: The patient is a pleasant gentleman who underwent an arthroscopic I and D on Saturday. Postoperatively, he was doing well, but then had recurrent pain and swelling. This kind of persisted over 24 to 48 hours and he was having more pain which he was not experiencing after surgery. Therefore, it was felt that we will do another incision and drainage. Therefore, the risks, limitations, expectations, complications of the procedure were discussed in detail. All questions were addressed. DESCRIPTION OF PROCEDURE: After informed consent was obtained, the patient was brought into the operating room and placed under general anesthesia. Right leg was prepped and draped in a sterile manner. Incision for medial parapatellar arthrotomy was performed. Skin was incised. Subcutaneous tissue was dissected. Medial parapatellar arthrotomy was performed. Fluid was sent off for analysis. Medial lateral synovial tissue was identified in the medial lateral gutter, which was debrided. Once the synovectomy was completed, 12 liters of bacitracin irrigation was then used to copiously irrigate the knee. Once that was completed, the arthrotomy site closed using #1 Vicryl suture, 2-0 Vicryl suture, and 3-0 Monocryl suture and Dermabond dressing. Compression dressing was applied. The patient was awoken and taken to the recovery room with stable vital signs. EBL: None. COMPLICATIONS: None. SPECIMEN: Include medial and lateral patella synovial tissue. Cultures include right knee aspirate, was sent off for aerobic and anaerobic cultures and Gram stain. Gabo Carroll M.D. DR: YINA JOB#: [id number] CC:
[2020-08-27] VITALS: BP 124/74
[2020-08-27] MEDS: HYDROmorphone 1mg/ml Carpuject IVP PRN ×5 (01:45→17:47)
[2020-08-27 04:00] VITALS: BP 135/78
[2020-08-27 08:00] VITALS: BP 134/80
[2020-08-27] MEDS: Cefepime HCl 2 GM in D5W 55 ML IVPB SCH ×2 (08:59→20:46)
[2020-08-27] MEDS: Docusate 100mg cap ORAL SCH ×3 (08:59→17:56)
[2020-08-27] MEDS: Docusate Sod/Senna tab ORAL SCH ×2 (08:59→17:56)
[2020-08-27] MEDS: oxyCONTIN 20mg tab ORAL SCH ×2 (08:59→20:45)
[2020-08-27] MEDS: celeBREX 200mg Cap **SURGERY PATIENTS ONLY ORAL SCH (08:59)
--- NOTE | 2020-08-27 09:12 | 48 Hour Post Anesthesia Eval ---
Post Anesthesia Evaluation Procedure: R knee arthrotomy I&D Date of Evaluation: Aug 27, 2020 Time of Evaluation: 09:11 Blood Pressure Systolic: 132 0: 56 Pulse Rate: 72 Respiratory Rate: 18 Temperature (Fahrenheit): 97.4 O2 Sat by Pulse Oximetry: 98 Airway: patent Nausea: No Vomiting: No Pain Intensity: 3 Hydration Status: adequate Cardiopulmonary Status: stable Mental Status/LOC: patient returned to baseline Follow-up Care/Observations: n/a Post-Anesthesia Complications: none Follow-up care needed: N/A Yinka Johnson MD Aug 27, 2020 09:12
[2020-08-27 12:00] VITALS: BP 135/80
--- NOTE | 2020-08-27 14:49 | General Progress Note ---
Subjective Allergies: Coded Allergies: CODEINE (Verified Allergy, Intermediate, hives, 12/24/18) Uncoded Allergies: RED MEAT (Adverse Reaction, Unknown, ANAPHYLACTIC SHOCK, 12/25/18) Subjective doing better pain and knee swelling better Objective Last 24 Hour Vital Signs Date Time Temp Pulse Resp B/P (MAP) Pulse Ox O2 Delivery O2 Flow Rate FiO2 08/27/20 12:00 97.5 78 18 135/80 (98) 97 08/27/20 11:48 97.4 08/27/20 09:12 72 18 98 08/27/20 09:00 Room Air 08/27/20 08:37 98.1 08/27/20 08:37 98.1 08/27/20 08:00 97.5 74 18 134/80 (98) 100 08/27/20 07:36 98.1 08/27/20 04:00 98.1 76 18 135/78 (97) 96 08/27/20 00:00 97.9 68 18 124/74 (91) 97 08/26/20 20:07 Room Air 08/26/20 20:00 98.8 80 18 117/78 (91) 97 08/26/20 17:44 98.7 79 18 115/81 (92) 100 08/26/20 17:00 98.3 78 18 133/80 (97) 100 08/26/20 16:40 97.7 86 19 121/81 98 Room Air 08/26/20 16:30 74 20 128/70 98 Room Air 08/26/20 16:15 72 19 123/79 97 Room Air 08/26/20 16:00 76 20 125/81 100 Room Air 08/26/20 15:52 97.5 08/26/20 15:52 97.5 08/26/20 15:45 89 19 121/77 100 Simple Mask 6.0 08/26/20 15:30 84 20 132/84 100 Simple Mask 6.0 08/26/20 15:15 82 19 135/92 100 Simple Mask 6.0 08/26/20 15:10 74 20 135/95 100 Simple Mask 6.0 08/26/20 15:09 87 14 98 08/26/20 15:05 97.5 83 19 133/83 99 Simple Mask 6.0 Intake and Output 08/26/20 08/27/20 19:00 07:00 Intake Total 1000 ml 1750 ml Output Total 5 ml 2000 ml Balance 995 ml -250 ml Intake Oral 300 ml 1750 ml IV Total 700 ml Output Urine Total 2000 ml Estimated Blood Loss 5 ml # Voids 4 5 Height (Feet): 6 Height (Inches): 0.00 Weight (Pounds): 186 General Appearance: alert EENT: PERRL/EOMI Neck: supple Cardiovascular: regular rhythm Respiratory/Chest: lungs clear Abdomen: non tender, soft Extremities: inflammation, swelling Assessment/Plan Assessment/Plan: 1 infected knee for id today 2 sob better [address] loco is on the case id eval cont abx cont pt/ot possible id tomorrow dw pain management Alvin Mederos MD Aug 27, 2020 14:49
--- NOTE | 2020-08-27 15:08 | Infectious Diseases Prog Note ---
Assessment/Plan Assessment/Plan A 1. right knee septic arthritis with pseudomonas patient went into swimming pool after last surgery 2. s/p arthroscopy, synovectomy, i and d 3. s/p fall down a flight of stairs P 1. continue cefepime 2. will follow up cultures Subjective ROS Limited/Unobtainable: Yes Constitutional: Reports: no symptoms Respiratory: Reports: no symptoms Gastrointestinal/Abdominal: Reports: no symptoms Genitourinary: Reports: no symptoms Musculoskeletal: Reports: pain, other - contolled Allergies: Coded Allergies: CODEINE (Verified Allergy, Intermediate, hives, 12/24/18) Uncoded Allergies: RED MEAT (Adverse Reaction, Unknown, ANAPHYLACTIC SHOCK, 12/25/18) Objective Last 24 Hour Vital Signs Date Time Temp Pulse Resp B/P (MAP) Pulse Ox O2 Delivery O2 Flow Rate FiO2 08/27/20 12:00 97.5 78 18 135/80 (98) 97 08/27/20 11:48 97.4 08/27/20 09:12 72 18 98 08/27/20 09:00 Room Air 08/27/20 08:37 98.1 08/27/20 08:37 98.1 08/27/20 08:00 97.5 74 18 134/80 (98) 100 08/27/20 07:36 98.1 08/27/20 04:00 98.1 76 18 135/78 (97) 96 08/27/20 00:00 97.9 68 18 124/74 (91) 97 08/26/20 20:07 Room Air 08/26/20 20:00 98.8 80 18 117/78 (91) 97 08/26/20 17:44 98.7 79 18 115/81 (92) 100 08/26/20 17:00 98.3 78 18 133/80 (97) 100 08/26/20 16:40 97.7 86 19 121/81 98 Room Air 08/26/20 16:30 74 20 128/70 98 Room Air 08/26/20 16:15 72 19 123/79 97 Room Air 08/26/20 16:00 76 20 125/81 100 Room Air 08/26/20 15:52 97.5 08/26/20 15:52 97.5 08/26/20 15:45 89 19 121/77 100 Simple Mask 6.0 08/26/20 15:30 84 20 132/84 100 Simple Mask 6.0 08/26/20 15:15 82 19 135/92 100 Simple Mask 6.0 08/26/20 15:10 74 20 135/95 100 Simple Mask 6.0 08/26/20 15:09 87 14 98 Height (Feet): 6 Height (Inches): 0.00 Weight (Pounds): 186 General Appearance: no acute distress HEENT: mucous membranes moist Respiratory/Chest: lungs clear Cardiovascular: normal rate, other - left arm PICC line Abdomen: soft, non tender Extremities: other - R knee effusion Neurologic/Psychiatric: alert, oriented x 3, responsive Microbiology Date/Time Source Procedure Growth Status 08/26/20 14:30 Knee Right Gram Stain - Final Resulted 08/26/20 14:30 Knee Right Surgical Biopsy Culture Pending Resulted 08/26/20 14:30 Knee Right Aerobic Culture Pending Resulted 08/26/20 14:30 Knee Right Anaerobic Culture Pending Resulted Current Medications Medications (Trade) Dose Ordered Sig/Annabel Route PRN Reason Start Time Stop Time Status Last Admin Dose Admin Acetaminophen/ Hydrocodone Bitart ([place] 5/325) 1 tab Q4H PRN ORAL moderate pain 08/26/20 13:45 09/02/20 13:44 Albuterol Sulfate (Proventil MDI) 2 puff Q4H PRN INH Shortness of Breath 08/20/20 23:30 11/18/20 23:29 Cefepime HCl 2 gm/ Dextrose 55 ml @ 110 mls/hr EVERY 12 HOURS IVPB 08/23/20 13:00 08/30/20 12:59 08/27/20 08:59 Celecoxib (CeleBREX) 200 mg DAILY ORAL 08/27/20 09:00 11/25/20 08:59 08/27/20 08:59 Chlorhexidine Gluconate (Lisa-Hex 2%) 1 applic DAILY@2000 TOPIC 08/27/20 20:00 11/25/20 19:59 Diphenhydramine HCl (Benadryl) 25 mg Q6H PRN IVP Itching- lesser 08/20/20 23:30 09/19/20 23:29 08/26/20 15:45 Diphenhydramine HCl (Benadryl) 50 mg Q6H PRN IVP Itching 08/20/20 18:30 09/19/20 18:29 08/26/20 23:16 Docusate Sodium (Colace) 100 mg THREE TIMES A DAY ORAL 08/26/20 18:00 09/25/20 17:59 08/27/20 13:00 Gabapentin (Neurontin) 300 mg TID ORAL 08/24/20 13:00 09/23/20 12:59 08/27/20 13:00 Hydromorphone HCl (Dilaudid) 0.5 mg Q4H PRN SUBQ Mild Pain (Pain Scale 1-3) 08/26/20 13:45 09/02/20 13:44 Methocarbamol (Robaxin) 500 mg Q8H PRN ORAL Muscle Spasm 08/24/20 09:30 09/23/20 09:29 08/24/20 17:28 Ondansetron HCl (Zofran) 4 mg Q6H PRN IVP Nausea & Vomiting 08/20/20 14:30 09/19/20 14:29 08/26/20 03:58 Oxycodone HCl (OxyCONTIN) 20 mg Q12HR ORAL 08/26/20 18:54 09/02/20 18:53 08/27/20 08:59 Oxycodone/ Acetaminophen (Percocet 10/325) 1 tab Q4H PRN ORAL breakthrough pain 08/26/20 18:54 09/02/20 18:53 08/27/20 07:06 Oxycodone/ Acetaminophen (Percocet 5-325) 1 tab Q4H PRN ORAL severe pain 08/24/20 10:16 08/31/20 10:15 08/26/20 17:43 Senna/Docusate Sodium (Allyson-Colace) 1 tab TWICE A DAY ORAL 08/26/20 18:00 09/25/20 17:59 08/27/20 08:59 Temazepam (RestoriL) 7.5 mg HSPRN PRN ORAL Insomnia 08/26/20 13:45 09/02/20 13:44 Isaiah Fernandes MD Aug 27, 2020 15:08
[2020-08-27 16:00] VITALS: BP 119/75
--- NOTE | 2020-08-27 16:45 | Consultation ---
DATE OF CONSULTATION: 08/27/2020 PULMONARY CONSULTATION CONSULTING PHYSICIAN: Eulogio Evans M.D. HISTORY OF PRESENT ILLNESS: This is a 40-year-old male who has undergone right knee arthroscopy, synovectomy, and debridement. He underwent the procedure on 08/24/[address] Carroll. Postoperatively, the patient has been noted to have fever, low-grade, but is not hypoxic. His x-ray chest obtained two days ago has shown a right hilar node with calcifications. No other significant pathology is noted. Currently, the patient states he is feeling well. He is saturating 98% on room air. His most recent white count is 8000. PAST MEDICAL HISTORY: Notable for chronic marijuana inhalation. No history of any other medical issues. PAST SURGICAL HISTORY: No previous surgeries. REVIEW OF SYSTEMS: Denies any headaches, hematemesis, melena, hematochezia, or weight loss. HOME MEDICATIONS: None currently. He is on IV antibiotics per ID, Zofran, [place], Dilaudid, Restoril, and Colace. ALLERGIES: Codeine. PHYSICAL EXAMINATION: GENERAL: A 40-year-old male. HEENT: Unremarkable. LUNGS: Clear breath sounds bilaterally. ABDOMEN: Soft. EXTREMITIES: There is no edema. Right lower extremity has a dressing in place NEUROLOGIC: Nonfocal. LABORATORY DATA: Lab testing discussed above with normal CBC and BMP. X-ray of the chest unremarkable. Right knee Gram stain and culture shows Pseudomonas aeruginosa, sensitive to most antibiotics except for cefazolin. IMPRESSION: 1. Postop day #3, status post right knee arthroscopy synovectomy. 2. Chronic marijuana usage. DISCUSSION: Currently, the patient is doing well from a respiratory standpoint. He does report symptoms of snoring and apneic spells at night, raising possibility of obstructive sleep apnea. Currently no tests required in the hospital. Outpatient polysomnography requested. Eulogio Evans M.D. DR: EARL JOB#: [id number] CC:
[2020-08-27] MEDS ORDERED: NS 275ml ONE (17:41)
[2020-08-27] MEDS ORDERED: D5W 275ml ONE (17:41)
[2020-08-27] MEDS: DiphenhydrAMINE 50mg/ml Inj IVP PRN (19:06)
[2020-08-27 20:30] VITALS: BP 139/85
[2020-08-27] MEDS: Dyna-Hex 2% Top Sol 2oz TOPIC SCH (20:44)
[2020-08-27] MEDS ORDERED: Milk of Magnesia 30ml Ud ORAL PRN (23:00)
[2020-08-27] MEDS ORDERED: Hydrocortisone 1% Cr TOPIC PRN (23:00)
[2020-08-28] VITALS (7 sets, daily range): BP systolic 101–152; BP diastolic 70–92
[2020-08-28] MEDS: HYDROmorphone 1mg/ml Carpuject IVP PRN ×5 (00:27→23:40)
[2020-08-28] MEDS: DiphenhydrAMINE 50mg/ml Inj IVP PRN ×3 (02:19→18:11)
--- NOTE | 2020-08-28 07:52 | General Progress Note ---
Subjective Date patient seen: Aug 28, 2020 Time patient seen: 06:30 - am Allergies: Coded Allergies: CODEINE (Verified Allergy, Intermediate, hives, 12/24/18) Uncoded Allergies: RED MEAT (Adverse Reaction, Unknown, ANAPHYLACTIC SHOCK, 12/25/18) Subjective HISTORY OF PRESENT ILLNESS: This is a 40-year-old man who has been seen on the Med\Surg floor of [facility]. Patient is s/p I+D of right knee. Continues to c/o pain which has been at a moderate level tolerated on the Dilaudid OxyContin and Percocet. Was started on OxyContin 20mg twice a day as per Dr. Carroll. No new complaints at this time. REVIEW OF SYSTEMS: Denies rash, fever, chills, sweating, dizziness, drowsiness, blurred vision, sore throat, or change in weight. No shortness of breath, chest pain, or palpitation. No nausea, vomiting, diarrhea, or blood in the stool or urine. No dysuria. Objective Last 24 Hour Vital Signs Date Time Temp Pulse Resp B/P (MAP) Pulse Ox O2 Delivery O2 Flow Rate FiO2 08/28/20 04:00 97.9 76 16 129/73 (91) 96 08/28/20 00:00 97.8 86 16 152/92 (112) 98 08/27/20 21:00 Room Air 08/27/20 20:30 98.0 76 18 139/85 (103) 99 08/27/20 18:17 97.5 08/27/20 16:32 97.5 08/27/20 16:00 98.2 78 18 119/75 (90) 98 08/27/20 12:00 97.5 78 18 135/80 (98) 97 08/27/20 11:48 97.4 08/27/20 09:12 72 18 98 08/27/20 09:00 Room Air 08/27/20 08:37 98.1 08/27/20 08:37 98.1 08/27/20 08:00 97.5 74 18 134/80 (98) 100 Intake and Output 08/27/20 08/28/20 19:00 07:00 Intake Total 1300 ml 1500 ml Output Total 1600 ml 2450 ml Balance -300 ml -950 ml Intake Oral 1300 ml 1500 ml Output Urine Total 1600 ml 2450 ml # Voids 5 3 Height (Feet): 6 Height (Inches): 0.00 Weight (Pounds): 186 Objective PHYSICAL EXAMINATION: GENERAL: Alert, awake, and oriented. LUNGS: Decreased breath sounds bilaterally. HEART: S1 and S2 regular. ABDOMEN: Soft, nontender. EXTREMITIES: Lower extremity range of motion of the right knee is reduced. Tenderness to palpation is slightly noted. NEURO: No changes. Assessment/Plan Assessment/Plan: (1) Right knee pain (2) Septic joint s/p arthroscopy and I+D Patient will be continued on OxyContin, Dilaudid, Percocet, Neurontin and Robaxin. D/w Dr. Pryor and he concurred. Unruly Matias Aug 28, 2020 07:52
--- NOTE | 2020-08-28 08:17 | Pulmonology Progress Note ---
Subjective ROS Limited/Unobtainable: Yes Interval Events: None new reported Constitutional: Reports: no symptoms HEENT: Repors: no symptoms Respiratory: Reports: no symptoms Gastrointestinal/Abdominal: Reports: no symptoms Musculoskeletal: Reports: pain, other - contolled Allergies: Coded Allergies: CODEINE (Verified Allergy, Intermediate, hives, 12/24/18) Uncoded Allergies: RED MEAT (Adverse Reaction, Unknown, ANAPHYLACTIC SHOCK, 12/25/18) Objective Last 24 Hour Vital Signs Date Time Temp Pulse Resp B/P (MAP) Pulse Ox O2 Delivery O2 Flow Rate FiO2 08/28/20 04:00 97.9 76 16 129/73 (91) 96 08/28/20 00:00 97.8 86 16 152/92 (112) 98 08/27/20 21:00 Room Air 08/27/20 20:30 98.0 76 18 139/85 (103) 99 08/27/20 18:17 97.5 08/27/20 16:32 97.5 08/27/20 16:00 98.2 78 18 119/75 (90) 98 08/27/20 12:00 97.5 78 18 135/80 (98) 97 08/27/20 11:48 97.4 08/27/20 09:12 72 18 98 08/27/20 09:00 Room Air 08/27/20 08:37 98.1 08/27/20 08:37 98.1 Intake and Output 08/27/20 08/28/20 19:00 07:00 Intake Total 1300 ml 1500 ml Output Total 1600 ml 2450 ml Balance -300 ml -950 ml Intake Oral 1300 ml 1500 ml Output Urine Total 1600 ml 2450 ml # Voids 5 3 General Appearance: no acute distress HEENT: normocephalic Respiratory: chest wall non-tender, lungs clear Cardiovascular: normal peripheral pulses Abdomen: normal bowel sounds Microbiology Date/Time Source Procedure Growth Status 08/26/20 14:30 Knee Right Gram Stain - Final Resulted 08/26/20 14:30 Knee Right Surgical Biopsy Culture - Final Resulted 08/26/20 14:30 Knee Right Aerobic Culture - Preliminary Resulted 08/26/20 14:30 Knee Right Anaerobic Culture Pending Resulted Current Medications Medications (Trade) Dose Ordered Sig/Annabel Route PRN Reason Start Time Stop Time Status Last Admin Dose Admin Albuterol Sulfate (Proventil MDI) 2 puff Q4H PRN INH Shortness of Breath 08/20/20 23:30 11/18/20 23:29 Cefepime HCl 2 gm/ Dextrose 55 ml @ 110 mls/hr EVERY 12 HOURS IVPB 08/23/20 13:00 08/30/20 12:59 08/27/20 20:46 Celecoxib (CeleBREX) 200 mg DAILY ORAL 08/27/20 09:00 11/25/20 08:59 08/27/20 08:59 Chlorhexidine Gluconate (Lisa-Hex 2%) 1 applic DAILY@2000 TOPIC 08/27/20 20:00 11/25/20 19:59 08/27/20 20:44 Diphenhydramine HCl (Benadryl) 25 mg Q6H PRN IVP Itching- lesser 08/20/20 23:30 09/19/20 23:29 08/26/20 15:45 Diphenhydramine HCl (Benadryl) 50 mg Q6H PRN IVP Itching 08/20/20 18:30 09/19/20 18:29 08/28/20 02:19 Docusate Sodium (Colace) 100 mg THREE TIMES A DAY ORAL 08/26/20 18:00 09/25/20 17:59 08/27/20 17:56 Gabapentin (Neurontin) 300 mg TID ORAL 08/24/20 13:00 09/23/20 12:59 08/27/20 17:56 Hydrocortisone (Hydrocortisone) 1 applic BIDPRN PRN TOPIC Itching 08/27/20 23:00 11/25/20 22:59 Hydromorphone HCl (Dilaudid) 1 mg Q3H PRN IVP Severe Pain (Pain Scale 7-10) 08/27/20 17:15 09/03/20 17:14 08/28/20 05:41 Magnesium Hydroxide (Mom) 30 ml PRN PRN ORAL Constipation 08/27/20 23:00 09/26/20 22:59 Methocarbamol (Robaxin) 500 mg Q8H PRN ORAL Muscle Spasm 08/24/20 09:30 09/23/20 09:29 08/24/20 17:28 Ondansetron HCl (Zofran) 4 mg Q6H PRN IVP Nausea & Vomiting 08/20/20 14:30 11/23/20 14:29 08/26/20 03:58 Oxycodone HCl (OxyCONTIN) 20 mg Q12HR ORAL 08/26/20 18:54 09/02/20 18:53 08/27/20 20:45 Oxycodone/ Acetaminophen (Percocet 10325) 1 tab Q4H PRN ORAL breakthrough pain 08/26/20 18:54 09/02/20 18:53 08/28/20 01:42 Senna/Docusate Sodium (Allyson-Colace) 1 tab TWICE A DAY ORAL 08/26/20 18:00 09/25/20 17:59 08/27/20 17:56 Temazepam (RestoriL) 7.5 mg HSPRN PRN ORAL Insomnia 08/26/20 13:45 09/02/20 13:44 Assessment/Plan Assessment/Plan IMPRESSION: 1. Postop day #4, status post right knee arthroscopy and synovectomy. 2. Chronic marijuana usage. DISCUSSION: Currently, the patient is doing well from a respiratory standpoint. He does report symptoms of snoring and apneic spells at night, raising possibility of obstructive sleep apnea. Currently no tests required in the hospital. Outpatient polysomnography requested. Eulogio Evans M.D. Eulogio Evans MD Aug 28, 2020 08:17
[2020-08-28] MEDS: Docusate Sod/Senna tab ORAL SCH ×2 (09:21→18:12)
[2020-08-28] MEDS: Docusate 100mg cap ORAL SCH ×3 (09:21→18:00)
[2020-08-28] MEDS: Cefepime HCl 2 GM in D5W 55 ML IVPB SCH ×2 (09:21→20:04)
[2020-08-28] MEDS: celeBREX 200mg Cap **SURGERY PATIENTS ONLY ORAL SCH (09:23)
[2020-08-28] MEDS: oxyCONTIN 20mg tab ORAL SCH ×2 (09:23→20:05)
[2020-08-28] MEDS ORDERED: Milk of Magnesia 30ml Ud ORAL PRN (17:30)
[2020-08-28] MEDS ORDERED: Cathflo Alteplase 2mg Inj INJ SCH (18:00)
[2020-08-28] MEDS: Dyna-Hex 2% Top Sol 2oz TOPIC SCH (20:03)
[2020-08-29] MEDS: DiphenhydrAMINE 50mg/ml Inj IVP PRN (00:40)
[2020-08-29] MEDS: HYDROmorphone 1mg/ml Carpuject IVP PRN ×2 (03:46→08:25)
[2020-08-29 04:00] VITALS: BP_SYST 120; BP_SYST 121; BP_DIAS 60; BP_DIAS 72
[2020-08-29 08:00] VITALS: BP 126/85
[2020-08-29] MEDS: Docusate Sod/Senna tab ORAL SCH ×2 (08:24→17:35)
[2020-08-29] MEDS: Docusate 100mg cap ORAL SCH (08:24)
[2020-08-29] MEDS: celeBREX 200mg Cap **SURGERY PATIENTS ONLY ORAL SCH ×2 (08:24→08:40)
[2020-08-29] MEDS: Cefepime HCl 2 GM in D5W 55 ML IVPB SCH ×2 (08:25→20:16)
--- NOTE | 2020-08-29 08:39 | General Progress Note ---
Subjective Date patient seen: Aug 29, 2020 Time patient seen: 07:15 - am Allergies: Coded Allergies: CODEINE (Verified Allergy, Intermediate, hives, 12/24/18) Uncoded Allergies: RED MEAT (Adverse Reaction, Unknown, ANAPHYLACTIC SHOCK, 12/25/18) Subjective HISTORY OF PRESENT ILLNESS: This is a 40-year-old man who has been seen on the Med\Surg floor of [facility]. Patient in bed no signs of pain or distress. Pain has been tolerated on the Dilaudid and Oxycontin. D/w patient about changing the Dilaudid to Q4H PRN and he seems to understand. Patient is c/o constipation REVIEW OF SYSTEMS: Denies rash, fever, chills, sweating, dizziness, drowsiness, blurred vision, sore throat, or change in weight. No shortness of breath, chest pain, or palpitation. No nausea, vomiting, diarrhea, or blood in the stool or urine. No dysuria. Objective Last 24 Hour Vital Signs Date Time Temp Pulse Resp B/P (MAP) Pulse Ox O2 Delivery O2 Flow Rate FiO2 08/29/20 08:00 98.1 90 16 126/85 (99) 96 08/29/20 04:00 98.6 81 14 121/72 (88) 98 08/28/20 23:50 98.6 77 15 122/73 (89) 97 08/28/20 20:35 99.2 08/28/20 19:36 Room Air 08/28/20 19:34 99.2 78 18 124/73 (90) 100 08/28/20 16:00 97.5 74 16 101/70 (80) 100 08/28/20 12:00 98.2 73 16 134/81 (98) 96 08/28/20 09:00 Room Air Intake and Output 08/28/20 08/29/20 19:00 07:00 Intake Total 1555 ml 900 ml Output Total 1700 ml 1950 ml Balance -145 ml -1050 ml Intake Oral 1500 ml 900 ml IV Total 55 ml Output Urine Total 1400 ml 1950 ml Emesis 300 ml # Voids 4 Height (Feet): 6 Height (Inches): 0.00 Weight (Pounds): 186 Objective PHYSICAL EXAMINATION: GENERAL: Alert, awake, and oriented. LUNGS: Decreased breath sounds bilaterally. HEART: S1 and S2 regular. ABDOMEN: Soft, nontender. EXTREMITIES: Lower extremity range of motion of the right knee is reduced. Tenderness to palpation is slightly noted. NEURO: No changes. Assessment/Plan Assessment/Plan: (1) Right knee pain (2) Septic joint s/p arthroscopy and I+D Patient will be continued on OxyContin, Dilaudid changed to Q4H prn, Percocet, Neurontin and Robaxin. We will start Relistor for constipation D/w Dr. Pryor and he concurred. Unruly Matias Aug 29, 2020 08:39
[2020-08-29] MEDS ORDERED: HYDROmorphone 1mg/ml Carpuject IVP PRN (09:00)
[2020-08-29] MEDS: oxyCONTIN 20mg tab ORAL SCH ×3 (09:00→20:14)
--- NOTE | 2020-08-29 09:12 | General Progress Note ---
Subjective Allergies: Coded Allergies: CODEINE (Verified Allergy, Intermediate, hives, 12/24/18) Uncoded Allergies: RED MEAT (Adverse Reaction, Unknown, ANAPHYLACTIC SHOCK, 12/25/18) Subjective doing better pain and knee swelling better c/o constipation Objective Last 24 Hour Vital Signs Date Time Temp Pulse Resp B/P (MAP) Pulse Ox O2 Delivery O2 Flow Rate FiO2 08/29/20 08:00 98.1 90 16 126/85 (99) 96 08/29/20 04:00 98.6 81 14 121/72 (88) 98 08/28/20 23:50 98.6 77 15 122/73 (89) 97 08/28/20 20:35 99.2 08/28/20 19:36 Room Air 08/28/20 19:34 99.2 78 18 124/73 (90) 100 08/28/20 16:00 97.5 74 16 101/70 (80) 100 08/28/20 12:00 98.2 73 16 134/81 (98) 96 Intake and Output 08/28/20 08/29/20 19:00 07:00 Intake Total 1555 ml 900 ml Output Total 1700 ml 1950 ml Balance -145 ml -1050 ml Intake Oral 1500 ml 900 ml IV Total 55 ml Output Urine Total 1400 ml 1950 ml Emesis 300 ml # Voids 4 Height (Feet): 6 Height (Inches): 0.00 Weight (Pounds): 186 General Appearance: alert Neck: supple Cardiovascular: regular rhythm Respiratory/Chest: normal breath sounds Abdomen: non tender, soft Extremities: other - mild rt knee swelling with fluid, mild tenderness Assessment/Plan Assessment/Plan: 1 infected knee for id today 2 sob better [address] loco is on the case id eval cont abx cont pt/ot possible id tomorrow dw pain management Alvin Mederos MD Aug 29, 2020 09:12
--- NOTE | 2020-08-29 09:13 | General Progress Note ---
Subjective Allergies: Coded Allergies: CODEINE (Verified Allergy, Intermediate, hives, 12/24/18) Uncoded Allergies: RED MEAT (Adverse Reaction, Unknown, ANAPHYLACTIC SHOCK, 12/25/18) Subjective doing better pain and knee swelling better c/o constipation Objective Last 24 Hour Vital Signs Date Time Temp Pulse Resp B/P (MAP) Pulse Ox O2 Delivery O2 Flow Rate FiO2 08/29/20 08:00 98.1 90 16 126/85 (99) 96 08/29/20 04:00 98.6 81 14 121/72 (88) 98 08/28/20 23:50 98.6 77 15 122/73 (89) 97 08/28/20 20:35 99.2 08/28/20 19:36 Room Air 08/28/20 19:34 99.2 78 18 124/73 (90) 100 08/28/20 16:00 97.5 74 16 101/70 (80) 100 08/28/20 12:00 98.2 73 16 134/81 (98) 96 Intake and Output 08/28/20 08/29/20 19:00 07:00 Intake Total 1555 ml 900 ml Output Total 1700 ml 1950 ml Balance -145 ml -1050 ml Intake Oral 1500 ml 900 ml IV Total 55 ml Output Urine Total 1400 ml 1950 ml Emesis 300 ml # Voids 4 Height (Feet): 6 Height (Inches): 0.00 Weight (Pounds): 186 Assessment/Plan Assessment/Plan: 1 infected knee better, cs negative, id on case 2 sob better [address] loco is on the case id eval cont abx cont pt/ot dc home if ok with id and ortho dw pain management Alvin Mederos MD Aug 29, 2020 09:13
--- NOTE | 2020-08-29 10:37 | Pulmonology Progress Note ---
Subjective ROS Limited/Unobtainable: Yes Interval Events: None new reported Constitutional: Reports: no symptoms HEENT: Repors: no symptoms Respiratory: Reports: no symptoms Gastrointestinal/Abdominal: Reports: no symptoms Musculoskeletal: Reports: pain, other - contolled Allergies: Coded Allergies: CODEINE (Verified Allergy, Intermediate, hives, 12/24/18) Uncoded Allergies: RED MEAT (Adverse Reaction, Unknown, ANAPHYLACTIC SHOCK, 12/25/18) Objective Last 24 Hour Vital Signs Date Time Temp Pulse Resp B/P (MAP) Pulse Ox O2 Delivery O2 Flow Rate FiO2 08/29/20 09:00 Room Air 08/29/20 08:00 98.1 90 16 126/85 (99) 96 08/29/20 04:00 98.6 81 14 121/72 (88) 98 08/28/20 23:50 98.6 77 15 122/73 (89) 97 08/28/20 20:35 99.2 08/28/20 19:36 Room Air 08/28/20 19:34 99.2 78 18 124/73 (90) 100 08/28/20 16:00 97.5 74 16 101/70 (80) 100 08/28/20 12:00 98.2 73 16 134/81 (98) 96 Intake and Output 08/28/20 08/29/20 19:00 07:00 Intake Total 1555 ml 900 ml Output Total 1700 ml 1950 ml Balance -145 ml -1050 ml Intake Oral 1500 ml 900 ml IV Total 55 ml Output Urine Total 1400 ml 1950 ml Emesis 300 ml # Voids 4 General Appearance: no acute distress HEENT: normocephalic Respiratory: chest wall non-tender, lungs clear Cardiovascular: normal peripheral pulses Abdomen: normal bowel sounds Microbiology Date/Time Source Procedure Growth Status 08/26/20 14:30 Knee Right Gram Stain - Final Resulted 08/26/20 14:30 Knee Right Surgical Biopsy Culture - Final Resulted 08/26/20 14:30 Knee Right Aerobic Culture - Preliminary Resulted 08/26/20 14:30 Knee Right Anaerobic Culture Pending Resulted Current Medications Medications (Trade) Dose Ordered Sig/Annabel Route PRN Reason Start Time Stop Time Status Last Admin Dose Admin Albuterol Sulfate (Proventil MDI) 2 puff Q4H PRN INH Shortness of Breath 08/20/20 23:30 11/18/20 23:29 Cefepime HCl 2 gm/ Dextrose 55 ml @ 110 mls/hr EVERY 12 HOURS IVPB 08/23/20 13:00 08/30/20 12:59 08/29/20 08:25 Celecoxib (CeleBREX) 200 mg DAILY ORAL 08/27/20 09:00 11/25/20 08:59 08/28/20 09:23 Chlorhexidine Gluconate (Lisa-Hex 2%) 1 applic DAILY@2000 TOPIC 08/27/20 20:00 11/25/20 19:59 08/28/20 20:03 Diphenhydramine HCl (Benadryl) 25 mg TID PRN ORAL Itching 08/29/20 09:15 09/28/20 09:14 Docusate Sodium (Colace) 250 mg BID ORAL 08/29/20 18:00 09/28/20 17:59 Gabapentin (Neurontin) 300 mg TID ORAL 08/24/20 13:00 09/23/20 12:59 08/28/20 18:12 Hydrocortisone (Hydrocortisone) 1 applic BIDPRN PRN TOPIC Itching 08/27/20 23:00 11/25/20 22:59 Magnesium Hydroxide (Mom) 30 ml Q6H PRN ORAL Constipation 08/28/20 17:30 09/27/20 17:29 08/29/20 03:57 Methocarbamol (Robaxin) 500 mg Q8H PRN ORAL Muscle Spasm 08/24/20 09:30 09/23/20 09:29 08/24/20 17:28 Methylnaltrexone [place] (Relistor) 12 mg DAILY SUBQ 08/29/20 10:00 11/27/20 09:59 Ondansetron HCl (Zofran) 4 mg Q6H PRN IVP Nausea & Vomiting 08/20/20 14:30 09/19/20 14:29 08/28/20 16:43 Oxycodone HCl (OxyCONTIN) 20 mg Q12HR ORAL 08/26/20 18:54 09/02/20 18:53 08/28/20 20:05 Oxycodone/ Acetaminophen (Percocet 10/325) 1 tab Q4H PRN ORAL breakthrough pain 08/26/20 18:54 09/02/20 18:53 08/28/20 01:42 Senna/Docusate Sodium (Allyson-Colace) 1 tab TWICE A DAY ORAL 08/26/20 18:00 09/25/20 17:59 08/29/20 08:24 Temazepam (RestoriL) 7.5 mg HSPRN PRN ORAL Insomnia 08/26/20 13:45 09/02/20 13:44 Assessment/Plan Assessment/Plan IMPRESSION: 1. Postop day #5, status post right knee arthroscopy and synovectomy. 2. Chronic marijuana usage. DISCUSSION: Currently, the patient is doing well from a respiratory standpoint. He reports symptoms of snoring and apneic spells at night, raising possibility of obstructive sleep apnea. Currently no tests required in the hospital. Outpatient polysomnography requested. Brayan Wren Omar Syed MD Aug 29, 2020 10:36
[2020-08-29] MEDS: Relistor 12mg/0.6ml Vial SUBQ SCH (10:55)
[2020-08-29 12:00] VITALS: BP 127/85
--- NOTE | 2020-08-29 12:25 | Infectious Diseases Prog Note ---
Assessment/Plan Assessment/Plan A 1. right knee septic arthritis with pseudomonas patient went into swimming pool after last surgery 2. s/p arthroscopy, synovectomy, I and D 3. s/p fall down a flight of stairs P 1. can be discharged with PO Levaquin X 4 weeks 2. Remove PICC line Subjective ROS Limited/Unobtainable: No Constitutional: Reports: no symptoms Respiratory: Reports: no symptoms Cardiovascular: Reports: no symptoms Gastrointestinal/Abdominal: Reports: constipation Musculoskeletal: Reports: other - R knee pain Allergies: Coded Allergies: CODEINE (Verified Allergy, Intermediate, hives, 12/24/18) Uncoded Allergies: RED MEAT (Adverse Reaction, Unknown, ANAPHYLACTIC SHOCK, 12/25/18) Objective Last 24 Hour Vital Signs Date Time Temp Pulse Resp B/P (MAP) Pulse Ox O2 Delivery O2 Flow Rate FiO2 08/29/20 09:00 Room Air 08/29/20 08:00 98.1 90 16 126/85 (99) 96 08/29/20 04:00 98.6 81 14 121/72 (88) 98 08/28/20 23:50 98.6 77 15 122/73 (89) 97 08/28/20 20:35 99.2 08/28/20 19:36 Room Air 08/28/20 19:34 99.2 78 18 124/73 (90) 100 08/28/20 16:00 97.5 74 16 101/70 (80) 100 Height (Feet): 6 Height (Inches): 0.00 Weight (Pounds): 186 General Appearance: no acute distress HEENT: mucous membranes moist Respiratory/Chest: lungs clear Cardiovascular: normal rate, other - left arm PICC line Abdomen: soft, non tender Extremities: other - E knee effusion Neurologic/Psychiatric: alert, oriented x 3, responsive Microbiology Date/Time Source Procedure Growth Status 08/26/20 14:30 Knee Right Gram Stain - Final Resulted 08/26/20 14:30 Knee Right Surgical Biopsy Culture - Final Resulted 08/26/20 14:30 Knee Right Aerobic Culture - Preliminary Resulted 08/26/20 14:30 Knee Right Anaerobic Culture Pending Resulted Current Medications Medications (Trade) Dose Ordered Sig/Annabel Route PRN Reason Start Time Stop Time Status Last Admin Dose Admin Albuterol Sulfate (Proventil MDI) 2 puff Q4H PRN INH Shortness of Breath 08/20/20 23:30 11/18/20 23:29 Cefepime HCl 2 gm/ Dextrose 55 ml @ 110 mls/hr EVERY 12 HOURS IVPB 08/29/20 21:00 09/05/20 20:59 Celecoxib (CeleBREX) 200 mg DAILY ORAL 08/27/20 09:00 11/25/20 08:59 08/28/20 09:23 Chlorhexidine Gluconate (Lisa-Hex 2%) 1 applic DAILY@2000 TOPIC 08/27/20 20:00 11/25/20 19:59 08/28/20 20:03 Diphenhydramine HCl (Benadryl) 25 mg TID PRN ORAL Itching 08/29/20 09:15 09/28/20 09:14 Docusate Sodium (Colace) 250 mg BID ORAL 08/29/20 18:00 09/28/20 17:59 Gabapentin (Neurontin) 300 mg TID ORAL 08/24/20 13:00 09/23/20 12:59 08/28/20 18:12 Hydrocortisone (Hydrocortisone) 1 applic BIDPRN PRN TOPIC Itching 08/27/20 23:00 11/25/20 22:59 Magnesium Hydroxide (Mom) 30 ml Q6H PRN ORAL Constipation 08/28/20 17:30 09/27/20 17:29 08/29/20 03:57 Methocarbamol (Robaxin) 500 mg Q8H PRN ORAL Muscle Spasm 08/24/20 09:30 09/23/20 09:29 08/24/20 17:28 Methylnaltrexone [place] (Relistor) 12 mg DAILY SUBQ 08/29/20 10:00 11/27/20 09:59 08/29/20 10:55 Ondansetron HCl (Zofran) 4 mg Q6H PRN IVP Nausea & Vomiting 08/20/20 14:30 09/19/20 14:29 08/28/20 16:43 Oxycodone HCl (OxyCONTIN) 20 mg Q12HR ORAL 08/26/20 18:54 09/02/20 18:53 08/29/20 10:55 Oxycodone/ Acetaminophen (Percocet 10/325) 1 tab Q4H PRN ORAL breakthrough pain 08/26/20 18:54 09/02/20 18:53 08/28/20 01:42 Senna/Docusate Sodium (Allyson-Colace) 1 tab TWICE A DAY ORAL 08/26/20 18:00 09/25/20 17:59 08/29/20 08:24 Temazepam (RestoriL) 7.5 mg HSPRN PRN ORAL Insomnia 08/26/20 13:45 09/02/20 13:44 Isaiah Fernandes MD Aug 29, 2020 12:25
[2020-08-29 16:00] VITALS: BP 126/87
[2020-08-29] MEDS ORDERED: Hydromorphone 0.5mg/0.5ml inj IVP PRN (17:00)
[2020-08-29] MEDS: Docusate 250mg cap ORAL SCH (17:34)
[2020-08-29] MEDS: Dyna-Hex 2% Top Sol 2oz TOPIC SCH (19:47)
[2020-08-29 20:08] VITALS: BP 104/66
[2020-08-30 00:10] VITALS: BP 115/69
--- NOTE | 2020-08-30 07:27 | General Progress Note ---
Subjective Allergies: Coded Allergies: CODEINE (Verified Allergy, Intermediate, hives, 12/24/18) Uncoded Allergies: RED MEAT (Adverse Reaction, Unknown, ANAPHYLACTIC SHOCK, 12/25/18) Subjective doing better pain and knee swelling better c/o constipation Objective Last 24 Hour Vital Signs Date Time Temp Pulse Resp B/P (MAP) Pulse Ox O2 Delivery O2 Flow Rate FiO2 08/30/20 00:10 98.5 78 18 115/69 (84) 97 08/29/20 20:30 Room Air 08/29/20 20:08 99.0 83 16 104/66 (79) 97 08/29/20 16:00 98.7 78 16 126/87 (100) 100 08/29/20 12:00 99.1 86 16 127/85 (99) 98 08/29/20 09:00 Room Air 08/29/20 08:00 98.1 90 16 126/85 (99) 96 Intake and Output 08/29/20 08/30/20 19:00 07:00 Intake Total 1155 ml 820 ml Balance 1155 ml 820 ml Intake Oral 1100 ml 820 ml IV Total 55 ml # Voids 4 3 Height (Feet): 6 Height (Inches): 0.00 Weight (Pounds): 186 General Appearance: alert EENT: PERRL/EOMI Neck: supple Cardiovascular: regular rhythm Respiratory/Chest: lungs clear Extremities: other - mild swelling and tenderness rt knee Assessment/Plan Assessment/Plan: 1 infected knee better, cs negative, id on case 2 sob better [address] loco is on the case id eval cont abx cont pt/ot dc home if ok with id and ortho dw pain management Alvin Mederos MD Aug 30, 2020 07:27
[2020-08-30 08:00] VITALS: BP 100/75
[2020-08-30] MEDS: Docusate 250mg cap ORAL SCH (09:00)
[2020-08-30] MEDS: Docusate Sod/Senna tab ORAL SCH (09:00)
[2020-08-30] MEDS: Relistor 12mg/0.6ml Vial SUBQ SCH (09:00)
[2020-08-30] MEDS: celeBREX 200mg Cap **SURGERY PATIENTS ONLY ORAL SCH (09:00)
--- NOTE | 2020-08-30 09:02 | General Progress Note ---
Subjective Date patient seen: Aug 30, 2020 Time patient seen: 07:00 - am Allergies: Coded Allergies: CODEINE (Verified Allergy, Intermediate, hives, 12/24/18) Uncoded Allergies: RED MEAT (Adverse Reaction, Unknown, ANAPHYLACTIC SHOCK, 12/25/18) Subjective HISTORY OF PRESENT ILLNESS: This is a 40-year-old man who has been seen on the Med[facility]Surg floor of [facility]. Patient reports that he would like to stop the Oxycontin. Dilaudid was d/cd as per dag coater however patient had been in severe pain and was restarted on Dilaudid 0.5mg IV Q6H PRN severe pain. Possible discharge today as per dag coater. REVIEW OF SYSTEMS: Denies rash, fever, chills, sweating, dizziness, drowsiness, blurred vision, sore throat, or change in weight. No shortness of breath, chest pain, or palpitation. No nausea, vomiting, diarrhea, or blood in the stool or urine. No dysuria. Objective Last 24 Hour Vital Signs Date Time Temp Pulse Resp B/P (MAP) Pulse Ox O2 Delivery O2 Flow Rate FiO2 08/30/20 00:10 98.5 78 18 115/69 (84) 97 08/29/20 20:30 Room Air 08/29/20 20:08 99.0 83 16 104/66 (79) 97 08/29/20 16:00 98.7 78 16 126/87 (100) 100 08/29/20 12:00 99.1 86 16 127/85 (99) 98 08/29/20 09:00 Room Air Intake and Output 08/29/20 08/30/20 19:00 07:00 Intake Total 1155 ml 820 ml Balance 1155 ml 820 ml Intake Oral 1100 ml 820 ml IV Total 55 ml # Voids 4 3 Height (Feet): 6 Height (Inches): 0.00 Weight (Pounds): 186 Objective PHYSICAL EXAMINATION: GENERAL: Alert, awake, and oriented. LUNGS: Decreased breath sounds bilaterally. HEART: S1 and S2 regular. ABDOMEN: Soft, nontender. EXTREMITIES: Lower extremity range of motion of the right knee is reduced. Tenderness to palpation is slightly noted. NEURO: No changes. Assessment/Plan Assessment/Plan: (1) Right knee pain (2) Septic joint s/p arthroscopy and I+D Patient will be continued on Relistor, Dilaudid, Percocet, Neurontin and Robaxin. We will discontinue OxyContin. D/w Dr. Pryor and he concurred. Unruly Matias Aug 30, 2020 09:02
[2020-08-30] MEDS: Cefepime HCl 2 GM in D5W 55 ML IVPB SCH (09:26)
[2020-08-30 10:17] LABS: BASOPHILS % (AUTO) 1.7 % (0.0-2.0); EOSINOPHILS % (AUTO) 3.9 % (0.0-3.0); HEMATOCRIT 44.2 % (42.0-52.0); HEMOGLOBIN 14.9 G/DL (14.2-18.0); LYMPHOCYTES % (AUTO) 13.9 % (20.0-45.0); MEAN CORPUSCULAR VOLUME 97 FL (80-99); MONOCYTES % (AUTO) 10.2 % (1.0-10.0); NEUTROPHILS % (AUTO) 70.3 % (45.0-75.0); PLATELET COUNT 186 K/UL (150-450); RED BLOOD COUNT 4.54 M/UL (4.70-6.10); WHITE BLOOD COUNT 5.5 K/UL (4.8-10.8)
[2020-08-30 10:37] LABS: ANION GAP 7 mmol/L (5-15); BLOOD UREA NITROGEN 13 mg/dL (7-18); CALCIUM 9.1 MG/DL (8.5-10.1); CARBON DIOXIDE 29 MMOL/L (21-32); CHLORIDE 100 MMOL/L (98-107); CREATININE 1.1 MG/DL (0.55-1.30); POTASSIUM 4.5 MMOL/L (3.5-5.1); SODIUM 136 MMOL/L (136-145)
--- NOTE | 2020-08-30 10:50 | Pulmonology Progress Note ---
Subjective ROS Limited/Unobtainable: No Interval Events: None new reported Constitutional: Reports: no symptoms HEENT: Repors: no symptoms Respiratory: Reports: no symptoms Gastrointestinal/Abdominal: Reports: constipation Musculoskeletal: Reports: other - R knee pain Allergies: Coded Allergies: CODEINE (Verified Allergy, Intermediate, hives, 12/24/18) Uncoded Allergies: RED MEAT (Adverse Reaction, Unknown, ANAPHYLACTIC SHOCK, 12/25/18) Objective Last 24 Hour Vital Signs Date Time Temp Pulse Resp B/P (MAP) Pulse Ox O2 Delivery O2 Flow Rate FiO2 08/30/20 09:00 Room Air 08/30/20 08:00 98.8 89 16 100/75 (83) 97 08/30/20 00:10 98.5 78 18 115/69 (84) 97 08/29/20 20:30 Room Air 08/29/20 20:08 99.0 83 16 104/66 (79) 97 08/29/20 16:00 98.7 78 16 126/87 (100) 100 08/29/20 12:00 99.1 86 16 127/85 (99) 98 Intake and Output 08/29/20 08/30/20 19:00 07:00 Intake Total 1155 ml 820 ml Balance 1155 ml 820 ml Intake Oral 1100 ml 820 ml IV Total 55 ml # Voids 4 3 General Appearance: no acute distress HEENT: normocephalic Respiratory: chest wall non-tender, lungs clear Cardiovascular: normal peripheral pulses Abdomen: normal bowel sounds Laboratory Tests 08/30/20 09:40: White Blood Count 5.5, Red Blood Count 4.54L, Hemoglobin 14.9, Hematocrit 44.2, Mean Corpuscular Volume 97, Mean Corpuscular Hemoglobin 32.7H, Mean Corpuscular Hemoglobin Concent 33.6, Red Cell Distribution Width 11.0L, Platelet Count 186, Mean Platelet Volume 6.6, Neutrophils (%) (Auto) 70.3, Lymphocytes (%) (Auto) 13.9L, Monocytes (%) (Auto) 10.2H, Eosinophils (%) (Auto) 3.9H, Basophils (%) (Auto) 1.7, Sodium Level 136, Potassium Level 4.5, Chloride Level 100, Carbon Dioxide Level 29, Anion Gap 7, Blood Urea Nitrogen 13, Creatinine 1.1, Estimat Glomerular Filtration Rate > 60, Glucose Level 98, Calcium Level 9.1 Current Medications Medications (Trade) Dose Ordered Sig/Annabel Route PRN Reason Start Time Stop Time Status Last Admin Dose Admin Albuterol Sulfate (Proventil MDI) 2 puff Q4H PRN INH Shortness of Breath 08/20/20 23:30 11/18/20 23:29 Cefepime HCl 2 gm/ Dextrose 55 ml @ 110 mls/hr EVERY 12 HOURS IVPB 08/29/20 21:00 09/05/20 20:59 08/30/20 09:26 Celecoxib (CeleBREX) 200 mg DAILY ORAL 08/27/20 09:00 11/25/20 08:59 08/28/20 09:23 Chlorhexidine Gluconate (Lisa-Hex 2%) 1 applic DAILY@2000 TOPIC 08/27/20 20:00 11/25/20 19:59 08/29/20 19:47 Diphenhydramine HCl (Benadryl) 25 mg TID PRN ORAL Itching 08/29/20 09:15 09/28/20 09:14 Docusate Sodium (Colace) 250 mg BID ORAL 08/29/20 18:00 09/28/20 17:59 Gabapentin (Neurontin) 300 mg TID ORAL 08/24/20 13:00 09/23/20 12:59 08/29/20 12:40 Hydrocortisone (Hydrocortisone) 1 applic BIDPRN PRN TOPIC Itching 08/27/20 23:00 11/25/20 22:59 08/29/20 18:36 Hydromorphone HCl (Dilaudid) 0.5 mg Q6H PRN IVP Pain Scale (6-10) 08/29/20 17:00 09/05/20 16:59 08/29/20 17:26 Magnesium Hydroxide (Mom) 30 ml Q6H PRN ORAL Constipation 08/28/20 17:30 09/27/20 17:29 08/29/20 03:57 Methocarbamol (Robaxin) 500 mg Q8H PRN ORAL Muscle Spasm 08/24/20 09:30 09/23/20 09:29 08/24/20 17:28 Methylnaltrexone [place] (Relistor) 12 mg DAILY SUBQ 08/29/20 10:00 11/27/20 09:59 08/29/20 10:55 Ondansetron HCl (Zofran) 4 mg Q6H PRN IVP Nausea & Vomiting 08/20/20 14:30 09/19/20 14:29 08/28/20 16:43 Oxycodone/ Acetaminophen (Percocet ) 1 tab Q4H PRN ORAL breakthrough pain 08/26/20 18:54 09/02/20 18:53 08/28/20 01:42 Senna/Docusate Sodium (Allyson-Colace) 1 tab TWICE A DAY ORAL 08/26/20 18:00 09/25/20 17:59 08/29/20 08:24 Temazepam (RestoriL) 7.5 mg HSPRN PRN ORAL Insomnia 08/26/20 13:45 09/02/20 13:44 Assessment/Plan Assessment/Plan IMPRESSION: 1. Postop day #6, status post right knee arthroscopy and synovectomy. 2. Chronic marijuana usage. DISCUSSION: Currently, the patient is doing well from a respiratory standpoint. He reports symptoms of snoring and apneic spells at night, raising possibility of obstructive sleep apnea. Currently no tests required in the hospital. Outpatient polysomnography reque sted. Brayan Wren Omar Syed MD Aug 30, 2020 10:50
--- NOTE | 2020-08-30 11:09 | Infectious Diseases Prog Note ---
Assessment/Plan Assessment/Plan antibiotics : cefepime A 1. right knee septic arthritis with pseudomonas patient went into swimming pool after last surgery 2. s/p arthroscopy, synovectomy, i and d 3. s/p fall down a flight of stairs P 1. continue cefepime 23 more days ( ordered with home health ) 2. cbc, bmp, lft q weekly 3. will follow up cultures Subjective Constitutional: Denies: fever, chills Respiratory: Denies: shortness of breath, dry cough Cardiovascular: Denies: chest pain Gastrointestinal/Abdominal: Denies: nausea, vomiting, diarrhea Musculoskeletal: Denies: pain Allergies: Coded Allergies: CODEINE (Verified Allergy, Intermediate, hives, 12/24/18) Uncoded Allergies: RED MEAT (Adverse Reaction, Unknown, ANAPHYLACTIC SHOCK, 12/25/18) Objective Last 24 Hour Vital Signs Date Time Temp Pulse Resp B/P (MAP) Pulse Ox O2 Delivery O2 Flow Rate FiO2 08/30/20 09:00 Room Air 08/30/20 08:00 98.8 89 16 100/75 (83) 97 08/30/20 00:10 98.5 78 18 115/69 (84) 97 08/29/20 20:30 Room Air 08/29/20 20:08 99.0 83 16 104/66 (79) 97 08/29/20 16:00 98.7 78 16 126/87 (100) 100 08/29/20 12:00 99.1 86 16 127/85 (99) 98 Height (Feet): 6 Height (Inches): 0.00 Weight (Pounds): 186 Respiratory/Chest: lungs clear Cardiovascular: normal rate, regular rhythm, no gallop/murmur Abdomen: soft, non tender Extremities: no edema, other - right knee in dressings, left arm PICC Laboratory Tests Test 08/30/20 09:40 White Blood Count 5.5 K/UL (4.8-10.8) Red Blood Count 4.54 M/UL (4.70-6.10) L Hemoglobin 14.9 G/DL (14.2-18.0) Hematocrit 44.2 % (42.0-52.0) Mean Corpuscular Volume 97 FL (80-99) Mean Corpuscular Hemoglobin 32.7 PG (27.0-31.0) H Mean Corpuscular Hemoglobin Concent 33.6 G/DL (32.0-36.0) Red Cell Distribution Width 11.0 % (11.6-14.8) L Platelet Count 186 K/UL (150-450) Mean Platelet Volume 6.6 FL (6.5-10.1) Neutrophils (%) (Auto) 70.3 % (45.0-75.0) Lymphocytes (%) (Auto) 13.9 % (20.0-45.0) L Monocytes (%) (Auto) 10.2 % (1.0-10.0) H Eosinophils (%) (Auto) 3.9 % (0.0-3.0) H Basophils (%) (Auto) 1.7 % (0.0-2.0) Sodium Level 136 MMOL/L (136-145) Potassium Level 4.5 MMOL/L (3.5-5.1) Chloride Level 100 MMOL/L (98-107) Carbon Dioxide Level 29 MMOL/L (21-32) Anion Gap 7 mmol/L (5-15) Blood Urea Nitrogen 13 mg/dL (7-18) Creatinine 1.1 MG/DL (0.55-1.30) Estimat Glomerular Filtration Rate > 60 mL/min (>60) Glucose Level 98 MG/DL (74-106) Calcium Level 9.1 MG/DL (8.5-10.1) Current Medications Medications (Trade) Dose Ordered Sig/Annabel Route PRN Reason Start Time Stop Time Status Last Admin Dose Admin Albuterol Sulfate (Proventil MDI) 2 puff Q4H PRN INH Shortness of Breath 08/20/20 23:30 11/18/20 23:29 Cefepime HCl 2 gm/ Dextrose 55 ml @ 110 mls/hr EVERY 12 HOURS IVPB 08/29/20 21:00 09/05/20 20:59 08/30/20 09:26 Celecoxib (CeleBREX) 200 mg DAILY ORAL 08/27/20 09:00 11/25/20 08:59 08/28/20 09:23 Chlorhexidine Gluconate (Lisa-Hex 2%) 1 applic DAILY@2000 TOPIC 08/27/20 20:00 11/25/20 19:59 08/29/20 19:47 Diphenhydramine HCl (Benadryl) 25 mg TID PRN ORAL Itching 08/29/20 09:15 09/28/20 09:14 Docusate Sodium (Colace) 250 mg BID ORAL 08/29/20 18:00 09/28/20 17:59 Gabapentin (Neurontin) 300 mg TID ORAL 08/24/20 13:00 09/23/20 12:59 08/29/20 12:40 Hydrocortisone (Hydrocortisone) 1 applic BIDPRN PRN TOPIC Itching 08/27/20 23:00 11/25/20 22:59 08/29/20 18:36 Hydromorphone HCl (Dilaudid) 0.5 mg Q6H PRN IVP Pain Scale (6-10) 08/29/20 17:00 09/05/20 16:59 08/29/20 17:26 Magnesium Hydroxide (Mom) 30 ml Q6H PRN ORAL Constipation 08/28/20 17:30 09/27/20 17:29 08/29/20 03:57 Methocarbamol (Robaxin) 500 mg Q8H PRN ORAL Muscle Spasm 08/24/20 09:30 09/23/20 09:29 08/24/20 17:28 Methylnaltrexone [place] (Relistor) 12 mg DAILY SUBQ 08/29/20 10:00 11/27/20 09:59 08/29/20 10:55 Ondansetron HCl (Zofran) 4 mg Q6H PRN IVP Nausea & Vomiting 08/20/20 14:30 09/19/20 14:29 08/28/20 16:43 Oxycodone/ Acetaminophen (Percocet 10/325) 1 tab Q4H PRN ORAL breakthrough pain 08/26/20 18:54 09/02/20 18:53 08/28/20 01:42 Senna/Docusate Sodium (Allyson-Colace) 1 tab TWICE A DAY ORAL 08/26/20 18:00 09/25/20 17:59 08/29/20 08:24 Temazepam (RestoriL) 7.5 mg HSPRN PRN ORAL Insomnia 08/26/20 13:45 09/02/20 13:44 Cheryl Guerra MD Aug 30, 2020 11:09
[2020-08-30 12:00] VITALS: BP 111/75
--- NOTE | 2020-09-01 12:41 | Discharge Summary ---
Discharge Summary Discharge Summary _ DATE OF ADMISSION: 08/20/2020 DATE OF DISCHARGE: 08/30/2020 DISCHARGED BY: Dr. Mederos REASON FOR ADMISSION: 40 years old male with recent right knee arthroscopy and synovectomy on 07/22 presented to emergency department complaining of right knee swelling. Patient was seen in emergency department multiple times with recurrent right knee effusion. Patient apparently went to swimming pool after his last surgery. Recent arthrocentesis showed increased blood cells , but no organisms. Patient presented for admission for right knee washout by his orthopedic surgeon. He denies new injury . Upon evaluation vital signs were stable. Laboratory work-up revealed no leukocytosis, stable hemoglobin,hematocrit and platelet count. Stable electrolytes and renal parameters. Lactic acid 1.5. CRP 16.3 Rapid COVID-19 was negative In emergency department patient medicated for pain and admitted to medical surgical floor for further management. CONSULTANTS: orthopedic surgeon Dr. Carroll pulmonary Dr. Evans Pain specialist Dr. Pryor ID specialist Dr. Guerra HOSPITAL COURSE: Patient admitted to medical surgical floor with right knee septic joint . Patient subsequently undergone right knee arthroscopy and synovectomy, medial and lateral patellofemoral compartment with irrigation and debridement of the right knee on 08/20. Patient tolerated procedure well. Patient was on broad-spectrum antibiotics. Pain management was addressed as per pain specialist recommendation Culture of the right knee aspirate revealed growth of Pseudomonas . Antibiotic regimen optimized as per ID specialist recommendation. Patient will need total of 6 weeks of antibiotics. Patient undergone placement of PICC line due to long-term use of antibiotics. Venous duplex bilateral lower extremity revealed no evidence of acute DVT. Pain was controlled . Bowel regimen instituted . Supportive care provided. No fevers, no leukocytosis Patient clinically stabilized and was ready for discharge home with home health services to complete the course of antibiotics for total of 6 weeks with weekly CBC , BMP and LFT monitoring. Patient reported symptoms of snoring and apneic spells at night , raising possibility of obstructive sleep apnea. Patient was recommended outpatient polysomnogram. Pulse oximetry remained stable on room air . No signs of respiratory distress Patient clinically stabilized and was ready for discharge to home with home health services FINAL DIAGNOSES: Right knee septic arthritis with Pseudomonas Status post right knee arthroscopy and synovectomy, medial and lateral patellofe moral compartment with irrigation and debridement of right knee Right knee pain Chronic marijuana user Shortness of breath DISCHARGE MEDICATIONS: See Medication Reconciliation list. DISCHARGE INSTRUCTIONS: Patient was discharged home with home health services. Follow up with primary care provider in one week. I have been assigned to dictate discharge summary for this account. I was not involved in the patient's management. Silvana Gimenez NP Sep 01, 2020 12:41
== END 2020-08-30 13:05 | disposition home health service (06) | DRG 313 ==
LOC: EMR 11:33 → 3E 13:17 → EDBEDREQ 16:54 → 3E 08-21 14:12
PROC: 0S9C4ZZ Drainage of Right Knee Joint, Percutaneous Endoscopic Approach (ICD-10-PCS; 2020-08-20)
PROC: 0SBC4ZZ Excision of Right Knee Joint, Percutaneous Endoscopic Approach (ICD-10-PCS; principal; 2020-08-20 14:00)
PROC: 02HV33Z Insertion of Infusion Device into Superior Vena Cava, Percutaneous Approach (ICD-10-PCS; 2020-08-24)
DX: M00.861 Arthritis due to other bacteria, right knee (principal); B96.5 Pseudomonas (aeruginosa) (mallei) (pseudomallei) as the cause of diseases classified elsewhere; F12.90 Cannabis use, unspecified, uncomplicated; R06.02 Shortness of breath; Z91.81 History of falling; Z88.6 Allergy status to analgesic agent
CPT/HCPCS: 36415; 36573; 71045; 76937; 80048; 80202; 85025; 86592; 87070; 87075; 87181; 87205; 93970; 94003; 94150; 96374; 96375; 99285; C9399; J2180; J2250; J2405; U0002